=== PATIENT | male | born 1950 | race Caucasian/White ===

== ENCOUNTER → 2017-12-22 12:28 | Outpatient (CLI) | payer MEDICARE, SELFPAY ==
[2017-12-20 10:04] VITALS: TEMP 35.8
--- NOTE | 2017-12-22 14:10 | DI.CT.S_ITS ---
PROCEDURE: CT ABDOMEN PELVIS W CON INDICATIONS: 67 year-old male with left lower quadrant abdominal pain. TECHNIQUE: After the administration of oral and intravenous contrast, 5 mm thick sections acquired from the diaphragms to the symphysis. 5 mm thick coronal and sagittal reformats were performed. For radiation dose reduction, the following was used: automated exposure control, adjustment of mA and/or kV according to patient size. COMPARISON: None. FINDINGS: Image quality: Excellent. ABDOMEN: Lung bases: Lung bases are clear. Heart size is normal. Solid organs: Liver is normal in size, with diffuse fatty infiltration of the liver. Gallbladder wall thickness is normal. Biliary system is non-dilated. Pancreas enhances normally. Spleen is normal in size and enhancement. No adrenal nodules. Kidneys are normal in size and enhancement, with mild left hydroureteronephrosis. On axial image 53, 8 x 5 x 5 mm mid left ureteral stone is present. Peritoneum and bowel: Stomach, small bowel, and colon loops are normal in caliber and wall thickness. There is mild sigmoid colon diverticulosis. The appendix is normal in caliber. No free fluid or air. Nodes and vessels: No retroperitoneal or mesenteric adenopathy. Aorta and inferior vena cava are normal in caliber, with mild aortic atherosclerosis. Miscellaneous: No ventral hernias. PELVIS: Genitourinary: Bladder wall thickness is normal. Prostate gland is normal in size. Miscellaneous: No inguinal hernias or adenopathy. Bones: No suspicious bony lesions. No vertebral body compression fractures. IMPRESSION: 1. 8 x 5 x 5 mm mid left ureteral stone causes mild left hydroureteronephrosis. 2. Mild sigmoid colon diverticulosis, without acute diverticulitis. 3. Diffuse fatty infiltration of the liver. Dictated by: Kael Pérez M.D. on 12/22/2017 at 14:35 Approved by: Kael Pérez M.D. on 12/22/2017 at 14:43
== END ==
PROVIDERS: PCP Family Medicine; Visit Provider Physician Assistant
DX: N20.1 Calculus of ureter (principal); N13.30 Unspecified hydronephrosis; K57.90 Diverticulosis of intestine, part unspecified, without perforation or abscess without bleeding; K76.0 Fatty (change of) liver, not elsewhere classified
CPT/HCPCS: 74177; Q9967

== ENCOUNTER 2017-12-22 20:22 | Emergency (ER) | payer MEDICARE, SELFPAY ==
[2017-12-20 10:04] VITALS: TEMP 35.8
[2017-12-22 20:28] VITALS: BP 151/85; PULSE 80; RESP 16; TEMP 36.3; O2SAT 96; BMI 27.3
[2017-12-22 20:49] LABS: Appearance Urine UA CLEAR; Bilirubin Urine UA NEGATIVE (NEGATIVE); Color Urine UA YELLOW; Glucose Urine UA NEGATIVE (NEGATIVE); Ketones Urine UA NEGATIVE (NEGATIVE); Leukocyte Esterase Urine UA NEGATIVE (NEGATIVE); Nitrite Urine UA NEGATIVE (NEGATIVE); Occult Blood Urine UA 2+ (NEGATIVE); Protein Urine UA NEGATIVE (NEGATIVE); Specific Gravity Urine UA <=1.005 (1.000-1.035); Urobilinogen Urine UA 0.2 E.U./dL (0.2); pH Urine UA 6.5 (4.5-8.0)
[2017-12-22 21:01] LABS: RBC Urine 0-1/HPF (0-5/HPF); Squamous Epithelial Cell Urine None Seen; WBC Urine 1-5/HPF (0-5/HPF)
[2017-12-22 21:02] LABS: Culture Indicated Urine Cult Not Indicated
--- NOTE | 2017-12-22 23:11 | PC.NURSE ---
pt called after left w/o being seen after triaged. pt reports has some pain but tolerable. pt got a call from a doctor to check into er but not sure why. pt denies fever/chills, vomiting or urinary obstruction. pt advised to call pcp in the morning if pt needs to be seen in er and to discuss plan of care and advised RTE if worsening sx, vomiting, fever, unable to void and pt and spouse verbalized the understanding.
--- NOTE | 2017-12-23 03:50 | ED.MALEGU ---
HPI - Male Genitourinary General Chief complaint: Urogenital-Male Stated complaint: KIDNEY STONES History of Present Illness HPI Narrative: patient not seen or evaluated by me. Related Data Home Medications Medication Instructions Recorded Confirmed aspirin 81 mg PO QDAY #0 05/25/17 12/22/17 [vitamin d3] #0 09/09/17 12/20/17 urea [Sandee Lo 39] 1 shmuel TOPICAL QDAY #0 10/05/17 12/22/17 Previous Rx's Medication Instructions Recorded metformin 1,000 mg PO BID #180 mg 12/03/17 Allergies Allergy/AdvReac Type Severity Reaction Status Date / Time naproxen [From NAPROSYN] Allergy Unknown stomach Unverified 12/20/17 09:57 pain PFSH Medical History Diabetes mellitus (Acute) Surgical History Status post knee surgery Family History Father Heart disease Mother Age: 89 Cancer Hypertension Social History Smoking Status: Never smoker MDM - Male Genitourinary Lab Data Lab Results 12/22/17 Range/Units 20:36 Urine Color Yellow Urine Appearance Clear Urine pH 6.5 (4.5-8.0) Ur Specific [place] <=1.005 (1.000-1.035) Urine Protein Negative (NEGATIVE) Urine Glucose (UA) Negative (NEGATIVE) g/dL Urine Ketones Negative (NEGATIVE) Urine Occult Blood 2+ H (NEGATIVE) Urine Nitrate Negative (NEGATIVE) Urine Bilirubin Negative (NEGATIVE) Urine Urobilinogen 0.2 (0.2) E.U./dL Ur Leukocyte Esterase Negative (NEGATIVE) Urine RBC 0-1/hpf D (0-5/HPF) Urine WBC 1-5/hpf (0-5/HPF) Ur Squamous Epith Cells None seen Ur Culture Indicated? Cult not indicated Micro UA Comment Not Reportable Discharge Plan Departure Patient Disposition: Left Against Medical Advice Discharge Date/Time: 12/22/17 22:30 Interventions: ED Discharge Assessment Last Done: 12/22/17 23:14
== END 2017-12-22 22:30 | disposition left against medical advice (07) ==
PROVIDERS: Emergency Provider Emergency Medicine; Family Provider Family Medicine; PCP Family Medicine
DX: R10.32 Left lower quadrant pain (principal); N20.0 Calculus of kidney
CPT/HCPCS: 74177; 81001; 81003; 99282; Q9967

== ENCOUNTER 2018-01-24 18:09 | Inpatient (IN) | payer MEDICARE, SELFPAY ==
--- NOTE | 2018-01-24 18:13 | ED_ITS ---
HPI - General Adult General Chief complaint: Urogenital-Male Stated complaint: BODY SHAKES,BLOOD IN URINE,PALE HANDS Time Seen by Provider: 01/24/18 18:12 Source: patient Mode of arrival: ambulatory Limitations: no limitations History of Present Illness HPI narrative: Male here and blood in his urine. Patient states that approximately 1.5 weeks ago he had a left-sided lithotripsy and stent placement for a renal stone. Patient states that the procedure went well. He states that since then he has had progressive worsening of blood in his urine and urinary incontinence. Patient states that his pain has been controlled. He states that last night at approximately 3 o'clock in the morning he had a sudden onset of rigors. He states that he has not felt feverish. Also had body aches. States that he crawled under some blankets. He states that this morning things improved somewhat but then returned this afternoon. Still having urinary symptoms. States that the stent is painful however has been controlled. He is currently not on any antibiotics. Related Data Home Medications Medication Instructions Recorded Confirmed aspirin 81 mg PO QDAY #0 05/25/17 12/30/17 [vitamin d3] #0 09/09/17 12/30/17 urea [[place] Lo 39] 1 shmuel TOPICAL QDAY #0 10/05/17 12/30/17 multivitamin capsule 1 cap PO DAILY 12/30/17 12/30/17 niacinamide 100 mg tablet 100 mg PO DAILY 12/30/17 12/30/17 red yeast rice 600 mg capsule 600 mg PO BID 12/30/17 12/30/17 Previous Rx's Medication Instructions Recorded metformin 1,000 mg PO BID #180 mg 12/03/17 oxycodone-acetaminophen 5 mg-325 1 tab PO Q4H PRN #20 tab 12/23/17 mg tablet tamsulosin 0.4 mg capsule 0.4 mg PO DAILY #30 cap 12/23/17 Allergies Allergy/AdvReac Type Severity Reaction Status Date / Time naproxen [From NAPROSYN] Allergy Unknown stomach Verified 01/24/18 18:41 pain Review of Systems Constitutional Reports body ache(s), Reports chills, Reports fatigue, Denies fever(s), Denies headache(s), Denies lethargy and Denies weakness ENT Ears, Nose, Mouth, and Throat: Denies vertigo, Denies dizziness and Denies headache(s) Cardiovascular Denies chest pain, Denies irregular heart rhythm, Denies lightheadedness, Denies palpitations, Denies dyspnea, Denies dyspnea on exertion and Denies orthopnea Respiratory Denies cough, Denies dyspnea, Denies dyspnea on exertion and Denies wheezing Gastrointestinal Gastrointestinal: Denies abdominal pain, Denies change in bowel habits, Denies diarrhea, Denies nausea and Denies vomiting Genitourinary Comments: Blood in his urine, painful stent, urinary incontinence Musculoskeletal Denies back pain, Denies muscle weakness, Denies numbness and Denies tingling Integumentary/Breasts Denies pruritus, Denies erythema, Denies rash and Denies wounds Neurologic Denies confusion, Denies vertigo, Denies dizziness, Denies headache(s), Denies numbness, Denies tingling and Denies weakness Psychiatric Denies confusion Endocrine Reports fatigue and Denies palpitations Hematologic/Lymphatic Denies easy bruising Allergic/Immunologic Denies wheezing FOR[facility] Medical History Nephrolithiasis (Acute) Multiple actinic keratoses (09/09/17) Rosacea (09/09/17) Type 2 diabetes mellitus without complication, without long-term current use of insulin (09/09/17) Diabetes mellitus (Acute) Surgical History Status post knee surgery Family History Father Heart disease Mother Age: 89 Cancer Hypertension Social History Smoking Status: Never smoker Exam Initial Vital Signs Initial Vital Signs: Vital Signs Temperature 97.8 F 01/24/18 18:15 Pulse Rate 128 H 01/24/18 18:15 Respiratory Rate 20 01/24/18 18:15 Pulse Oximetry 99 01/24/18 18:15 Const General: cooperative, healthy appearing, comfortable, well developed and No acute distress Nutritional Appearance: average body habitus Orientation: alert, awake and oriented x3 HENMT Head: normal to inspection, normocephalic and atraumatic Resp Effort & Inspection: normal respiratory effort, able to speak in complete sentences, no respiratory distress and no use of accessory muscles Auscultation: clear to auscultation bilaterally, no rales, no rhonchi and no wheezes Cardio Rate: tachycardic Rhythm: regular rhythm Pulses: radial pulses present GI Inspection: normal to inspection and non-distended Palpation: soft, No firm, No guarding and No tender Back/Spine/Pelvis Back: No CVA tenderness Skin General: no rashes or lesions noted and pallor Lesions: no lesions Rashes: no rashes Neuro General: alert, awake and oriented x3 Cognition: normal cognition Speech: speech normal Motor: muscle tone normal throughout Sensory Exam: no sensory deficits noted Extrem General: normal to inspection, capillary refill normal and normal exam except as noted Course Orders Ordered: ED Orders 01/24/18 18:30 Blood Culture Stat Complete Blood Count AUTO DIFF Stat Comprehensive Metabolic Panel Stat Lactate (Lactic Acid) Stat Lipase Stat Type and Screen Stat 01/24/18 19:15 Ictotest Urine Stat Urinalysis and Microscopic Stat Urine Culture Stat Discontinued Medications Sodium Chloride (Normal Saline 0.9%) 1,000 mls @ 1,000 mls/hr IV BOLUS ONE Stop: 01/24/18 19:36 Last Infusion: 01/24/18 19:42 Dose: 0 mls/hr Admin: 01/24/18 18:41 Dose: 1,000 mls/hr Vital Signs - 8 hr 01/24/18 18:15 01/24/18 19:42 01/24/18 19:43 Temperature 97.8 F Pulse Rate 128 H 102 H 102 H Respiratory Rate 20 20 Blood Pressure [Right Arm] 146/59 H 146/59 H Pulse Oximetry 99 [address] [facility] Narrative Medical decision making narrative: Patient with nitrite positive urine with white blood cells and bacteria. Has an elevated white blood cell count and was tachycardic upon arrival. Not hypotensive. Does have an elevated lactate. Discussed the case with Dr. De Dios who is communications equipment supervisor for the patient's urology group. The patient's urologist ismichelet Gonsales at [facility]. Dr. De Dios reviewed the patient's clinic labs and found that the patient has no prior positive urine cultures. No prior urine cultures here and our system that were positive. Will give the patient 2 g of Ancef and IV fluids. Discussed the case with patient's primary Dr Gross who accepts admission. Will admit the patient for IV antibiotics and fluid resuscitation. Blood cultures were ordered. Urine culture also ordered. Discussed the plan with the patient and his . They expressed understanding and agreement. Lab Data Lab results reviewed: Yes I reviewed the patient's lab results. Result diagrams: 01/24/18 18:30 01/24/18 18:30 Lab Results 01/24/18 01/24/18 01/24/18 Range/Units 18:30 18:30 18:30 WBC 15.2 H (4.5-11.0) X10^3/uL RBC 4.87 (4.5-5.9) X10^6/uL Hgb 15.4 (13.5-17.5) g/dL Hct 44.2 (41-53) % MCV 90.8 (80-100) fL MCH 31.7 (26-34) PG MCHC 34.9 (30-36) % RDW 12.9 (11.6-14.8) % Plt Count 206 (150-400) X10^3/uL Neut % (Auto) 61.7 (50-75) % Lymph % (Auto) 26.4 (25-40) % Charl[place] % (Auto) 11.2 (3-14) % Eos % (Auto) 0.2 L (2-4) % Baso % (Auto) 0.5 (0-2) % Neut # (Auto) 9400 H (0769-7558) /uL Sodium 143 (137-145) mmol/L Potassium 3.7 (3.4-5.1) mmol/L Chloride 98 (98-107) mmol/L Carbon Dioxide 27 (22-32) mmol/L BUN 16 (9-20) mg/dL Creatinine 1.00 (0.66-1.25) mg/dL Estimated GFR > 60.0 (>60) mL/min BUN/Creatinine Ratio 16.0 (6-22) Glucose 193 H (80-110) mg/dL Lactate 2.8 H (0.7-2.1) mmol/L Calcium 9.8 (8.4-10.2) mg/dL Total Bilirubin 1.0 (0.2-1.3) mg/dL AST 35 (17-59) IU/L ALT 60 (21-72) IU/L Alkaline Phosphatase 78 (38-126) U/L Total Protein 8.1 (6.3-8.2) g/dL Albumin 4.7 (3.5-5.0) g/dL Globulin 3.4 (1.7-4.1) g/dL Albumin/Globulin Ratio 1.4 (1.0-2.8) Lipase 84 (23-300) U/L Urine Color Urine Appearance Urine pH (4.5-8.0) Ur Specific [place] (1.000-1.035) Urine Protein (Negative) Urine Glucose (UA) (Normal) g/dL Urine Ketones (NEGATIVE) Urine Occult Blood (Negative) Urine Nitrate (Negative) Urine Bilirubin (NEGATIVE) Urine Ictotest (Negative) Urine Urobilinogen (0.2) E.U./dL Ur Leukocyte Esterase (NEGATIVE) Urine RBC (0-5/HPF) Urine WBC (0-5/HPF) Ur Squamous Epith Cells Urine Bacteria (None) Ur Culture Indicated? Micro UA Comment Blood Type Antibody Screen 01/24/18 01/24/18 Range/Units 18:30 19:15 WBC (4.5-11.0) X10^3/uL RBC (4.5-5.9) X10^6/uL Hgb (13.5-17.5) g/dL Hct (41-53) % MCV (80-100) fL MCH (26-34) PG MCHC (30-36) % RDW (11.6-14.8) % Plt Count (150-400) X10^3/uL Neut % (Auto) (50-75) % Lymph % (Auto) (25-40) % [place] % (Auto) (3-14) % Eos % (Auto) (2-4) % Baso % (Auto) (0-2) % Neut # (Auto) (0004-1600) /uL Sodium (137-145) mmol/L Potassium (3.4-5.1) mmol/L Chloride (98-107) mmol/L Carbon Dioxide (22-32) mmol/L BUN (9-20) mg/dL Creatinine (0.66-1.25) mg/dL Estimated GFR (>60) mL/min BUN/Creatinine Ratio (6-22) Glucose (80-110) mg/dL Lactate (0.7-2.1) mmol/L Calcium (8.4-10.2) mg/dL Total Bilirubin (0.2-1.3) mg/dL AST (17-59) IU/L ALT (21-72) IU/L Alkaline Phosphatase (38-126) U/L Total Protein (6.3-8.2) g/dL Albumin (3.5-5.0) g/dL Globulin (1.7-4.1) g/dL Albumin/Globulin Ratio (1.0-2.8) Lipase (23-300) U/L Urine Color Red Urine Appearance Sl cloudy Urine pH 5.0 (4.5-8.0) Ur Specific [place] 1.025 (1.000-1.035) Urine Protein 3+ H (Negative) Urine Glucose (UA) Trace (Normal) g/dL Urine Ketones Trace H (NEGATIVE) Urine Occult Blood 3+ H (Negative) Urine Nitrate Positive (Negative) Urine Bilirubin 1+ H (NEGATIVE) Urine Ictotest Negative (Negative) Urine Urobilinogen 0.2 (0.2) E.U./dL Ur Leukocyte Esterase Trace H (NEGATIVE) Urine RBC >100/hpf (0-5/HPF) Urine WBC 5-10/hpf H (0-5/HPF) Ur Squamous Epith Cells 0-1 /hpf Urine Bacteria Few (2-10) H (None) Ur Culture Indicated? Not Reportable Micro UA Comment Not Reportable Blood Type O Positive Antibody Screen Negative Discharge Plan Departure Patient Disposition: Admitted as Observation Clinical Impression: Sepsis, Urinary tract infection Prescriptions: No Action aspirin 81 MG tablet,delayed release (DR/EC) 81 mg PO QDAY Qty: 0 RF: 0 [vitamin d3] Qty: 0 RF: 0 urea [[place] Lo 39] 39 % cream 1 shmuel Topical QDAY Qty: 0 RF: 0 metformin 1,000 MG tablet 1,000 mg PO BID Qty: 180 RF: 0 tamsulosin 0.4 mg capsule,extended release 24hr 0.4 mg PO DAILY Qty: 30 RF: 0 oxycodone-acetaminophen [Percocet] 5-325 mg tablet 1 tab PO Q4H PRN (Reason: pain) Qty: 20 RF: 0 multivitamin capsule 1 cap PO DAILY RF: 0 red yeast rice 600 mg capsule 600 mg PO BID RF: 0 niacinamide 100 mg tablet 100 mg PO DAILY RF: 0
[2018-01-24 18:15] VITALS: PULSE 128; RESP 20; TEMP 36.6; O2SAT 99; BMI 26.4
[2018-01-24] MEDS: SODIUM CHLORIDE 0.9% 1,000 ML 1000 ML IV (18:41)
--- NOTE | 2018-01-24 18:43 | PC.NURSE ---
IV start with 1st BC, Lactate, rainbow, tall purple tubes
[2018-01-24 18:46] LABS: Add Manual Diff / Slide Review NO; Basophils Percent Auto 0.5 % (0-2); Eosinophils Percent Auto 0.2 % (2-4); Hematocrit 44.2 % (41-53); Hemoglobin 15.4 g/dL (13.5-17.5); Lymphocytes Percent Auto 26.4 % (25-40); Mean Corpuscular HGB Conc 34.9 % (30-36); Mean Corpuscular Hemoglobin 31.7 PG (26-34); Mean Corpuscular Volume 90.8 fL (80-100); Monocytes Percent Auto 11.2 % (3-14); Neutrophils Absolute Auto 9400 /uL (3000-5900); Neutrophils Percent Auto 61.7 % (50-75); Platelet Count 206 X10^3/uL (150-400); Red Blood Cell Count 4.87 X10^6/uL (4.5-5.9); Red Cell Distribution Width 12.9 % (11.6-14.8); White Blood Cell Count 15.2 X10^3/uL (4.5-11.0)
[2018-01-24 18:53] LABS: Lactate (Lactic Acid) 2.8 mmol/L (0.7-2.1)
[2018-01-24 18:54] LABS: Alanine Aminotransferase 60 IU/L (21-72); Albumin 4.7 g/dL (3.5-5.0); Albumin Globulin Ratio 1.4 (1.0-2.8); Alkaline Phosphatase 78 U/L (38-126); Aspartate Aminotransferase 35 IU/L (17-59); Blood Urea Nitrogen 16 mg/dL (9-20); Calcium 9.8 mg/dL (8.4-10.2); Carbon Dioxide 27 mmol/L (22-32); Chloride 98 mmol/L (98-107); Estimated Glomerular Filt Rate > 60.0 mL/min (>60); Globulin 3.4 g/dL (1.7-4.1); Glucose 193 mg/dL (80-110); HEMOLYSIS < 15 (0-50); Lipase 84 U/L (23-300); Sodium 143 mmol/L (137-145); Total Protein 8.1 g/dL (6.3-8.2)
[2018-01-24 19:11] LABS: Potassium 3.7 mmol/L (3.4-5.1)
[2018-01-24 19:20] LABS: Appearance Urine UA SL CLOUDY; Bilirubin Urine UA 1+ (NEGATIVE); Color Urine UA RED; Glucose Urine UA TRACE g/dL (Normal); Ketones Urine UA TRACE (NEGATIVE); Leukocyte Esterase Urine UA TRACE (NEGATIVE); Nitrite Urine UA POSITIVE (Negative); Occult Blood Urine UA 3+ (Negative); Protein Urine UA 3+ (Negative); Specific Gravity Urine UA 1.025 (1.000-1.035); Urobilinogen Urine UA 0.2 E.U./dL (0.2)
[2018-01-24 19:33] LABS: Ictotest Urine Negative (Negative); RBC Urine >100/HPF (0-5/HPF); Squamous Epithelial Cell Urine 0-1 /HPF; WBC Urine 5-10/HPF (0-5/HPF)
[2018-01-24 19:34] LABS: Bacteria Urine Few (2-10)
[2018-01-24 19:42] VITALS: BP 146/59; PULSE 102; RESP 20; O2SAT 96
[2018-01-24 19:43] VITALS: BP 146/59; PULSE 102; O2SAT 96
--- NOTE | 2018-01-24 19:50 | PC.NURSE ---
reports had lithotripsy and stent placed in L Ureter 01/07. Having incontinence ever since. Hematuria and shaking chills w/o fever
[2018-01-24] MEDS: SODIUM CHLORIDE 0.9% 1,000 ML 150 ML IV (20:14)
[2018-01-24] MEDS: CEFTRIAXONE 2 GM/50 ML FROZ.PIGGY IV (20:14)
[2018-01-24 20:53] VITALS: BP 129/67; PULSE 109; RESP 16; O2SAT 98
--- NOTE | 2018-01-24 21:25 | PM.HP.1 ---
History of Present Illness Date Patient Seen: 01/24/18 Time Patient Seen: 21:00 Chief complaint: BODY SHAKES,BLOOD IN URINE,PALE HANDS Narrative: 68-year-old male with a history of type 2 diabetes with recent left urolithiasis status post lithotripsy and stenting now with chills and rigors. On 01/14/18 he underwent lithotripsy and left ureteral stent placement with Dr. Gonsales at [facility] for a large left ureteral stone not responsive to conservative management. Following the procedure he had persistent hematuria and intermittent urinary incontinence but was told this was within the realm of normal after his procedure. In the last three or four days he has had progressively worse urinary incontinence as well as continued hematuria and subjective fevers. Approximately 3:00 a.m. this morning he developed terrible shakes and chills. He turned up the heat and crawled under multiple blankets and went back to bed for several hours. He did okay throughout the day until dinnertime this evening when the shakes and chills returned. He was brought to the emergency department by his . He continues to have left-sided flank pain however he states it feels different than when he had the stone. Rates his pain 3-4/10. He has been managing with Tylenol and ibuprofen with only occasional oxycodone. In the emergency department UA was positive for infection. White blood cell count was elevated as was lactate. Dr. Zhu spoke with Dr. De Dios with Urology who recommended IV antibiotics and leaving his stent in place. There is no need for surgical intervention at this time so patient will be admitted to [facility]. His mother's 90th birthday is in two days and he hopes to be out of the hospital by then. 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 Safety & Behavioral: Feels Safe in Current Yes Environment Been Physically Hurt or No Threatened By a Person Tobacco & Substance use: Smoking Status Never smoker alcohol intake frequency a few times a week Substance Use Type does not use Meds Home Medications Medication Instructions Recorded Confirmed Type aspirin 81 mg PO QDAY #0 05/25/17 01/24/18 History [vitamin d3] 1 tab PO DAILY #0 09/09/17 01/24/18 History metformin 1,000 mg PO BID #180 mg 12/03/17 01/24/18 Rx oxycodone-acetaminophen 5 mg-325 1 tab PO Q4H PRN #20 tab 12/23/17 01/24/18 Rx mg tablet tamsulosin 0.4 mg capsule 0.4 mg PO DAILY #30 cap 12/23/17 01/24/18 Rx multivitamin capsule 1 cap PO DAILY 12/30/17 01/24/18 History red yeast rice 600 mg capsule 600 mg PO BID 12/30/17 01/24/18 History Allergies Allergy/AdvReac Type Severity Reaction Status Date / Time naproxen [From NAPROSYN] Allergy Unknown stomach Verified 01/24/18 18:41 pain Review of Systems Constitutional Constitutional: Reports fatigue, Reports fever(s) and Reports poor appetite Gastrointestinal Gastrointestinal: Reports abdominal pain and Reports loose stools Genitourinary Genitourinary: Reports hematuria and Reports urinary incontinence Endocrine Endocrine: Reports fatigue Exam Vital Signs (past 8 hours): Vital Signs - 8 hr 01/24/18 18:15 01/24/18 19:42 01/24/18 19:43 Temperature 97.8 F Pulse Rate 128 H 102 H 102 H Respiratory Rate 20 20 Blood Pressure Blood Pressure [Right Arm] 146/59 H 146/59 H Pulse Oximetry 99 96 96 01/24/18 20:53 Temperature Pulse Rate 109 H Respiratory Rate 16 Blood Pressure 129/67 H Blood Pressure [Right Arm] Pulse Oximetry 98 Pulse Oximetry 98 Oxygen Delivery Method Room Air General: Slightly diaphoretic. Awake and alert, no acute distress. HEENT: NCAT, EOMI, moist oral mucosa CV: Regular rate and rhythm, no murmurs, rubs or gallops Lungs: CTAB, no wheezes, rales, or rhonchi Abdomen: Soft; bowel tones active; tender to palpation in the left flank without guarding; no hepatosplenomegaly Extremities: Warm, no edema, 2+ pedal pulses bilaterally Objective Labs Result Diagrams: 01/24/18 18:30 01/24/18 18:30 Labs: Laboratory Results - last 24 hr 01/24/18 01/24/18 01/24/18 18:30 18:30 18:30 WBC 15.2 H RBC 4.87 Hgb 15.4 Hct 44.2 MCV 90.8 MCH 31.7 MCHC 34.9 RDW 12.9 Plt Count 206 Neut % (Auto) 61.7 Lymph % (Auto) 26.4 [place] % (Auto) 11.2 Eos % (Auto) 0.2 L Baso % (Auto) 0.5 Neut # (Auto) 9400 H Sodium 143 Potassium 3.7 Chloride 98 Carbon Dioxide 27 BUN 16 Creatinine 1.00 Estimated GFR > 60.0 BUN/Creatinine Ratio 16.0 Glucose 193 H Lactate 2.8 H Calcium 9.8 Total Bilirubin 1.0 AST 35 ALT 60 Alkaline Phosphatase 78 Total Protein 8.1 Albumin 4.7 Globulin 3.4 Albumin/Globulin Ratio 1.4 Lipase 84 Urine Color Urine Appearance Urine pH Ur Specific [place] Urine Protein Urine Glucose (UA) Urine Ketones Urine Occult Blood Urine Nitrate Urine Bilirubin Urine Ictotest Urine Urobilinogen Ur Leukocyte Esterase Urine RBC Urine WBC Ur Squamous Epith Cells Urine Bacteria Ur Culture Indicated? Micro UA Comment Blood Type Antibody Screen 01/24/18 01/24/18 18:30 19:15 WBC RBC Hgb Hct MCV MCH MCHC RDW Plt Count Neut % (Auto) Lymph % (Auto) [place] % (Auto) Eos % (Auto) Baso % (Auto) Neut # (Auto) Sodium Potassium Chloride Carbon Dioxide BUN Creatinine Estimated GFR BUN/Creatinine Ratio Glucose Lactate Calcium Total Bilirubin AST ALT Alkaline Phosphatase Total Protein Albumin Globulin Albumin/Globulin Ratio Lipase Urine Color Red Urine Appearance Sl cloudy Urine pH 5.0 Ur Specific [place] 1.025 Urine Protein 3+ H Urine Glucose (UA) Trace Urine Ketones Trace H Urine Occult Blood 3+ H Urine Nitrate Positive Urine Bilirubin 1+ H Urine Ictotest Negative Urine Urobilinogen 0.2 Ur Leukocyte Esterase Trace H Urine RBC >100/hpf Urine WBC 5-10/hpf H Ur Squamous Epith Cells 0-1 /hpf Urine Bacteria Few (2-10) H Ur Culture Indicated? Not Reportable Micro UA Comment Not Reportable Blood Type O Positive Antibody Screen Negative Assessment & Plan (1) Sepsis: Qualifiers: Sepsis type: sepsis due to unspecified organism Qualified Code(s): A41.9 - Sepsis, unspecified organism Current visit: Yes Status: Acute (2) Urinary tract infection: Qualifiers: Encounter type: Hematuria presence: with hematuria Indwelling urinary catheter type: Urinary tract infection type: site unspecified Qualified Code(s): N39.0 - Urinary tract infection, site not specified; R31.9 - Hematuria, unspecified Current visit: Yes Status: Acute (3) Nephrolithiasis: Current visit: No Status: Acute (4) Type 2 diabetes mellitus without complication, without long-term current use of insulin: Current visit: No Status: None Plan: Assessment/Plan Narrative: Sepsis secondary to urinary tract infection following left ureteral stent placement and lithotripsy on 01/14/18 - patient with tachycardia, leukocytosis and elevated lactate - empiric treatment with ceftriaxone, will narrow antibiotics once urine culture sensitivities return - IV fluid resuscitation - ibuprofen, acetaminophen, oxycodone as needed - appreciate Urology input from the ER Type 2 diabetes - hold metformin while inpatient - monitor blood sugars Diet: Diabetic diet DVT prophylaxis: SCDs Code status: Full code Disposition: I anticipate the care of this patient to cross two midnights while treating sepsis and awaiting culture sensitivities to guide outpatient treatment.
[2018-01-24 21:29] VITALS: BMI 26.4
[2018-01-24 21:56] VITALS: BP 142/75; PULSE 117; RESP 16; TEMP 38.6; O2SAT 97
[2018-01-24 22:23] VITALS: TEMP 38.6
[2018-01-24] MEDS: ACETAMINOPHEN 325 MG TABLET 650 MG PO (22:23)
[2018-01-24 22:41] LABS: Reflexed Lactate in 2 Hours Y
[2018-01-25] VITALS (10 sets, daily range): BP systolic 128–145; BP diastolic 64–92; PULSE 68–91; RESP 16–28; TEMP 36.7–38.3; O2SAT 95–99
--- NOTE | 2018-01-25 | DI.RAD.S_ITS ---
PROCEDURE: XR KUB INDICATIONS: left ureteral stent check TECHNIQUE: One view of the abdomen acquired. COMPARISON: [facility], CR, XR ABDOMEN 1 VIEW, 01/07/2018, 10:01. FINDINGS: Surgical changes and devices: Left ureteral stent, proximal and distal segments appearing in the expected location. Bowel: Bowel gas pattern is normal. Soft tissues: No suspicious abdominal calcifications. Visualized solid organ contours appear normal in size. Bones: No suspicious bony lesions. IMPRESSION: Left ureteral stent in place. No visible calcifications along the stent. Dictated by: Efren Hong M.D. on 01/25/2018 at 11:09 Approved by: Efren Hong M.D. on 01/25/2018 at 11:11
[2018-01-25 00:19] LABS: Lactate 2HR (Lactic Acid Rflx) 1.3 mmol/L (0.7-2.1)
[2018-01-25] MEDS: SODIUM CHLORIDE 0.9% 1,000 ML 150 ML IV ×2 (04:40→09:48)
[2018-01-25 06:07] LABS: Add Manual Diff / Slide Review NO; Basophils Percent Auto 0.5 % (0-2); Eosinophils Percent Auto 0.3 % (2-4); Hematocrit 40.6 % (41-53); Hemoglobin 14.1 g/dL (13.5-17.5); Lymphocytes Percent Auto 16.3 % (25-40); Mean Corpuscular HGB Conc 34.8 % (30-36); Mean Corpuscular Hemoglobin 31.6 PG (26-34); Mean Corpuscular Volume 90.9 fL (80-100); Monocytes Percent Auto 13.9 % (3-14); Neutrophils Absolute Auto 8200 /uL (3000-5900); Platelet Count 150 X10^3/uL (150-400); Red Blood Cell Count 4.46 X10^6/uL (4.5-5.9); Red Cell Distribution Width 12.8 % (11.6-14.8); White Blood Cell Count 11.9 X10^3/uL (4.5-11.0)
[2018-01-25 06:11] LABS: BUN Creatinine Ratio 14.4 (6-22); Blood Urea Nitrogen 13 mg/dL (9-20); Calcium 8.8 mg/dL (8.4-10.2); Carbon Dioxide 25 mmol/L (22-32); Chloride 104 mmol/L (98-107); Estimated Glomerular Filt Rate > 60.0 mL/min (>60); Glucose 164 mg/dL (80-110); HEMOLYSIS 16 (0-50); Potassium 4.1 mmol/L (3.4-5.1); Sodium 140 mmol/L (137-145)
[2018-01-25] MEDS: ACETAMINOPHEN 325 MG TABLET 650 MG PO ×2 (07:45→16:55)
[2018-01-25] MEDS: TAMSULOSIN 0.4 MG CAPSULE PO (08:23)
--- NOTE | 2018-01-25 09:07 | PC.NURSE ---
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 had 2 episodes of shaking & feeling cold at 0400 & 0440. Oral temp checked at 0400 for 98.3F. Warm blanket given. Pt OOB, stood at bedside to use urinal. Voiding small amounts, also has stress inc. Urine clear and braulio, no blood/sediment visualized.
--- NOTE | 2018-01-25 10:30 | PM.PN.1 ---
Subjective Date Patient Seen: 01/25/18 Time Patient Seen: 10:30 Interval history: Patient had intermittent rigors overnight but no fevers. No appetite today but denies nausea. Continues to be incontinent of urine. Pain today is 2/10, better than yesterday. Still not feeling great. Was up a lot during the night with interruptions. Exam Vital Signs (past 8 hours): Vital Signs - 8 hr 01/25/18 04:04 01/25/18 08:00 01/25/18 08:48 Temperature 98.3 F 99.5 F 99.7 F H Pulse Rate 90 91 H Respiratory Rate 18 16 Blood Pressure 141/92 H 136/69 H Pulse Oximetry 99 98 Pulse Oximetry 98 Oxygen Delivery Method Room Air General: Awake and alert, no acute distress. HEENT: NCAT, EOMI, moist oral mucosa CV: Regular rate and rhythm, no murmurs, rubs or gallops Lungs: CTAB, no wheezes, rales, or rhonchi Abdomen: Soft, nontender; bowel tones active; no hepatosplenomegaly Extremities: Warm, no edema, 2+ pedal pulses bilaterally Objective Labs Result Diagrams: 01/25/18 05:35 01/25/18 05:35 Labs: Laboratory Results - last 24 hr 01/24/18 01/24/18 01/24/18 18:30 18:30 18:30 WBC 15.2 H RBC 4.87 Hgb 15.4 Hct 44.2 MCV 90.8 MCH 31.7 MCHC 34.9 RDW 12.9 Plt Count 206 Neut % (Auto) 61.7 Lymph % (Auto) 26.4 [place] % (Auto) 11.2 Eos % (Auto) 0.2 L Baso % (Auto) 0.5 Neut # (Auto) 9400 H Sodium 143 Potassium 3.7 Chloride 98 Carbon Dioxide 27 BUN 16 Creatinine 1.00 Estimated GFR > 60.0 BUN/Creatinine Ratio 16.0 Glucose 193 H Lactate 2.8 H Calcium 9.8 Total Bilirubin 1.0 AST 35 ALT 60 Alkaline Phosphatase 78 Total Protein 8.1 Albumin 4.7 Globulin 3.4 Albumin/Globulin Ratio 1.4 Lipase 84 Urine Color Urine Appearance Urine pH Ur Specific [place] Urine Protein Urine Glucose (UA) Urine Ketones Urine Occult Blood Urine Nitrate Urine Bilirubin Urine Ictotest Urine Urobilinogen Ur Leukocyte Esterase Urine RBC Urine WBC Ur Squamous Epith Cells Urine Bacteria Ur Culture Indicated? Micro UA Comment Blood Type Antibody Screen 01/24/18 01/24/18 01/24/18 18:30 19:15 23:58 WBC RBC Hgb Hct MCV MCH MCHC RDW Plt Count Neut % (Auto) Lymph % (Auto) [place] % (Auto) Eos % (Auto) Baso % (Auto) Neut # (Auto) Sodium Potassium Chloride Carbon Dioxide BUN Creatinine Estimated GFR BUN/Creatinine Ratio Glucose Lactate 1.3 Calcium Total Bilirubin AST ALT Alkaline Phosphatase Total Protein Albumin Globulin Albumin/Globulin Ratio Lipase Urine Color Red Urine Appearance Sl cloudy Urine pH 5.0 Ur Specific [place] 1.025 Urine Protein 3+ H Urine Glucose (UA) Trace Urine Ketones Trace H Urine Occult Blood 3+ H Urine Nitrate Positive Urine Bilirubin 1+ H Urine Ictotest Negative Urine Urobilinogen 0.2 Ur Leukocyte Esterase Trace H Urine RBC >100/hpf Urine WBC 5-10/hpf H Ur Squamous Epith Cells 0-1 /hpf Urine Bacteria Few (2-10) H Ur Culture Indicated? Not Reportable Micro UA Comment Not Reportable Blood Type O Positive Antibody Screen Negative 01/25/18 01/25/18 05:35 05:35 WBC 11.9 H RBC 4.46 L Hgb 14.1 Hct 40.6 L MCV 90.9 MCH 31.6 MCHC 34.8 RDW 12.8 Plt Count 150 Neut % (Auto) 69.0 Lymph % (Auto) 16.3 L [place] % (Auto) 13.9 Eos % (Auto) 0.3 L Baso % (Auto) 0.5 Neut # (Auto) 8200 H Sodium 140 Potassium 4.1 Chloride 104 Carbon Dioxide 25 BUN 13 Creatinine 0.90 Estimated GFR > 60.0 BUN/Creatinine Ratio 14.4 Glucose 164 H Lactate Calcium 8.8 Total Bilirubin AST ALT Alkaline Phosphatase Total Protein Albumin Globulin Albumin/Globulin Ratio Lipase Urine Color Urine Appearance Urine pH Ur Specific [place] Urine Protein Urine Glucose (UA) Urine Ketones Urine Occult Blood Urine Nitrate Urine Bilirubin Urine Ictotest Urine Urobilinogen Ur Leukocyte Esterase Urine RBC Urine WBC Ur Squamous Epith Cells Urine Bacteria Ur Culture Indicated? Micro UA Comment Blood Type Antibody Screen Assessment & Plan (1) Sepsis: Qualifiers: Sepsis type: sepsis due to unspecified organism Qualified Code(s): A41.9 - Sepsis, unspecified organism Current visit: Yes Status: Acute (2) Urinary tract infection: Qualifiers: Encounter type: Hematuria presence: with hematuria Indwelling urinary catheter type: Urinary tract infection type: site unspecified Qualified Code(s): N39.0 - Urinary tract infection, site not specified; R31.9 - Hematuria, unspecified Current visit: Yes Status: Acute (3) Nephrolithiasis: Current visit: No Status: Acute (4) Type 2 diabetes mellitus without complication, without long-term current use of insulin: Current visit: No Status: None Plan: Assessment/Plan Narrative: Sepsis secondary to urinary tract infection following left ureteral stent placement and lithotripsy on 01/14/18 - continue ceftriaxone while awaiting culture and sensitivity results - will check a KUB today to verify the location of the left ureteral stent Type 2 diabetes - restart metformin - monitor blood sugars Diet: Diabetic diet DVT prophylaxis: SCDs Code status: Full code Disposition: Possible discharge home tomorrow if he continues to improve and urine culture sensitivities returned to narrow antibiotics. Quality VTE Deep Vein Thrombosis/Pulmonary Embolism Present on Admission: No
[2018-01-25 19:29] LABS: Acinetobacter baumannii Not Detected (Not Detect); Candida albicans Not Detected (Not Detect); Candida glabrata Not Detected (Not Detect); Candida krusei Not Detected (Not Detect); Candida parapsilosis Not Detected (Not Detect); E. coli Not Detected (Not Detect); Enterobacter cloacae complex Not Detected (Not Detect); Enterobacteriaceae species Not Detected (Not Detect); Enterococcus species Not Detected (Not Detect); Haemophilus influenzae Not Detected (Not Detect); Listeria monocytogenes Not Detected (Not Detect); Neisseria meningitidis Not Detected (Not Detect); Proteus species Not Detected (Not Detect); Pseudomonas aeruginosa Not Detected (Not Detect); Serratia marcescens Not Detected (Not Detect); Staphylococcus species Detected (Not Detect); Streptococcus agalactiae (Gr B Not Detected (Not Detect); Streptococcus pneumonia Not Detected (Not Detect); Streptococcus pyogenes (Gr A) Not Detected (Not Detect); Streptococcus species Not Detected (Not Detect)
[2018-01-25 19:30] LABS: Candida tropicalis Not Detected (Not Detect)
[2018-01-25] MEDS: CEFTRIAXONE 2 GM/50 ML FROZ.PIGGY IV (20:35)
[2018-01-25] MEDS: METFORMIN HCL 500 MG TABLET 1000 MG PO (20:38)
--- NOTE | 2018-01-25 23:39 | PC.NURSE ---
Dr Aguirre notified of positive blood cultures; one bottle positive growing staph aureus. No new orders given. Patient now on contact isolation per hospital protocol. Patient & aware of reason for precautions. Pt had temp of 100.9 at 1545, medicated with 2 Tylenol and has been afebrile since. Also c/o ELLIS pain, reporting good pain relief from Tylenol. IV NS infusing at 150 ml/hour, IV Rocephin infused per schedule. Pt voiding via urinal, reports frequency, urine cloudy braulio. Denies nausea & tolerating ADA diet. Ox3 and using call button appropriately.
[2018-01-26] VITALS (7 sets, daily range): BP systolic 139–142; BP diastolic 70–71; PULSE 68–82; RESP 16–22; TEMP 36.7–37.9; O2SAT 96–98
[2018-01-26] MEDS: SODIUM CHLORIDE 0.9% 1,000 ML 150 ML IV ×2 (00:19→07:06)
[2018-01-26 05:47] LABS: Add Manual Diff / Slide Review NO; Basophils Percent Auto 0.4 % (0-2); Eosinophils Percent Auto 1.2 % (2-4); Hematocrit 35.3 % (41-53); Hemoglobin 12.1 g/dL (13.5-17.5); Lymphocytes Percent Auto 21.5 % (25-40); Mean Corpuscular HGB Conc 34.4 % (30-36); Mean Corpuscular Hemoglobin 31.3 PG (26-34); Mean Corpuscular Volume 90.9 fL (80-100); Neutrophils Absolute Auto 6000 /uL (3000-5900); Neutrophils Percent Auto 63.9 % (50-75); Platelet Count 143 X10^3/uL (150-400); Red Blood Cell Count 3.88 X10^6/uL (4.5-5.9); Red Cell Distribution Width 12.5 % (11.6-14.8); White Blood Cell Count 9.4 X10^3/uL (4.5-11.0)
[2018-01-26 05:55] LABS: BUN Creatinine Ratio 12.9 (6-22); Blood Urea Nitrogen 9 mg/dL (9-20); Calcium 8.2 mg/dL (8.4-10.2); Carbon Dioxide 24 mmol/L (22-32); Chloride 107 mmol/L (98-107); Estimated Glomerular Filt Rate > 60.0 mL/min (>60); Glucose 163 mg/dL (80-110); HEMOLYSIS < 15 (0-50); Potassium 3.7 mmol/L (3.4-5.1); Sodium 139 mmol/L (137-145)
[2018-01-26] MEDS: METFORMIN HCL 500 MG TABLET 1000 MG PO (08:54)
[2018-01-26] MEDS: CIPROFLOXACIN 500 MG TABLET PO (08:54)
[2018-01-26] MEDS: TAMSULOSIN 0.4 MG CAPSULE PO (08:54)
--- NOTE | 2018-01-26 12:23 | PM.DS.1 ---
History of Present Illness Chief complaint: Sepsis Narrative: 68-year-old male with a history of type 2 diabetes with recent left urolithiasis status post lithotripsy two weeks ago (01/14/18). Day of admission he developed severe shakes and chills. He also complained of hematuria and intermittent urinary incontinence since the procedure. In the 3-4 days prior to admission he was having worsening urinary incontinence and subjective fevers as well as persistent left flank pain. In the emergency department UA was positive for infection. White blood cell count was elevated as was lactate. Dr. Zhu spoke with Dr. De Dios with Urology who recommended IV antibiotics and leaving his stent in place. There was no indication for surgery so patient was felt safe to stay at [facility]. Discharge Providers Date of admission: 01/24/18 20:03 Primary care physician: Eneida Gross DO Consults: 01/24/18 20:02 Consult to Physician Routine Comment: Consulting Provider: Eneida Gross Reason for consultation: Admission Has provider been notified: Yes Discharge provider: Eneida Gross DO Summary Discharge Diagnosis: Sepsis Pyelonephritis Type 2 diabetes Hospital Course: Sepsis secondary to pyelonephritis: Patient was started on empiric ceftriaxone while awaiting urine culture results. He felt much improved after antibiotics and IV fluid with resolution of fevers. KUB x-ray showed his stent where expected. Urine culture returned with Klebsiella pneumoniae and enterococcus faecalis, both sensitive to ciprofloxacin. He was transitioned to oral antibiotics and discharged home improved. One blood culture returned with Staph which was felt to be a contaminant. Diabetes: Metformin was initially held however restarted as patient improved. Blood sugars were elevated in the hospital which was not surprising given acute illness. Patient is scheduled to follow up with Dr. Gonsales with Urology on 02/03/18. He needs to follow up with Dr. Gross in clinic in two weeks. Exam Vital Signs (past 8 hours): Vital Signs - 8 hr 01/26/18 06:59 01/26/18 07:59 01/26/18 10:35 Temperature 98.8 F 98.1 F Pulse Rate 68 Respiratory Rate 16 Blood Pressure 142/70 H Pulse Oximetry 96 96 Pulse Oximetry 96 Oxygen Delivery Method Room Air Oxygen Flow Rate 0 General: Awake and alert, no acute distress. HEENT: NCAT, EOMI, moist oral mucosa CV: Regular rate and rhythm, no murmurs, rubs or gallops Lungs: CTAB, no wheezes, rales, or rhonchi Abdomen: Soft, nontender; bowel tones active; no hepatosplenomegaly Extremities: Warm, no edema, 2+ pedal pulses bilaterally Objective Imaging Abdominal x-ray: Radiologist's impression: IMPRESSION: Left ureteral stent in place. No visible calcifications along the stent. Dictated by: Efren Hong M.D. on 01/25/2018 at 11:09 Approved by: Efren Hong M.D. on 01/25/2018 at 11:11 Labs Result Diagrams: 01/26/18 05:20 01/26/18 05:20 Labs: Laboratory Results - last 24 hr 01/24/18 01/26/18 01/26/18 18:30 05:20 05:20 WBC 9.4 RBC 3.88 L Hgb 12.1 L Hct 35.3 L MCV 90.9 MCH 31.3 MCHC 34.4 RDW 12.5 Plt Count 143 L Neut % (Auto) 63.9 Lymph % (Auto) 21.5 L [place] % (Auto) 13.0 Eos % (Auto) 1.2 L Baso % (Auto) 0.4 Neut # (Auto) 6000 H Sodium 139 Potassium 3.7 Chloride 107 Carbon Dioxide 24 BUN 9 Creatinine 0.70 Estimated GFR > 60.0 BUN/Creatinine Ratio 12.9 Glucose 163 H Calcium 8.2 L A. baumannii (PCR) Not detected [place] albicans (PCR) Not detected C. glabrata (PCR) Not detected C. krusei (PCR) Not detected C. parapsilosis (PCR) Not detected C. tropicalis (PCR) Not detected Enterobacteriac sp PCR Not detected E. cloacae complex PCR Not detected Enterococcus sp PCR Not detected E. coli (PCR) Not detected H. influenzae (PCR) Not detected Klebsiella oxytoca PCR Not detected Klebsiella pneumoniae Not detected List. monocytogenes PCR Not detected N. meningitidis (PCR) Not detected Proteus species (PCR) Not detected Serratia marcescens PCR Not detected Staphylococcus sp PCR Detected H Staph aureus (PCR) Not detected mecA-Methicil Res Gene Not Reportable Streptococcus sp PCR Not detected Group A Strep (PCR) Not detected Strep agalactiae (PCR) Not detected Strep pneumoniae (PCR) Not detected P. aeruginosa (PCR) Not detected Vito/B-Vanco Res Genes Not Reportable KPC-Carbap Res Gene PCR Not Reportable Discharge Plan Discharge Plan Patient Disposition: Home, Self-Care Discharge Data Primary Care Provider: Eneida Gross Attending Provider: Eneida Gross Admit Date/Time: 01/24/18 20:03 Discharges patient from system. Discharge Date/Time: 01/26/18 12:58 Quality VTE Deep Vein Thrombosis/Pulmonary Embolism Present on Admission: No
== END 2018-01-26 12:58 | disposition home or self-care (01) | DRG 699 ==
LOC: ED 20:02 → AC 21:05
PROVIDERS: Admitting Provider Family Medicine; Emergency Provider Emergency Medicine; Family Provider Family Medicine; PCP Family Medicine; Visit Provider Family Medicine
DX: T83.593A Infection and inflammatory reaction due to other urinary stents, initial encounter (principal); N10 Acute pyelonephritis; N20.0 Calculus of kidney; E11.9 Type 2 diabetes mellitus without complications; Z79.84 Long term (current) use of oral hypoglycemic drugs; R32 Unspecified urinary incontinence; B96.1 Klebsiella pneumoniae [K. pneumoniae] as the cause of diseases classified elsewhere; B95.2 Enterococcus as the cause of diseases classified elsewhere
CPT/HCPCS: 36415; 74018; 80048; 80053; 81001; 82962; 83605; 83690; 85025; 86850; 86900; 86901; 87040; 87077; 87086; 87150; 87186; 87205; 96360; 99223; 99232; 99238; 99283; 99284; J0696

== ENCOUNTER 2018-06-21 09:28 | Emergency (ER) | payer MEDICARE, SELFPAY ==
[2018-06-21] VITALS (12 sets, daily range): BP systolic 110–164; BP diastolic 66–105; PULSE 59–114; RESP 14–22; TEMP 36.6; O2SAT 95–99
--- NOTE | 2018-06-21 09:45 | DI.RAD.S_ITS ---
PROCEDURE: XR CHEST 1V INDICATIONS: chest pain TECHNIQUE: One view of the chest was acquired. COMPARISON: None. FINDINGS: Surgical changes and devices: None. Lungs and pleura: No pleural effusions or pneumothorax. Lungs are clear. Mediastinum: Mediastinal contours appear normal. Heart size is normal. Bones and chest wall: No suspicious bony lesions. Overlying soft tissues appear unremarkable. IMPRESSION: 1. No acute cardiopulmonary disease. Dictated by: Caesar Curtis M.D. on 06/21/2018 at 10:09 Approved by: Caesar Curtis M.D. on 06/21/2018 at 10:13
--- NOTE | 2018-06-21 09:47 | ED.CHESTPAIN ---
HPI - Chest Pain General Chief Complaint: Chest Pain Stated Complaint: chest pain shoulder pain Time Seen by Provider: 06/21/18 09:30 Source: patient Mode of arrival: ambulatory Limitations: no limitations History of Present Illness HPI narrative: 68-year-old nonsmoking male presents from the walk-in clinic for evaluation of retrosternal chest pressure with radiation to his back for the past 4 days. He states it was gradual in onset and seems to be worse in the late afternoon or evening. He denies any provocation or palliation. He denies associated symptoms such as dizziness, weakness or lightheadedness. He denies any shortness of breath nor nausea, vomiting or diaphoresis. He denies any history of blood clots or known cancer. He did travel to [facility] in April. He had a rather significant episode of chest pain about 10 years ago for which he had a very thorough evaluation of Brenda elise including a heart catheterization which was normal. He occasionally has hypertension but takes no medications for it. He is a type 2 diabetic. He was seen and evaluated at the walk-in clinic and sent here for a more thorough evaluation. he was given a full-dose aspirin prior to arrival MD complaint: chest pain Onset (ago): day(s) Duration: constant Onset: during rest Pain location: substernal Severity: moderate Quality: aching and heaviness Pain radiation: back Relieving factors: nothing Exacerbating factors: nothing Treatments prior to arrival chest pain: aspirin Related Data Home Medications Medication Instructions Recorded Confirmed aspirin 81 mg PO QDAY #0 05/25/17 06/21/18 Vitamin D3 1 tab PO DAILY #0 09/09/17 06/21/18 multivitamin capsule 1 cap PO DAILY 12/30/17 06/21/18 red yeast rice 600 mg capsule 600 mg PO BID 12/30/17 06/21/18 loratadine 10 mg tablet 10 mg PO DAILY PRN 02/10/18 06/21/18 niacin 500 mg tablet 250 mg PO DAILY 02/10/18 06/21/18 Previous Rx's Medication Instructions Recorded metformin 1,000 mg PO BID #180 mg 05/25/18 Allergies Allergy/AdvReac Type Severity Reaction Status Date / Time naproxen [From NAPROSYN] Allergy Unknown stomach Verified 06/21/18 08:55 pain Review of Systems Review of Systems All systems reviewed & are unremarkable except as noted in HPI and below Constitutional Denies chills, Denies fever(s), Denies lethargy and Denies weakness Eyes Denies change in vision, Denies eye discharge, Denies irritation and Denies loss of vision ENT Ears, Nose, Mouth, and Throat: Denies change in voice, Denies neck pain and Denies sore throat Cardiovascular Reports chest pain, Denies irregular heart rhythm, Denies lightheadedness, Denies palpitations, Denies dyspnea, Denies dyspnea on exertion and Denies orthopnea Respiratory Denies cough, Denies dyspnea, Denies dyspnea on exertion and Denies wheezing Gastrointestinal Gastrointestinal: Denies abdominal pain, Denies change in bowel habits, Denies diarrhea, Denies nausea and Denies vomiting Genitourinary Denies hematuria, Denies flank pain, Denies urinary incontinence and Denies urinary urgency Musculoskeletal Denies neck pain Integumentary/Breasts Denies pruritus, Denies erythema, Denies rash and Denies wounds Neurologic Denies confusion, Denies loss of vision and Denies weakness Psychiatric Denies anxiety, Denies confusion, Denies depression, Denies homicidal ideation and Denies suicidal ideation Endocrine Denies palpitations Hematologic/Lymphatic Denies easy bruising Allergic/Immunologic Denies wheezing [facility] Medical History Nephrolithiasis (Resolved) Multiple actinic keratoses (09/09/17) Rosacea (09/09/17) Type 2 diabetes mellitus without complication, without long-term current use of insulin (09/09/17) Asthma (Chronic) Diabetes mellitus (Chronic) Hearing loss (Chronic ~2016) Vision disorder (Chronic) Surgical History Anesthesia (Resolved) Ganglion cyst (Resolved) Status post knee surgery Family History Father Heart disease Diabetes mellitus Mother Age: 89 Cancer Hypertension Social History household members: spouse Smoking Status: Never smoker Exam Narrative Exam Narrative: 68-year-old male resting comfortably Initial Vital Signs Initial Vital Signs: Vital Signs Temperature 98 F 06/21/18 09:30 Pulse Rate 82 06/21/18 09:30 Respiratory Rate 18 06/21/18 09:30 Blood Pressure 164/93 H 06/21/18 09:30 Pulse Oximetry 98 06/21/18 09:30 Const General: cooperative and well developed Nutritional Appearance: well nourished Orientation: alert, awake, oriented x3 and not confused [facility] Head: normocephalic and atraumatic Ears: external ears normal and TM's normal bilaterally Nose: external nose normal and No nasal discharge Face and sinus: sinuses nontender, face symmetric, no sinus tenderness and No dry mucous membranes Mouth: oral mucosae normal and moist mucous membranes Teeth and gingiva: dentition normal Throat: tonsils normal and uvula midline Eyes General: appearance normal, both eyes and all related structures Eyelids: eyelids normal Conjunctivae: conjunctivae normal Sclera: sclerae normal Pupils: PERRL EOM: EOM intact bilaterally Chest Chest: normal inspection of the chest Resp Effort & Inspection: normal respiratory effort, able to speak in complete sentences, no respiratory distress and no use of accessory muscles Auscultation: clear to auscultation bilaterally, no rales, no rhonchi and no wheezes Cardio Rate: regular rate Rhythm: regular rhythm Heart Sounds: no click, no gallops, no murmurs and no rubs Pulses: normal peripheral pulses Back/Spine/Pelvis Back: No CVA tenderness Cervical Spine: cervical ROM normal and No pain with cervical ROM Thoracic/Lumbar Spine: thoracic and lumbar spine normal to inspection Skin General: no rashes or lesions noted, No jaundice and No petechiae Neuro General: alert, oriented x3, gait normal and no focal motor deficits Speech: speech normal Psych Appearance: well kempt Mental Status: mental status grossly normal Attitude: cooperative Thought Content: normal and suicidality Judgment: judgment good Course Orders Ordered: ED Orders 06/21/18 09:40 B Type Natriuretic Peptide Stat Complete Blood Count AUTO DIFF Stat Comprehensive Metabolic Panel Stat Lipase Stat Troponin & CK Cardiac Panel Stat 06/21/18 09:45 XR chest 1V Stat EKG-12 Lead Stat 06/21/18 10:34 CT angio chest abdomen Stat Sodium Chloride (Normal Saline 0.9%) 1,000 mls @ 150 mls/hr IV CONT ALLA Last Infusion: 06/21/18 13:02 Dose: 150 mls/hr Admin: 06/21/18 09:54 Dose: 150 mls/hr Heparin Sodium/Dextrose (Heparin Drip) 25,000 unit in 500 mls @ 19.813 mls/hr IV CONT ALLA; Protocol Last Infusion: 06/21/18 13:02 Dose: 12 units/kg/hr, 19.813 mls/hr Admin: 06/21/18 11:04 Dose: 12 units/kg/hr, 19.813 mls/hr Discontinued Medications Heparin Sodium (Porcine) (Heparin) 5,800 unit 70 unit/kg (5800 unit) IV NOW ONE Stop: 06/21/18 10:48 Last Admin: 06/21/18 10:52 Dose: 5,800 unit Metoprolol Tartrate (Lopressor) 5 mg IV NOW ONE Stop: 06/21/18 09:46 Last Admin: 06/21/18 10:52 Dose: 5 mg Nitroglycerin (Nitrostat) 0.4 mg SL [id number] PRN PRN Reason: Chest Pain Last Admin: 06/21/18 10:11 Dose: 0.4 mg Admin: 06/21/18 10:05 Dose: 0.4 mg Admin: 06/21/18 09:54 Dose: 0.4 mg Nitroglycerin (Nitro-Bid) 1 inch TOP NOW ONE Stop: 06/21/18 11:43 Last Admin: 06/21/18 11:40 Dose: 1 inch Reevaluation(s) Reevaluation #1: patient has some improvement after NG, from 4 to 3 to 2 to 1. No other symptoms. Patient has no provocation/pallation, CTA ordered. Radiologist sees no dissection or PE. Consultations Consultation #1: call to PCP office and for old EKGs, no luck on old EKGS Time: 09:52 Consultation #2: Call to [facility] cardio, whom suggests we are likely at the end of the infarct and recommends transfer with admission to hospitalist. Hospitalist is happy to accept Time: 11:16 Vital Signs - 8 hr 06/21/18 09:30 06/21/18 09:47 06/21/18 09:54 Temperature 98 F Pulse Rate 82 80 82 Respiratory Rate 18 14 Blood Pressure 164/93 H 153/105 H Blood Pressure [Left Arm] 153/105 H Pulse Oximetry 98 97 06/21/18 10:05 06/21/18 10:11 06/21/18 10:12 Temperature Pulse Rate 114 H 106 H 104 H Respiratory Rate Blood Pressure 117/84 129/80 110/79 Blood Pressure [Left Arm] Pulse Oximetry 06/21/18 10:45 06/21/18 11:02 06/21/18 11:08 Temperature Pulse Rate 87 59 L 63 Respiratory Rate 22 16 15 Blood Pressure Blood Pressure [Left Arm] 127/77 124/66 124/66 Pulse Oximetry 98 98 99 06/21/18 11:30 06/21/18 11:40 06/21/18 12:30 Temperature Pulse Rate 62 66 65 Respiratory Rate 20 15 Blood Pressure 128/66 Blood Pressure [Left Arm] 128/66 129/67 Pulse Oximetry 99 95 MDM - Chest Pain Medical Records Data Attestation: I reviewed the patient's medical records. Lab Data Attestation: I reviewed the patient's lab results. Result diagrams: 06/21/18 09:40 06/21/18 09:40 Lab Results 06/21/18 06/21/18 06/21/18 Range/Units 09:40 09:40 09:40 WBC 9.5 (4.5-11.0) X10^3/uL RBC 5.15 (4.5-5.9) X10^6/uL Hgb 16.1 (13.5-17.5) g/dL Hct 45.9 (41-53) % MCV 89.2 (80-100) fL MCH 31.3 (26-34) PG MCHC 35.1 (30-36) % RDW 13.2 (11.6-14.8) % Plt Count 160 (150-400) X10^3/uL Neut % (Auto) 61.0 (50-75) % Lymph % (Auto) 30.0 (25-40) % [place] % (Auto) 7.6 (3-14) % Eos % (Auto) 0.7 L (2-4) % Baso % (Auto) 0.7 (0-2) % Neut # (Auto) 5800 (3253-9534) /uL Sodium 142 (137-145) mmol/L Potassium 4.6 (3.4-5.1) mmol/L Chloride 103 (98-107) mmol/L Carbon Dioxide 26 (22-32) mmol/L BUN 12 (9-20) mg/dL Creatinine 0.90 (0.66-1.25) mg/dL Estimated GFR > 60.0 (>60) mL/min BUN/Creatinine Ratio 13.3 (6-22) Glucose 170 H (80-110) mg/dL Calcium 9.5 (8.4-10.2) mg/dL Total Bilirubin 0.6 (0.2-1.3) mg/dL AST 125 H (17-59) IU/L ALT 89 H (21-72) IU/L Alkaline Phosphatase 60 (38-126) U/L Total Creatine Kinase 608 H (55-170) U/L CK-MB (CK-2) 39.20 H (<2.37) ng/mL CK-MB (CK-2) Rel Index 6.4 H* (1.5-5.0) % Troponin I 10.400 H* (0.01-0.034) ng/mL B-Natriuretic Peptide < 100.0 (<100) Total Protein 7.4 (6.3-8.2) g/dL Albumin 4.7 (3.5-5.0) g/dL Globulin 2.7 (1.7-4.1) g/dL Albumin/Globulin Ratio 1.7 (1.0-2.8) Lipase 104 (23-300) U/L ECG Data Attestation: I personally reviewed and interpreted this ECG as follows: Prior ECG tracings: not available for review Interpretation: left bundle branch block, rate 89. No ectopy. None of Sgarbossa's criteria present MDM Narrative Medical decision making narrative: patient had persistent pain for 4 days, without provocation or palliation, nor any other classic cardiac symptoms. HTN on arrival and possibility of dissection considered. EKG notes LBBB, but no old tracings to compare it to. Cardiology suggests atypical presentation likely secondary to being at the end of the infarction. They recommend nitro paste and transfer to hospitalist Critical Care Time Critical Care Time: Yes Total Critical Care Time: 30 Attestation: The high probability of a clinically significant, sudden or life threatening deterioration of the [cardiovascular] system(s) required my full and direct attention, intervention and personal management. The aggregate critical care time was [30] minutes. This time is in addition to time spent performing reported procedures but includes the following: [x] Data Review and interpretation [x] Patient assessment and monitoring of vital signs [x] Documentation [x] Medication orders and management Discharge Plan Departure Patient Disposition: [facility] Clinical Impression: Acute non-ST elevation myocardial infarction (NSTEMI) Prescriptions: No Action aspirin 81 MG tablet,delayed release (DR/EC) 81 mg PO QDAY Qty: 0 RF: 0 Vitamin D3 1 tab PO DAILY Qty: 0 RF: 0 metformin 1,000 mg tablet 1,000 mg PO BID Qty: 180 RF: 0 multivitamin capsule 1 cap PO DAILY RF: 0 red yeast rice 600 mg capsule 600 mg PO BID RF: 0 niacin 500 mg tablet 250 mg PO DAILY RF: 0 loratadine [Allergy Relief (loratadine)] 10 mg tablet 10 mg PO DAILY PRN (Reason: Allergy Symptoms) RF: 0
[2018-06-21 09:53] LABS: Add Manual Diff / Slide Review NO; Basophils Percent Auto 0.7 % (0-2); Eosinophils Percent Auto 0.7 % (2-4); Hematocrit 45.9 % (41-53); Hemoglobin 16.1 g/dL (13.5-17.5); Mean Corpuscular HGB Conc 35.1 % (30-36); Mean Corpuscular Hemoglobin 31.3 PG (26-34); Mean Corpuscular Volume 89.2 fL (80-100); Monocytes Percent Auto 7.6 % (3-14); Neutrophils Absolute Auto 5800 /uL (3000-5900); Platelet Count 160 X10^3/uL (150-400); Red Blood Cell Count 5.15 X10^6/uL (4.5-5.9); Red Cell Distribution Width 13.2 % (11.6-14.8); White Blood Cell Count 9.5 X10^3/uL (4.5-11.0)
[2018-06-21] MEDS: SODIUM CHLORIDE 0.9% 1,000 ML 150 ML IV (09:54)
[2018-06-21] MEDS: NITROGLYCERIN 0.4 MG SL TAB SL ×3 (09:54→10:11)
[2018-06-21 10:10] LABS: Alanine Aminotransferase 89 IU/L (21-72); Albumin 4.7 g/dL (3.5-5.0); Albumin Globulin Ratio 1.7 (1.0-2.8); Alkaline Phosphatase 60 U/L (38-126); Aspartate Aminotransferase 125 IU/L (17-59); BUN Creatinine Ratio 13.3 (6-22); Bilirubin Total 0.6 mg/dL (0.2-1.3); Blood Urea Nitrogen 12 mg/dL (9-20); Calcium 9.5 mg/dL (8.4-10.2); Carbon Dioxide 26 mmol/L (22-32); Chloride 103 mmol/L (98-107); Creatine Kinase 608 U/L (55-170); Estimated Glomerular Filt Rate > 60.0 mL/min (>60); Globulin 2.7 g/dL (1.7-4.1); Glucose 170 mg/dL (80-110); HEMOLYSIS 30 (0-50); Lipase 104 U/L (23-300); Potassium 4.6 mmol/L (3.4-5.1); Sodium 142 mmol/L (137-145); Total Protein 7.4 g/dL (6.3-8.2)
--- NOTE | 2018-06-21 10:15 | PC.NURSE ---
patient reports improvment after each nitro. Pain focal to one small spot on left side of chest. Minimal discomfort in left shoulder 08/26.
--- NOTE | 2018-06-21 10:34 | DI.CT.S_ITS ---
PROCEDURE: CT ANGIO CHEST ABDOMEN INDICATIONS: severe chest pain, radiation to back, HTN TECHNIQUE: Precontrast 5 mm thick sections acquired from the lung apices to the iliac crests. After the administration of intravenous contrast, 2.5 mm thick sections again acquired from the lung apices to the iliac crests. 10 mm maximum intensity projection (MIP) oblique sagittal and coronal reformats were then acquired. For radiation dose reduction, the following was used: automated exposure control. COMPARISON: [facility], CT, CT ABDOMEN PELVIS W CON, 12/22/2017, 13:39. [facility], CR, XR CHEST 1V, 06/21/2018, 9:59. FINDINGS: Image quality: Excellent. AORTA: The aorta is normal in caliber and contour. Noncontrast images demonstrate no evidence of intramural hematoma. Postcontrast images demonstrate no intimal flaps to suggest aortic dissection. There is conventional branching of the aortic arch. The visualized great vessels are normal in caliber and appear patent. CHEST: Lungs and pleura: There is minimal dependent atelectasis. No pleural effusions or pneumothorax. Central and peripheral airways are patent and normal in caliber. Mediastinum: Heart size is normal. No pericardial effusion. No mediastinal or hilar adenopathy by size criteria. Central pulmonary arteries are normal in size and appear patent. Esophagus is normal in caliber. No hiatal hernias. Bones and chest wall: No axillary adenopathy by size criteria. Thyroid gland demonstrates no discrete nodules. No suspicious bony lesions. No vertebral body compression fractures. ABDOMEN: Vasculature: Celiac trunk and mesenteric arteries are patent. Renal arteries are also patent. Solid organs: Liver demonstrates hypoattenuation with mild focal sparing along the gallbladder fossa. Gallbladder appears within normal limits. Biliary system is non dilated. Pancreas enhances normally. Spleen is normal in size and enhancement. No adrenal nodules. Both kidneys are normal in size and enhancement, without hydronephrosis. Peritoneum and bowel: No free fluid or air. Visualized loops are normal in caliber and wall thickness. Nodes and vessels: No retroperitoneal or mesenteric adenopathy by size criteria. Inferior vena cava is normal in morphology. Bones: No suspicious bony lesions. No vertebral body compression fractures. Miscellaneous: No ventral hernias. IMPRESSION: 1. No evidence of aortic dissection. No central pulmonary embolism. 2. Mild hepatic steatosis. Dictated by: Caesar Curtis M.D. on 06/21/2018 at 10:58 Approved by: Caesar Curtis M.D. on 06/21/2018 at 11:22
[2018-06-21 10:47] LABS: CKMB % Relative Index 6.4 % (1.5-5.0)
[2018-06-21] MEDS: HEPARIN 5,000 UNIT/ML VIAL 5800 UNIT IV (10:52)
[2018-06-21] MEDS: METOPROLOL TARTRATE 5 MG/5 ML INJ IV (10:52)
[2018-06-21 11:04] LABS: B Type Natriuretic Peptide < 100.0 (<100)
[2018-06-21] MEDS: HEPARIN DRIP 25,000 UNIT/500 ML IV.SOLN 19.813 UNIT IV (11:04)
[2018-06-21] MEDS: NITROGLYCERIN OINT 1 INCH/GM OINT...G. TOP (11:40)
== END 2018-06-21 13:00 | disposition short-term general hospital (02) ==
PROVIDERS: Emergency Provider Emergency Medicine; Family Provider Family Medicine; PCP Family Medicine
DX: I21.4 Non-ST elevation (NSTEMI) myocardial infarction (principal)
CPT/HCPCS: 36415; 36591; 71045; 71275; 74175; 80053; 82550; 82553; 83690; 83880; 84484; 85025; 93005; 96361; 96365; 96366; 96375; 99284; 99285; J1644; Q9967

== ENCOUNTER → 2018-07-02 11:32 | Outpatient (CLI) | payer MEDICARE, SELFPAY ==
[2018-07-02 11:55] LABS: Add Manual Diff / Slide Review NO; Basophils Percent Auto 0.7 % (0-2); Eosinophils Percent Auto 1.4 % (2-4); Hematocrit 44.2 % (41-53); Hemoglobin 15.6 g/dL (13.5-17.5); Lymphocytes Percent Auto 33.5 % (25-40); Mean Corpuscular HGB Conc 35.4 % (30-36); Mean Corpuscular Hemoglobin 31.3 PG (26-34); Mean Corpuscular Volume 88.6 fL (80-100); Monocytes Percent Auto 8.6 % (3-14); Neutrophils Absolute Auto 4100 /uL (3000-5900); Neutrophils Percent Auto 55.8 % (50-75); Platelet Count 203 X10^3/uL (150-400); Red Blood Cell Count 4.99 X10^6/uL (4.5-5.9); Red Cell Distribution Width 13.2 % (11.6-14.8); White Blood Cell Count 7.3 X10^3/uL (4.5-11.0)
[2018-07-02 12:04] LABS: Alanine Aminotransferase 62 IU/L (21-72); Albumin 4.7 g/dL (3.5-5.0); Albumin Globulin Ratio 1.8 (1.0-2.8); Alkaline Phosphatase 55 U/L (38-126); Aspartate Aminotransferase 44 IU/L (17-59); Bilirubin Total 0.5 mg/dL (0.2-1.3); Blood Urea Nitrogen 18 mg/dL (9-20); Calcium 9.7 mg/dL (8.4-10.2); Carbon Dioxide 26 mmol/L (22-32); Chloride 98 mmol/L (98-107); Estimated Glomerular Filt Rate > 60.0 mL/min (>60); Globulin 2.6 g/dL (1.7-4.1); Glucose 219 mg/dL (80-110); HEMOLYSIS < 15 (0-50); Potassium 4.3 mmol/L (3.4-5.1); Sodium 138 mmol/L (137-145); Total Protein 7.3 g/dL (6.3-8.2)
[2018-07-02 12:05] LABS: Hemoglobin A1C% w Est Avg Glu 7.8 % (4.0-6.0)
[2018-07-02 12:34] LABS: TSH w/ Reflex to FT4 0.71 uIU/mL (0.47-4.68)
== END ==
PROVIDERS: PCP Family Medicine; Visit Provider Family Medicine
DX: R74.0 Nonspecific elevation of levels of transaminase and lactic acid dehydrogenase [LDH] (principal); E11.9 Type 2 diabetes mellitus without complications; I21.4 Non-ST elevation (NSTEMI) myocardial infarction
CPT/HCPCS: 36415; 80053; 83036; 84443; 85025

== ENCOUNTER → 2018-09-24 08:12 | Outpatient (CLI) | payer MEDICARE, SELFPAY ==
[2018-09-24 09:44] LABS: Hemoglobin A1C% w Est Avg Glu 6.9 % (4.0-6.0)
[2018-09-24 09:51] LABS: Alanine Aminotransferase 44 IU/L (21-72); Albumin 4.7 g/dL (3.5-5.0); Albumin Globulin Ratio 1.8 (1.0-2.8); Alkaline Phosphatase 46 U/L (38-126); Aspartate Aminotransferase 28 IU/L (17-59); Bilirubin Total 0.6 mg/dL (0.2-1.3); Blood Urea Nitrogen 18 mg/dL (9-20); Calcium 9.7 mg/dL (8.4-10.2); Carbon Dioxide 28 mmol/L (22-32); Chloride 100 mmol/L (98-107); Cholesterol 144 mg/dL (140-199); Estimated Glomerular Filt Rate > 60.0 mL/min (>60); Globulin 2.6 g/dL (1.7-4.1); Glucose 155 mg/dL (80-110); HDL Cholesterol 47 mg/dL (40-60); HEMOLYSIS < 15 (0-50); LDL Cholesterol Calculated 73 mg/dL (<100); Potassium 4.9 mmol/L (3.4-5.1); Sodium 138 mmol/L (137-145); Total Protein 7.3 g/dL (6.3-8.2); Triglycerides 122 mg/dL (35-150)
[2018-09-24 10:01] LABS: Creatinine Urine Random 94.8 mg/dL
[2018-09-24 10:05] LABS: Microalbumi Creatinin Ratio Ur 9.4 ug/mg CR (<30); Microalbumin Urine Random 0.9 mg/dL (0-1.6)
== END ==
PROVIDERS: Family Provider Family Medicine; PCP Family Medicine; Visit Provider Nurse Practitioner
DX: E78.5 Hyperlipidemia, unspecified (principal); I25.10 Atherosclerotic heart disease of native coronary artery without angina pectoris; I10 Essential (primary) hypertension; E11.65 Type 2 diabetes mellitus with hyperglycemia
CPT/HCPCS: 36415; 80053; 80061; 82043; 82570; 83036

== ENCOUNTER 2019-01-24 11:30 | Outpatient (RCR) | payer MEDICARE, SELFPAY | END 2019-01-31 11:06 | LOC: CAR 11:30 | PROVIDERS: Family Provider Family Medicine; PCP Family Medicine; Visit Provider Family Medicine | DX: I25.2 Old myocardial infarction (principal); I21.3 ST elevation (STEMI) myocardial infarction of unspecified site | CPT/HCPCS: 93798 ==

== ENCOUNTER → 2019-01-26 08:01 | Outpatient (CLI) | payer MEDICARE, SELFPAY ==
--- NOTE | 2019-01-26 09:00 | DI.ECHO.S_ITS ---
Echocardiogram Report + + :Name: EDELMIRA MARTIN Study Date: 01/26/2019 Height: 68 in : :[facility] Exam Location: IS Weight: 179 lb : : Gender: Male BSA: 1.9 m2 : :: 1950 Age: 69 yrs BP: 116/80 mmHg: :Reason For Study: NONSTEMI : :Ordering Physician: Tyrese : :Cash Performed By: Kasie Page : + + Interpretation Summary The left ventricle is normal in size, wall thickness, and systolic function with the ejection fraction estimated to be 55-60% without any focal wall motion abnormalities although there is a mild dyssynchronous contraction pattern but this is less prominent compared to the previous study and overall contractility appears to be slightly more vigorous. Diastolic parameters suggest probable normal left ventricular diastolic function and normal filling pressures and is likely improved compared to the previous study. The right ventricle is normal in size and function and appears unchanged compared to the previous study. Pulmonary artery pressures cannot be estimated because of the lack of a measurable TR jet velocity but the IVC suggests a CVP of around 3 mmHg. The left atrium is mildly dilated and right atrial size is normal although both atria have mildly increased in size since the prior echo exam. There is mild mitral regurgitation that is slightly more prominent compared to the previous study but there is no other significant valvular heart disease. The ascending aorta is at the upper limits of normal in size but is unchanged compared to the previous study. Procedure: A two-dimensional transthoracic echocardiogram with color flow and Doppler was performed. The study quality was technically adequate. Comparison is made with the echocardiogram of 06/21/2018. The heart rate ranged between 55-61 bpm during the study. Left Ventricle: The left ventricle is normal in size, wall thickness, and systolic function without any focal wall motion abnormalities. There is no echo evidence for significant left ventricular outflow tract obstruction. The LVOT velocity is 1.3 m/s. The ejection fraction is estimated to be 55-60%. There is a mild dyssynchronous contraction pattern but this is less prominent compared to the previous study and overall contractility appears to be slightly more vigorous. Diastolic parameters suggest probable normal left ventricular diastolic function and normal filling pressures. This is improved compared to the previous study. Right Ventricle: The right ventricle is normal in size and function. This is unchanged compared to the previous study. Atria: The left atrium is mildly dilated. Both atria have mildly increased in size since the prior echo exam. Right atrial size is normal. There is no Doppler evidence for an interatrial shunt. Mitral Valve: There is mild mitral annular calcification. The mitral valve leaflets appear mildly thickened, but open well. There is systolic anterior motion of the chordal apparatus. There is mild mitral regurgitation. This is slightly more prominent compared to the previous study. Aortic Valve: The aortic valve is trileaflet. The aortic valve is slightly calcified. The aortic valve opens well. No aortic regurgitation is present. Tricuspid Valve: The tricuspid valve is normal in structure and function. There is trace tricuspid regurgitation. This is unchanged compared to the previous study. Pulmonary artery pressures cannot be estimated because of the lack of a measurable TR jet velocity but the IVC suggests a CVP of around 3 mmHg. Pulmonic Valve: The pulmonic valve is not well seen, but is grossly normal. There is a trace or physiologic amount of pulmonic regurgitation. There is no other significant valvular heart disease. Great Vessels: The aortic root is normal size. The ascending aorta is at the upper limits of normal in size. This is unchanged compared to the previous study. The pulmonary artery is not well visualized, but is probably normal size. The IVC is of normal diameter and collapses greater than 50% with a sniff. This suggests a low right atrial pressure of 3 mm Hg. Pericardium/ Pleura There is no pericardial effusion. There is no pleural effusion. MMode/2D Measurements & Calculations LVIDd: 3.9 cm LVOT diam: 1.9 cm LVIDs: 2.9 cm Ao root diam: 3.8 cm FS: 26.5 % asc Aorta Diam: 3.3 cm EPSS: 0.00 cm IVSd: 0.86 cm LVPWd: 0.80 cm LV farias. diameter/BSA (cm/m^2): 2.0 LV sys. diameter/BSA (cm/m^2): 1.5 LA A2 area: 24.5 cm2 RA long axis: 4.9 cm LA A4 area: 21.6 cm2 RA area: 14.9 cm2 LA length (vol): 5.6 cm RA vol: 38.5 ml LA vol: 80.2 ml RA : 19.7 ml/m2 LA vol index: 41.1 ml/m2 IVC diam: 1.4 cm RVD1 (basal): 4.1 cm RVD2 (mid): 3.7 cm TAPSE: 1.8 cm Doppler Measurements & Calculations Ao V2 max: 131.6 cm/sec LVOT Max Howard: 132.6 cm/sec Ao V2 mean: 102.7 cm/sec LV V1 max P.0 mmHg Ao max P.9 mmHg LV V1 VTI: 29.6 cm Ao mean P.5 mmHg SEAN(I,D): 3.2 cm2 Ao V2 VTI: 26.8 cm SEAN(V,D): 2.9 cm2 sev ratio: 1.1 SEAN indexed to BSA (cm^2/m^2): 1.6 MV E max howard: 84.7 cm/sec TR max howard: 219.5 cm/sec MV A max howard: 68.9 cm/sec TR max P.3 mmHg MV E/A: 1.2 PA V2 max: 83.7 cm/sec Med Peak E' Howard: 6.6 cm/sec PA V2 mean: 58.6 cm/sec E/E' med: 12.8 PA mean P.5 mmHg Lat Peak E' Howard: 11.9 cm/sec PA Accel Time: 0.10 sec E/E' lat: 7.1 E/e' average: 10.0 MV dec time: 0.21 sec MV P1/2t: 58.7 msec MV P1/2t max howard: 84.7 cm/sec SV(LVOT): 84.8 ml MVA(P1/2t): 3.7 cm2 _ Reading Physician:ARTHUR
[2019-01-26 09:55] LABS: Hemoglobin A1C% w Est Avg Glu 6.1 % (4.0-6.0)
[2019-01-26 10:13] LABS: Alanine Aminotransferase 31 IU/L (21-72); Albumin 4.3 g/dL (3.5-5.0); Albumin Globulin Ratio 1.7 (1.0-2.8); Alkaline Phosphatase 41 U/L (38-126); Aspartate Aminotransferase 25 IU/L (17-59); BUN Creatinine Ratio 17.8 (6-22); Bilirubin Total 0.6 mg/dL (0.2-1.3); Blood Urea Nitrogen 16 mg/dL (9-20); Calcium 9.3 mg/dL (8.4-10.2); Carbon Dioxide 28 mmol/L (22-32); Chloride 102 mmol/L (98-107); Estimated Glomerular Filt Rate > 60.0 mL/min (>60); Globulin 2.5 g/dL (1.7-4.1); Glucose 120 mg/dL (80-110); HEMOLYSIS < 15 (0-50); Potassium 4.5 mmol/L (3.4-5.1); Sodium 140 mmol/L (137-145); Total Protein 6.8 g/dL (6.3-8.2)
[2019-01-28 08:55] LABS: Lipoprofile NMR SEE SEPARATE REPORTS
== END ==
PROVIDERS: PCP Family Medicine; Visit Provider Specialist
DX: I21.4 Non-ST elevation (NSTEMI) myocardial infarction (principal); I34.0 Nonrheumatic mitral (valve) insufficiency; E11.9 Type 2 diabetes mellitus without complications; E78.5 Hyperlipidemia, unspecified
CPT/HCPCS: 36415; 80053; 83036; 83695; 83704; 93306

== ENCOUNTER → 2019-07-23 07:42 | Outpatient (CLI) | payer MEDICARE, SELFPAY ==
[2019-07-23 09:01] LABS: Blood Urea Nitrogen 21 mg/dL (9-20); Calcium 9.5 mg/dL (8.4-10.2); Carbon Dioxide 28 mmol/L (22-32); Chloride 102 mmol/L (98-107); Estimated Glomerular Filt Rate > 60.0 mL/min (>60); Glucose 139 mg/dL (80-110); HEMOLYSIS < 15 (0-50); Potassium 4.5 mmol/L (3.4-5.1); Sodium 139 mmol/L (137-145)
[2019-07-23 09:03] LABS: Hemoglobin A1C% w Est Avg Glu 6.2 % (4.0-6.0)
== END ==
PROVIDERS: Family Provider Specialist; PCP Family Medicine; Visit Provider Family Medicine
DX: E11.9 Type 2 diabetes mellitus without complications (principal)
CPT/HCPCS: 36415; 80048; 83036

== ENCOUNTER → 2020-10-02 08:00 | Outpatient (CLI) | payer MEDICARE, SELFPAY ==
[2019-08-29 09:33] VITALS: BMI 26.4
[2020-10-02 09:08] LABS: Hemoglobin A1C% w Est Avg Glu 7.4 % (4.0-6.0)
[2020-10-02 09:31] LABS: Alanine Aminotransferase 27 IU/L (<50); Albumin 4.5 g/dL (3.5-5.0); Albumin Globulin Ratio 1.8 (1.0-2.8); Alkaline Phosphatase 44 U/L (38-126); Aspartate Aminotransferase 27 IU/L (17-59); BUN Creatinine Ratio 19.1 (6-22); Bilirubin Total 0.5 mg/dL (0.2-1.3); Blood Urea Nitrogen 18 mg/dL (9-20); Calcium 9.5 mg/dL (8.4-10.2); Carbon Dioxide 30 mmol/L (22-32); Chloride 104 mmol/L (98-107); Estimated Glomerular Filt Rate > 60.0 mL/min (>60); Globulin 2.5 g/dL (1.7-4.1); Glucose 141 mg/dL (80-110); HEMOLYSIS < 15 (0-50); Potassium 4.7 mmol/L (3.4-5.1); Sodium 139 mmol/L (137-145)
[2020-10-02 09:37] LABS: Microalbumin Urine Random < 0.6 mg/dL (0-1.6)
[2020-10-16 14:28] LABS: LDL Particle SEE SEPARATE RESULTS
== END ==
PROVIDERS: Family Provider Specialist; PCP Family Medicine; Visit Provider Specialist
DX: E78.5 Hyperlipidemia, unspecified (principal); E11.9 Type 2 diabetes mellitus without complications; I10 Essential (primary) hypertension
CPT/HCPCS: 36415; 80053; 80061; 82043; 82570; 83036; 83704

== ENCOUNTER 2021-02-10 23:40 | Emergency (ER) | payer MEDICARE, SELFPAY ==
[2019-08-29 09:33] VITALS: BMI 26.4
[2021-02-10 23:40] VITALS: BP 130/94; PULSE 63; RESP 21; O2SAT 98; BMI 26.6
--- NOTE | 2021-02-10 23:48 | DI.RAD.S_ITS ---
PROCEDURE: XR CHEST 1V INDICATIONS: chest pain TECHNIQUE: One view of the chest was acquired. COMPARISON: [facility], CR, XR CHEST 1V, 06/21/2018, 9:59. FINDINGS: Surgical changes and devices: None. Lungs and pleura: Lungs are clear. No pleural effusions or pneumothorax. Mediastinum: Mediastinal contours appear normal. Heart size is normal. Bones and chest wall: No suspicious bony lesions. Overlying soft tissues appear unremarkable. IMPRESSION: No acute cardiopulmonary disease process. Dictated by: Sarahy Hobbs MD, PhD on 02/11/2021 at 8:11 Approved by: Sarahy Hobbs MD, PhD on 02/11/2021 at 8:11
[2021-02-10] MEDS: ASPIRIN 81 MG CHEW TAB 324 MG PO (23:52)
[2021-02-11] VITALS (11 sets, daily range): BP systolic 106–135; BP diastolic 56–69; PULSE 54–74; RESP 11–23; O2SAT 94–97
[2021-02-11 00:08] LABS: Add Manual Diff / Slide Review NO; Basophils Absolute Auto 100 /uL (0-100); Basophils Percent Auto 0.9 % (0-2); Eosinophils Absolute Auto 200 /uL (0-450); Hematocrit 43.9 % (41-53); Hemoglobin 15.1 g/dL (13.5-17.5); Lymphocytes Absolute Auto 4000 /uL (1100-4500); Lymphocytes Percent Auto 41.5 % (25-40); Mean Corpuscular HGB Conc 34.3 % (30-36); Mean Corpuscular Hemoglobin 31.1 PG (26-34); Mean Corpuscular Volume 90.6 fL (80-100); Monocytes Absolute Auto 900 /uL (0-900); Monocytes Percent Auto 9.1 % (3-14); Neutrophils Absolute Auto 4400 /uL (1500-7000); Neutrophils Percent Auto 46.5 % (50-75); Platelet Count 148 X10^3/uL (150-400); Red Blood Cell Count 4.85 X10^6/uL (4.5-5.9); Red Cell Distribution Width 13.3 % (11.6-14.8); White Blood Cell Count 9.5 X10^3/uL (4.5-11.0)
[2021-02-11 00:10] LABS: Creatine Kinase 59 U/L (55-170); Lipase 160 U/L (23-300)
--- NOTE | 2021-02-11 00:20 | ED.CHESTPAIN ---
HPI - Chest Pain General Chief Complaint: Chest Pain Stated Complaint: chest pain Time Seen by Provider: 02/10/21 23:47 Source: patient Mode of arrival: Ambulatory Limitations: no limitations History of Present Illness HPI narrative: patient is a 71-year-old male. Is a [id number] diabetic has known coronary artery disease. Had a non ST elevation SC in 2018. Is followed by Cardiology. Has not had any chest discomfort since 2018 until this afternoon when he was sitting on the couch watching TV where he had retrosternal chest discomfort. Not made worse by palpation or movement. At its worst it was a 9/10 but by the time he came to the emergency department he was a 6/10. He did not take anything prior to arrival. He did have 1 episode of vomiting prior to arrival Related Data Home Medications Medication Instructions Recorded Confirmed aspirin 81 mg PO QDAY #0 05/25/17 08/29/19 multivitamin 1 cap PO DAILY 12/30/17 08/29/19 loratadine 10 mg tablet 10 mg PO DAILY PRN 02/10/18 08/29/19 nitroglycerin 0.3 mg sublingual 0.3 mg SL Q5-15M PRN 07/02/18 08/29/19 tablet metronidazole 0.75 % topical cream 1 applictn TOP DAILY PRN gram 08/02/18 08/29/19 metoprolol succinate 25 mg 50 mg PO DAILY tab 02/28/19 08/29/19 tablet,extended release 24 hr Previous Rx's Medication Instructions Recorded lisinopril 5 mg tablet 5 mg PO DAILY #90 tab 07/20/18 cholecalciferol (vitamin D3) 50 2,000 unit PO DAILY #90 cap 08/02/18 mcg (2,000 unit) capsule metformin 500 mg tablet 500 mg PO BID #180 tab 09/26/20 atorvastatin 20 mg tablet 20 mg PO BEDTIME #30 tab 10/26/20 Allergies Allergy/AdvReac Type Severity Reaction Status Date / Time naproxen [From NAPROSYN] Allergy Unknown stomach Verified 08/29/19 09:03 pain Review of Systems Constitutional Constitutional: Denies fever(s) Cardiovascular Cardiovascular: Reports chest pain and Denies dyspnea Respiratory Respiratory: Denies cough and Denies dyspnea Gastrointestinal Gastrointestinal: Denies abdominal pain, Denies change in bowel habits, Reports nausea and Reports vomiting Musculoskeletal Musculoskeletal: Denies back pain Integumentary/Breasts Skin/Breast: Reports system reviewed and no additional complaints, except as documented Neurologic Neurologic: Reports system reviewed and no additional complaints, except as documented Psychiatric Psychiatric: Reports system reviewed and no additional complaints, except as documented Hematologic/Lymphatic On Anticoagulants: No Allergic/Immunologic Allergic/Immunologic: Reports system reviewed and no additional complaints, except as documented Patient History Medical History Asthma CAD (coronary artery disease) Diabetes mellitus Essential hypertension Hearing loss (~2015) Multiple actinic keratoses (09/09/17) Nephrolithiasis Rosacea (09/09/17) Type 2 diabetes mellitus without complication, without long-term current use of insulin (09/09/17) Vision disorder Surgical History Anesthesia Ganglion cyst Status post knee surgery Family History Father Heart disease Diabetes mellitus Mother Age: 92 Cancer Hypertension Social History marital status: household members: spouse lives independently: Yes occupational status: other Smoking Status: Never smoker Smoking Status: Never smoker alcohol intake frequency: a few times a week Substance Use Type: does not use Exam Initial Vital Signs Initial Vital Signs: Vital Signs Pulse Rate 63 02/10/21 23:40 Respiratory Rate 21 02/10/21 23:40 Blood Pressure 130/94 H 02/10/21 23:40 Pulse Oximetry 98 02/10/21 23:40 Const General: cooperative and comfortable Limitations: mental status not altered [facility] Head: normal to inspection and normocephalic Chest Chest: No crepitus and No tenderness Resp Effort & Inspection: normal respiratory effort Auscultation: clear to auscultation bilaterally Cardio Rate: regular rate Rhythm: regular rhythm GI Inspection: non-distended Palpation: soft Skin Lesions: no lesions Rashes: no rashes Neuro General: patient alert and patient awake Cognition: normal cognition Speech: speech normal Extrem General: normal to inspection and capillary refill normal Psych Appearance: grossly normal and well kempt Scores GCS [place] coma scale eye opening: Spontaneous [place] coma scale verbal response: Orientated [place] coma scale motor response: Obey commands [place] coma scale total score: 15 Course Orders Ordered: ED Orders 02/10/21 23:48 XR chest 1V Stat EKG-12 Lead Stat 02/10/21 23:50 Complete Blood Count AUTO DIFF Stat Lipase Stat NT-proBNP (BNP-Adult 18+) Stat Troponin & CK Cardiac Panel Stat 02/11/21 01:30 COVID19 - ADMIT (ROSIN BARREL FILLER swab/PCR) Stat 02/11/21 02:30 Troponin & CK Cardiac Panel Stat 02/11/21 03:11 Partial Thromboplastin Time Stat Heparin Sodium/Dextrose (Heparin Drip) 25,000 unit in 500 mls @ 19.051 mls/hr IV CONT ALLA; Protocol Last Admin: 02/11/21 03:17 Dose: 12 units/kg/hr, 19.051 mls/hr Documented by: Discontinued Medications Aspirin (Aspirin 81 Mg Chew Tab) 324 mg PO NOW ONE Stop: 02/10/21 23:48 Last Admin: 02/10/21 23:52 Dose: 324 mg Documented by: ASHLEY Heparin Sodium (Porcine) (Heparin 5,000 Unit/Ml Vial) 4,000 unit IV NOW ONE Stop: 02/11/21 03:12 Last Admin: 02/11/21 03:17 Dose: 4,000 unit Documented by: Nitroglycerin (Nitroglycerin 0.4 Mg Sl Tab) 0.4 mg SL [id number] PRN PRN Reason: Chest Pain Last Admin: 02/11/21 00:42 Dose: 0.4 mg Documented by: Admin: 02/11/21 00:29 Dose: 0.4 mg Documented by: Admin: 02/11/21 00:23 Dose: 0.4 mg Documented by: ASHLEY Vital Signs Vital signs: Vital Signs - 8 hr 02/10/21 23:40 02/11/21 00:17 02/11/21 00:31 Pulse Rate 63 61 74 Respiratory Rate 21 17 23 Blood Pressure 130/94 H 135/69 106/64 Pulse Oximetry 98 96 94 02/11/21 00:40 02/11/21 00:50 02/11/21 01:00 Pulse Rate 68 71 64 Respiratory Rate 16 12 13 Blood Pressure 106/61 107/60 109/62 Pulse Oximetry 94 96 95 02/11/21 01:10 02/11/21 01:20 02/11/21 02:10 Pulse Rate 66 61 56 L Respiratory Rate 11 L 22 19 Blood Pressure 108/61 113/63 108/60 Pulse Oximetry 97 96 95 02/11/21 02:30 02/11/21 03:00 Pulse Rate 60 54 L Respiratory Rate 18 20 Blood Pressure 108/57 L 114/56 L Pulse Oximetry 96 97 MDM - Chest Pain Lab Data Attestation: I reviewed the patient's lab results. Result diagrams: 02/10/21 23:50 02/11/21 00:20 Labs: Lab Results 02/10/21 02/10/21 02/11/21 Range/Units 23:50 23:50 00:20 WBC 9.5 (4.5-11.0) X10^3/uL RBC 4.85 (4.5-5.9) X10^6/uL Hgb 15.1 (13.5-17.5) g/dL Hct 43.9 (41-53) % MCV 90.6 (80-100) fL MCH 31.1 (26-34) PG MCHC 34.3 (30-36) % RDW 13.3 (11.6-14.8) % Plt Count 148 L (150-400) X10^3/uL Neut % (Auto) 46.5 L (50-75) % Lymph % (Auto) 41.5 H (25-40) % [place] % (Auto) 9.1 (3-14) % Eos % (Auto) 2.0 (2-4) % Baso % (Auto) 0.9 (0-2) % Neut # (Auto) 4400 (5720-8276) /uL Lymph # (Auto) 4000 (4057-8920) /uL [place] # (Auto) 900 (0-900) /uL Eos # (Auto) 200 (0-450) /uL Baso # (Auto) 100 (0-100) /uL Sodium 136 L (137-145) mmol/L Potassium 4.3 (3.4-5.1) mmol/L Chloride 104 (98-107) mmol/L Carbon Dioxide 24 (22-32) mmol/L BUN 20 (9-20) mg/dL Creatinine 0.95 (0.66-1.25) mg/dL Estimated GFR > 60.0 (>60) mL/min BUN/Creatinine Ratio 21.1 (6-22) Glucose 196 H (80-110) mg/dL Calcium 9.2 (8.4-10.2) mg/dL Total Bilirubin 0.4 (0.2-1.3) mg/dL AST 29 (17-59) IU/L ALT 37 (<50) IU/L Alkaline Phosphatase 52 (38-126) U/L Total Creatine Kinase 59 (55-170) U/L CK-MB (CK-2) TNP CK-MB (CK-2) Rel Index TNP Troponin I 0.015 (0.01-0.034) ng/mL NT-Pro-B Natriuret Pep 89 (<125) pg/mL Total Protein 6.3 (6.3-8.2) g/dL Albumin 3.9 (3.5-5.0) g/dL Globulin 2.4 (1.7-4.1) g/dL Albumin/Globulin Ratio 1.6 (1.0-2.8) Lipase 160 (23-300) U/L SARS-CoV-2 (PCR) (Negative) 02/11/21 02/11/21 Range/Units 01:30 02:30 WBC (4.5-11.0) X10^3/uL RBC (4.5-5.9) X10^6/uL Hgb (13.5-17.5) g/dL Hct (41-53) % MCV (80-100) fL MCH (26-34) PG MCHC (30-36) % RDW (11.6-14.8) % Plt Count (150-400) X10^3/uL Neut % (Auto) (50-75) % Lymph % (Auto) (25-40) % [place] % (Auto) (3-14) % Eos % (Auto) (2-4) % Baso % (Auto) (0-2) % Neut # (Auto) (1915-0006) /uL Lymph # (Auto) (0807-1086) /uL [place] # (Auto) (0-900) /uL Eos # (Auto) (0-450) /uL Baso # (Auto) (0-100) /uL Sodium (137-145) mmol/L Potassium (3.4-5.1) mmol/L Chloride (98-107) mmol/L Carbon Dioxide (22-32) mmol/L BUN (9-20) mg/dL Creatinine (0.66-1.25) mg/dL Estimated GFR (>60) mL/min BUN/Creatinine Ratio (6-22) Glucose (80-110) mg/dL Calcium (8.4-10.2) mg/dL Total Bilirubin (0.2-1.3) mg/dL AST (17-59) IU/L ALT (<50) IU/L Alkaline Phosphatase (38-126) U/L Total Creatine Kinase 83 (55-170) U/L CK-MB (CK-2) TNP CK-MB (CK-2) Rel Index TNP Troponin I 0.268 H* (0.01-0.034) ng/mL NT-Pro-B Natriuret Pep (<125) pg/mL Total Protein (6.3-8.2) g/dL Albumin (3.5-5.0) g/dL Globulin (1.7-4.1) g/dL Albumin/Globulin Ratio (1.0-2.8) Lipase (23-300) U/L SARS-CoV-2 (PCR) Negative (Negative) Imaging Data Chest x-ray: Radiologist's Impression: no acute findings ECG Data Attestation: I personally reviewed and interpreted this ECG as follows: Prior ECG tracings: available for review Interpretation: sinus rhythm Ventricular rate of 64 Left bundle branch block Unchanged from EKG dated 06/2018 [facility] Narrative Medical decision making narrative: upon arrival patient was not hypertensive. His pain had improved from its maximum intensity which was at home. His EKG shows a left bundle branch block it is unchanged from prior EKG. after his 3rd troponin he was asymptomatic.His initial troponin was negative. Discussed the case with Dr. Canela with Cardiology who recommended repeating a troponin. This was completed in the 2nd troponin was elevated. He was then started on heparin. He had already received an aspirin. He remains asymptomatic. Will transfer to [facility] for further evaluation. Discussed with Hospitalist. discussed transfer the patient. He expressed understanding and agreement. Discharge Plan Departure Patient Disposition: [facility] Clinical Impression: Non-ST elevation SC (NSTEMI) Prescriptions: No Action metoprolol succinate 25 mg tablet extended release 24 hr 50 mg PO DAILY RF: 0 atorvastatin 20 mg tablet 20 mg PO BEDTIME Qty: 30 RF: 3 aspirin 81 MG tablet,delayed release (DR/EC) 81 mg PO QDAY Qty: 0 RF: 0 lisinopril 5 mg tablet 5 mg PO DAILY Qty: 90 RF: 3 metformin 500 mg tablet 500 mg PO BID Qty: 180 RF: 1 nitroglycerin 0.3 mg tablet, sublingual 0.3 mg SL Q5-15M PRNRF: 0 metronidazole 0.75 % cream 1 applictn TOP DAILY PRN (Reason: rosacea) RF: 0 cholecalciferol (vitamin D3) 2,000 unit capsule 2,000 unit PO DAILY Qty: 90 RF: 0 multivitamin capsule 1 cap PO DAILY RF: 0 loratadine [Allergy Relief (loratadine)] 10 mg tablet 10 mg PO DAILY PRN (Reason: Allergy Symptoms) RF: 0 Referrals: Eneida Gross DO [Primary Care Provider] -
[2021-02-11 00:22] LABS: NT-proBNP (BNP-Adult 18+) 89 pg/mL (<125); Troponin I 0.015 ng/mL (0.01-0.034)
[2021-02-11] MEDS: NITROGLYCERIN 0.4 MG SL TAB SL ×3 (00:23→00:42)
[2021-02-11 00:52] LABS: Alanine Aminotransferase 37 IU/L (<50); Albumin 3.9 g/dL (3.5-5.0); Albumin Globulin Ratio 1.6 (1.0-2.8); Alkaline Phosphatase 52 U/L (38-126); Aspartate Aminotransferase 29 IU/L (17-59); BUN Creatinine Ratio 21.1 (6-22); Bilirubin Total 0.4 mg/dL (0.2-1.3); Blood Urea Nitrogen 20 mg/dL (9-20); Calcium 9.2 mg/dL (8.4-10.2); Carbon Dioxide 24 mmol/L (22-32); Chloride 104 mmol/L (98-107); Estimated Glomerular Filt Rate > 60.0 mL/min (>60); Globulin 2.4 g/dL (1.7-4.1); Glucose 196 mg/dL (80-110); HEMOLYSIS < 15 (0-50); Potassium 4.3 mmol/L (3.4-5.1); Sodium 136 mmol/L (137-145); Total Protein 6.3 g/dL (6.3-8.2)
[2021-02-11 02:25] LABS: COVID19 - ADMIT (NP swab/PCR) Negative (Negative)
[2021-02-11 02:48] LABS: Creatine Kinase 83 U/L (55-170)
[2021-02-11 03:10] LABS: Troponin I 0.268 ng/mL (0.01-0.034)
[2021-02-11] MEDS: HEPARIN DRIP 25,000 UNIT/500 ML IV.SOLN 19.051 UNIT IV (03:17)
[2021-02-11] MEDS: HEPARIN 5,000 UNIT/ML VIAL 4000 UNIT IV (03:17)
[2021-02-11 03:39] LABS: PTT Partial Thromboplastin Tim 29 SECONDS (26.4-36.2)
--- NOTE | 2021-02-11 06:15 | PC.NURSE ---
Heparin Gtt still running at time of transport
== END 2021-02-11 04:20 | disposition short-term general hospital (02) ==
PROVIDERS: Emergency Provider Emergency Medicine; Family Provider Specialist; PCP Family Medicine
DX: I21.4 Non-ST elevation (NSTEMI) myocardial infarction (principal); R11.2 Nausea with vomiting, unspecified; Z20.822 Contact with and (suspected) exposure to COVID-19
CPT/HCPCS: 36415; 71045; 80053; 82550; 82553; 83690; 83880; 84484; 85025; 85730; 87635; 93005; 96365; 96375; 99284; C9803; J1644

== ENCOUNTER → 2021-02-25 12:42 | Outpatient (CLI) | payer MEDICARE, SELFPAY ==
[2019-08-29 09:33] VITALS: BMI 26.4
[2021-02-25 13:47] LABS: Hemoglobin A1C% w Est Avg Glu 8.1 % (4.0-6.0)
== END ==
PROVIDERS: Family Provider Specialist; PCP Family Medicine; Referring Provider Family Medicine; Visit Provider Family Medicine
DX: E11.9 Type 2 diabetes mellitus without complications (principal)
CPT/HCPCS: 36415; 83036

== ENCOUNTER → 2021-04-09 12:46 | Outpatient (CLI) | payer MEDICARE, SELFPAY ==
[2019-08-29 09:33] VITALS: BMI 26.4
--- NOTE | 2021-04-09 17:34 | DIET.PN1 ---
Initial Diabetes Assessment Name: Braden Umaña Date: 04/09/21 Time: 1-230p Preferred Name: oRbin Dx: Type II Diabetes Provider: Ginny Preferred Learning Style: Listening PMH: MT, HTN, CAD Robin presents today with his , Naila. S/p stint placemnt 30 days ago. FH DM with father. 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 Trying to avoid saturated fats. Denies h/o hypercholesteroemia. Avoids adding salt to foods. Naila very concerned about carb intake for Robin. Overall, tries to avoid having meat q day despite being meat and potato folks. Avoiding rice and bread currently, though Robin misses having a sandwich. Carb intake low. Needing more ideas for breakfast and dinners. Needing more ed on label reading. Reports elevated stress with mother in hospice, not eating. This causes him great stress. No stress mgmgnt techniques currently. Diet Recall: 7a: oats with berries and nuts or oat bran cereal with milk 10a: 4-5oz veggie smoothie 12-1p; lox with 4 crackers and cream cheese Or naan with veg and hummus and 4-5 grapes 3p: nuts 6p: fish taco with veg Or pork chop x 3 oz with caprese salad and 1/8 c brown rice water: 2-3 x 12oz, coffee 2-3 c with goal milk splash ETOH: 3 servings per week Anthropometrics: Ht: 68 Wt: 183# (178# reported) Physical Activity: increased recently. Walking daily 40 min (2mi) Self-Monitoring Blood Glucose: No log book or meter. Reports only checks fasting, which is usually less than 120 mg/dL. Today, 111 mg/dL. He is unsure why this number is different day to day. Reports higher readings prior to MT of 160 mg/dL, which was very worrisome for him. Pertinent Labs: HgA1c: 8.1% 02/25/21 Diabetes Medications: Nutrition Rx: Carbohydrates: Daily: 150g or less Meal: 30-45g Snack: 15-30g Nutrition Diagnosis: - Nutrition and food related knowledge deficit r/t min DM ed previously aeb pt report - Inadequate fiber intake r/t limited fruit or whole grain intake aeb diet recall Intervention: This participant was very receptive. Provided appropriate educational handouts. Discussed the following topics: - Completed intake assessment. Discussed barriers to care. - HgA1c and goal - Importance of self-monitoring, how often, and when to check. Suggested checking at different times to evaluate meals -Plate Method, impact of macronutrients on blood sugar, meal timing, carb counting, pairing macronutrients and spreading out CHO for better BG mgmnt - Rec servings for carbohydrates at meals and snacks - Heart [facility] nutrition - Label reading - Brainstormed appropriate meal plan based on food preferences - Role of physical activity and following provider guidelines for safety - Created SMART goals for pt self-care and success. Goals: - Check a few postprandial readings - Try to eat fish twice per week - Add whole grain bread for sandwiches back into diet Follow-up: [facility] follow-up after 1st of 3 DM ed class. Robin has never taken DM ed classes and would like to participate in the full program. First class begins 04/23/21. Светлана Castillo RDN, CDCES Certified Diabetes Care and Research Tech P: [phone]
== END ==
PROVIDERS: Family Provider Specialist; PCP Family Medicine; Referring Provider Family Medicine; Visit Provider Family Medicine
DX: E11.9 Type 2 diabetes mellitus without complications (principal); I10 Essential (primary) hypertension; Z71.3 Dietary counseling and surveillance
CPT/HCPCS: 97802

== ENCOUNTER → 2021-04-23 09:26 | Outpatient (CLI) | payer MEDICARE, SELFPAY ==
[2019-08-29 09:33] VITALS: BMI 26.4
--- NOTE | 2021-04-23 17:41 | DIAB.FU ---
Diabetes Education Class Series: Diabetes and Nutrition Name: Braden Umaña Date: 04/23/21 Time: 930a-12p Robin attended class with his Naila. States they are working on increasing vegetable intake and physical activity Class topics covered: ? Debunk nutrition myths and discuss how to sustain healthy eating long-term through moderation and variety ? Define macronutrients and determine their impact on blood sugars ? Discuss macronutrient pairing, Plate Method, and carb counting ? Review general recommendations for carbohydrates ? Practice label reading ? Discuss the role of fiber in diabetes and provide examples of sources ? Review heart health nutrition: fats, fiber, and sodium ? Determine recommendations for grocery shopping and eating out ? Discuss alcohol recommendations ? Review the role of substitute sugars in diabetes management ? Set SMART goals Goal Set: Walk a 15 min mile 3 x per week Follow-up: Diabetes Physiology and Medication Class in one week Светлана Castillo RDN, [facility] Registered Dietitian, Certified Diabetes Care and Railroad Engineer [phone] [email or web address]
== END ==
PROVIDERS: Family Provider Specialist; PCP Family Medicine; Referring Provider Family Medicine; Visit Provider Family Medicine
DX: E11.9 Type 2 diabetes mellitus without complications (principal); Z71.3 Dietary counseling and surveillance
CPT/HCPCS: G0108

== ENCOUNTER → 2021-04-30 09:15 | Outpatient (CLI) | payer MEDICARE, SELFPAY ==
[2019-08-29 09:33] VITALS: BMI 26.4
--- NOTE | 2021-05-01 16:13 | DIAB.FU ---
Diabetes Education Class Series: Diabetes Physiology and Medications Name: Braden Umaña Date: 05/01/21 Time: 930a-12p Robin presented to class without his today. He was very engaging in class. States he has been working on physical activity and stress for health recently. Reports implementing most recommendations discussed today. Class topics covered: ? Diabetes pathophysiology ? Discuss different types of diabetes ? Review criteria for diagnosing diabetes ? Review HgA1c measurement and associated blood sugars ? Review blood sugar monitoring safety, technique, and goals ? Discuss ways to reduce complications associated with diabetes, includes microvascular and macrovascular complications ? Review diabetes medications types, action, and side effects ? Health care visits recommended for people with T2DM ? Immunization recommended for people with T2DM Follow-up: Diabetes Lifestyle and Ongoing Support Светлана Castillo RDN, [facility] Registered Dietitian, Certified Diabetes Care and Printer Slotter Helper [phone] [email or web address]
== END ==
PROVIDERS: Family Provider Specialist; PCP Family Medicine; Referring Provider Family Medicine; Visit Provider Family Medicine
DX: E11.9 Type 2 diabetes mellitus without complications (principal); Z71.3 Dietary counseling and surveillance
CPT/HCPCS: G0109

== ENCOUNTER → 2021-05-07 09:23 | Outpatient (CLI) | payer MEDICARE, SELFPAY ==
[2019-08-29 09:33] VITALS: BMI 26.4
== END ==
PROVIDERS: Family Provider Specialist; PCP Family Medicine; Referring Provider Family Medicine; Visit Provider Family Medicine
DX: E11.9 Type 2 diabetes mellitus without complications (principal); Z71.3 Dietary counseling and surveillance
CPT/HCPCS: G0109

== ENCOUNTER → 2021-05-22 07:08 | Outpatient (CLI) | payer MEDICARE, SELFPAY ==
[2019-08-29 09:33] VITALS: BMI 26.4
[2021-05-22 08:14] LABS: Hemoglobin A1C% w Est Avg Glu 6.3 % (4.0-6.0)
[2021-05-22 08:22] LABS: BUN Creatinine Ratio 19.4 (6-22); Blood Urea Nitrogen 19 mg/dL (9-20); Calcium 9.7 mg/dL (8.4-10.2); Carbon Dioxide 29 mmol/L (22-32); Chloride 102 mmol/L (98-107); Estimated Glomerular Filt Rate > 60.0 mL/min (>60); Glucose 137 mg/dL (80-110); HEMOLYSIS < 15 (0-50); Potassium 4.4 mmol/L (3.4-5.1); Sodium 138 mmol/L (137-145)
== END ==
PROVIDERS: Family Provider Specialist; PCP Family Medicine; Referring Provider Family Medicine; Visit Provider Family Medicine
DX: E11.9 Type 2 diabetes mellitus without complications (principal); I10 Essential (primary) hypertension
CPT/HCPCS: 36415; 80048; 83036

== ENCOUNTER → 2021-05-23 14:19 | Outpatient (CLI) | payer MEDICARE, SELFPAY ==
[2019-08-29 09:33] VITALS: BMI 26.4
--- NOTE | 2021-05-23 16:31 | DIAB.FU ---
Follow-up Diabetes Education Assessment Name: Braden Umaña Date: 05/23/21 Time: 225-320p Dx: Type II Diabetes Provider: Ginny Kelly presents today with , Naila, for DM ed follow-up. Has attended DM ed classes and one MNT 1:1. His hgA1c has improved greatly, 6.3%. He continues on Metformin 1000 mg BID. He expressed interest in wanting to decrease dose, but also endorsed a 500 mg BID dose when HgA1c was 8.1%. Seems he would benefit from continued current dose of Metformin but encouraged him to discuss further with PCP. States he has been incorporating complex carbs in moderation. Has been eating fish 1-2 x per week. Dinner is adequate in vegetables, but lunch could be better. Being very mindful of sodium, stopped getting rotisserie chickens from [employer], making homemade salad dressings. Anthropometrics: Ht: 68 Wt: 172# reported Physical Activity: Attending cardiac rehab [facility]. This includes both cardio and resistance training for 70-90 mins. walking BID for 30 mins as well. Doing great with physical activity plan. Self-Monitoring Blood Glucose: No pc readings for review. All fastings in range. A few elevated pre lunch readings. Wondering if his breakfast is causing some hyperglycemia in the morning. Endorses heavier carb meals at breakfast with moderate protein. FBG range; 89-117 mg/dL Pre-lunch: 98-220 mg/dL (elevations: 168, 220, 159, 184 mg/dL) Pertinent Labs: 05/22/21: hgA1c 6.3% Diabetes Medications: Metformin 1000 mg BID Past Medical History: (Last Reviewed 04/01/21 @ 15:24 by Eneida Gross DO) Asthma CAD (coronary artery disease) [place] 06/2018, too small to stent, normal EF Dr. Castrejon NSTEMI 02/11/21 with stenting of the RCA Diabetes mellitus Essential hypertension Hearing loss (~2015) Multiple actinic keratoses (09/09/17) Nephrolithiasis Rosacea (09/09/17) Type 2 diabetes mellitus without complication, without long-term current use of insulin (09/09/17) Vision disorder Intervention: This participant was very receptive. Provided appropriate educational handouts. Discussed the following topics: Recent blood sugar results and trends. checking after breakfast reading. Medication management and benefits of Metformin Review of general nutrition recommendations and current intake Physical activity plan and impact on blood sugars Ways to increase omega 3 intake with food Things that are going well! Ways to increase veg at lunch Created SMART goals for patient self-care and success. Goals: Increase vegetable intake- improved Fish 2x per week- in progress Add ww bread for sandwiches- met Check some pc readings- not met personal goal of walk 2mi in 30 min - in progress Add veg to lunch (ie salad to chili) - new Check BG at 845a prior to morning walk and after breakfast- new Follow-up: [facility] follow-up prn. Robin would like to return in August for a check-in, so we scheduled for mid-month. Encouraged him and Naila to reach out with any questions or concerns prn. Светлана Castillo RDN, [facility] Certified Diabetes Care and Coil Machine Operator P: [phone] Thank you for this referral
== END ==
PROVIDERS: Family Provider Specialist; PCP Family Medicine; Referring Provider Family Medicine; Visit Provider Family Medicine
DX: E11.9 Type 2 diabetes mellitus without complications (principal); Z71.3 Dietary counseling and surveillance; Z79.84 Long term (current) use of oral hypoglycemic drugs
CPT/HCPCS: G0108

== ENCOUNTER 2021-08-07 08:30 | Outpatient (RCR) | payer MEDICARE, SELFPAY ==
[2019-08-29 09:33] VITALS: BMI 26.4
--- OUTSIDE RECORDS SUMMARY | 2021-03-05 08:29 | XMS_ITS ---
:1950 Author Organization [address] [address] Care Team Providers Name Role Phone Ginny Primary Care Provider Reason for Referral Hospital - Outpatient (Routine) Status Reason Specialty Diagnoses / Procedures Referred By Zechariah gutierrez Referred To Contact Closed Diagnoses NSTEMI (non-ST elevated myocardial infarction) (CMS/HCC) [facility] Yadira OUTPATIENT [address] 121 24 [facility] [address] [place] [phone] Phone: Electronically signed by Yadira Valles MD at Reason for Visit Auth/Cert Status Reason Specialty Diagnoses / Procedures Referred By Zechariah gutierrez Referred To Contact Diagnoses NSTEMI (non-ST elevated myocardial infarction) (CMS/HCC) Procedures INPATIENT Encounter Details Date Type Department Care Team Description 02/11/2021 - Hospital Encounter [facility] Diann Morin MD [address] [place], [place] [phone] NSTEMI (non-ST 02/13/2021 Hospital Progressive Marc Joe MD [address] [place], [place] [phone] elevated myocardial and Critical Care Kelley German DO [address] [place], [place] [phone] infarction) Unit ([facility]) (Primary [address] [place], [place] [id number] Allergies No Known Active Allergiesdocumented as of this encounter (statuses as of 03/04/2021) Medications Medication Sig Dispensed Refills Start Date End Date Status aspirin 81 mg EC Take 81 mg 0 Ac tive tablet by mouth daily cholecalciferol, Take 1,000 0 Ac tive vitamin D3, (VITAMIN Units by D3) 1,000 unit mouth daily capsule multivitamin capsule Take 1 0 Active capsule by mouth daily loratadine 10 mg Take 10 mg 0 Ac tive capsule by mouth daily as needed coenzyme Q10 (CO Take 400 mg 0 A ctive Q-10) 100 mg capsule by mouth daily diphenhydramine HCl Take by 0 Active (ALLERGY ORAL) mouth as needed fluorouracil APPLY TO SUN 3 06/03/2019 Act daisy (EFUDEX) 5 % cream DAMAGED SKIN BID FOR 30 DAYS metFORMIN Take 500 mg 0 09/26/2020 Active (GLUCOPHAGE) 500 mg by mouth 2 tablet (two) times a day lisinopriL Take 1 90 tablet 3 10/17/2020 Active (PRINIVIL) 5 mg tablet (5 mg tablet total) by mouth daily metoprolol succinate Take 1 90 tablet 3 10/17/2020 Active XL (TOPROL-XL) 50 mg tablet (50 24 hr tablet mg total) by mouth every morning nitroglycerin Place 1 25 tablet 11 10/17/2020 Activ e (NITROSTAT) 0.4 mg tablet (0.4 SL mg total) tabletIndications: under the NSTEMI (non-ST tongue every elevated myocardial 5 (five) infarction) minutes as ([facility]) needed for chest pain clopidogreL (PLAVIX) Take 1 30 tablet 0 02/13/2021 03/15/20 2 Active 75 mg tablet tablet (75 1 mg total) by mouth daily atorvastatin Take 1 30 tablet 0 02/13/2021 Active (LIPITOR) 40 mg tablet (40 1 tablet mg total) by mouth nightly atorvastatin Take 1 90 tablet 3 10/17/2020 Discon tinued (LIPITOR) 20 mg tablet (20 1 (St op Taking at tablet mg total) by Dischar ge) mouth nightly atorvastatin TAKE 1 90 tablet 0 12/04/2020 Discon tinued (LIPITOR) 10 mg TABLET BY 1 (Sto p Taking at tablet MOUTH Discharge) NIGHTLY documented as of this encounter (statuses as of 03/04/2021) Active Problems Problem Noted Date Diabetes mellitus type II, non insulin dependent 09/30 LBBB (left bundle branch block) 09/30/2018 Atypical chest pain 09/30/2018 Coronary artery disease involving belkofski coronary anna ry of belkofski heart 09/28/2018 without angina pectoris Essential hypertension 09/28/2018 Hyperlipidemia 09/28/2018 NSTEMI (non-ST elevated myocardial infarction) 018 Ureteral stone 01/07/2018 Overview: Added automatically from request for sarah jimenez [id number] documented as of this encounter (statuses as of 03/04/2021) Immunizations Name Administration Dates Next Due FLU 36+Mos Multi-dose 08/20/2015, 07/07/2014 (Flulaval,Fluzone) FLU High Dose 65+ (Fluzone) 06/09/2018, 06/15/2017, 07/16/20 16 Influenza, Quadrivalent 06/08/2013, 07/06/2012, 08/23/2010, 06/25/2009 [id number]-[id number]-2 Vaccine 10/03/2020, 09/09/2020 Pneumococcal Conjugate PCV13 08/20/2015 ([id number]) Pneumococcal Polysaccharide PPV23 09/29/2016 ([id number]) TD Preservative Free (Generic) 06/25/2009 TD Preservative Free (Tenivac) 06/25/2009 VFC FLU Multidose 36+Mos 08/20/2015, 07/07/2014 (Flulaval,Fluzone) VFC Pneumococcal Conjugate PCV13 08/20/2015 ([id number]) VFC Pneumococcal Polysaccharide PPV23 09/29/2016 ([id number]) documented as of this encounter Social History Tobacco Use Types Packs/Day Years Used Date Never Smoker Smokeless Tobacco: Never Used Alcohol Use Standard Drinks/Week Comments Yes 3 (1 standard drink = 0.6 oz pure alcoho l) 1-3 drinks weekly Sex Assigned at Date Recorded Not on file Job Start Date Occupation Industry Not on file Not on file Not on file COVID-19 Exposure Response Date Recorded In the last month, have you been in contact with No / Unsure 02/11/2021 5:18 AM PDT someone who was confirmed or suspected to have Coronavirus / COVID-19? documented as of this encounter Last Filed Vital Signs Vital Sign Reading Time Taken Comments Blood Pressure 123/71 02/13/2021 8:20 AM PDT Pulse 66 02/13/2021 8:20 AM PDT Temperature 36.7 ??C (98.1 ??F) 02/13/2021 8:20 AM PDT Respiratory Rate 16 02/13/2021 8:20 AM PDT Oxygen Saturation 96% 02/13/2021 8:20 AM PDT Inhaled Oxygen Concentration - - Weight 83.8 kg (184 lb 11.2 oz) 02/11/2021 5:16 AM PDT Height 172.7 cm (5' 8) 02/11/2021 5:16 AM PDT Body Mass Index 28.08 02/11/2021 5:16 AM PDT documented in this encounter Discharge Summaries Kelley German DO - 02/13/2021 8:08 AM PDT [facility] [place] [facility] Discharge Summary Inpatient Primary Care [facility] Name: Braden Martin Date of : 1950 Age: 71 y.o. Admit Date: 02/11/2021 Date of Discharge: 02/13/2021 Code Status: Full Code PCP: Eneida Gross. Admitting Provider: Shellie Morin MD Discharging Provider: Kelley German DO Hospital Day: 2 Date of Service: 02/13/2021 Pending Tests and other issues requiring follow up Follow-up with PCP in 1 week With follow-up CBC with differential in 1 week Follow-up with Dr. Castrejon of cardiology in 2 weeks for CAD Discharge Medications Robin Martin [place] Medication Instructions SHERYL:[id number] Printed on:02/13/21 4957 Medication Information aspirin 81 mg EC tablet Take 81 mg by mouth daily atorvastatin (LIPITOR) 40 mg tablet Take 1 tablet (40 mg total) by mouth nightly cholecalciferol, vitamin D3, (VITAMIN D3) 1,000 unit capsule Take 1,000 Units by mouth daily clopidogreL (PLAVIX) 75 mg tablet Take 1 tablet (75 mg total) by mouth daily coenzyme Q10 (CO Q-10) 100 mg capsule Take 400 mg by mouth daily diphenhydramine HCl (ALLERGY ORAL) Take by mouth as needed fluorouracil (EFUDEX) 5 % cream APPLY TO SUN DAMAGED SKIN BID FOR 30 DAYS lisinopriL (PRINIVIL) 5 mg tablet Take 1 tablet (5 mg total) by mouth daily loratadine 10 mg capsule Take 10 mg by mouth daily as needed metFORMIN (GLUCOPHAGE) 500 mg tablet Take 500 mg by mouth 2 (two) times a day metoprolol succinate XL (TOPROL-XL) 50 mg 24 hr tablet Take 1 tablet (50 mg total) by mouth every morning multivitamin capsule Take 1 capsule by mouth daily nitroglycerin (NITROSTAT) 0.[address] 1 tablet (0.4 mg total) under the tongue every 5 (five) minutes as needed for chest pain Brief Reason for Admission From the H&P performed by Shellie Morin MD on 02/11/2021: Braden Martin is a 71 y.o. male with a past medical history notable for CAD, type 2 diabetes mellitus, hypertension, and hyperlipidemia who was transferred from for NSTEMI management. He states that yesterday afternoon, while he was sitting and watching TV, he suddenly developed chest pressure, 9/10 in severity, which prompted his arrival to . There, his VS were found to be stable. EKG (per ED physician at ) demonstrates sinus rhythm with LBBB (previously seen). Initial troponin I was found to be 0.015. Chest pain resolved after 3 doses of nitroglycerin. He was also given a dose of ASA 324 mg while there. Cardiology consulted and recommended repeating a troponin level, and if elevated transferring to [facility] for further care. Repeat troponin I was 0.268. Started on heparin gtt and transferred to [facility]. Hospital Course by Problem Braden Martin??is a 71 y.o.??male??with past medical history of CAD, type 2 diabetes mellitus, hypertension, and hyperlipidemia who was transferred from for NSTEMI management. ?? NSTEMI, present on admission. Stable - EKG demonstrates sinus rhythm with LBBB -Troponin 0.084, 0.134, 1.04?? -AIDE to RCA placed by Dr Borden 02/11/21 -chest pain resolved post stenting -Patient is winded easily getting up to the bathroom today -continue DAPT for now with close monitoring of platelet count ?? Acute thrombocytopenia, not present on admission, stable -patient was placed on heparin trip during this admission due to NSTEMI -Plt's went from 133 down to 59 overnight. But follow-up lab work showed that this is in a lab error --Follow-up CBC with auto differential in 1 week --Discussed case with cardiology Dr. Way ?? Type 2 diabetes mellitus, present on admission. Chronic and stable. -Continue his home regimen ?? Hypertension, present on admission. Chronic and stable. - On home lisinopril - Continue home metoprolol, continue home lisinopril ?? Hyperlipidemia, present on admission. Chronic and stable. - Continue home statin(increase dose to 40 mg daily), pending Lipoprotein A. Dr. Castrejon to review this with patient at follow-up ? Disposition Braden Martin was discharged to Home in stable condition. Objective First recorded vital signs: Temp: 36.6 ??C (97.9 ??F) - BP: 127/79 - Heart Rate: (!) 55 - Resp: 16 - SpO2: 99 % O2 Flow Rate (L/min): 4 L/min Most recent vital signs: Temp: 36.4 ??C (97.6 ??F) - BP: 131/76 - Heart Rate: 62 - Resp: 18 - SpO2: 95 % O2 Flow Rate (L/min): 4 L/min Physical Exam Vitals and nursing note reviewed. Constitutional: General: He is not in acute distress. Appearance: Normal appearance. He is not ill-appearing or diaphoretic. HENT: Head: Normocephalic and atraumatic. Cardiovascular: Rate and Rhythm: Normal rate and regular rhythm. Pulmonary: Effort: Pulmonary effort is normal. Breath sounds: Normal breath sounds. Musculoskeletal: Right lower leg: No edema. Left lower leg: No edema. Skin: General: Skin is warm and dry. Findings: Slightly large area of old bruising from cath procedure over his right groin area, he is nontender Neurological: General: No focal deficit present. Mental Status: He is alert and oriented to person, place, and time. I have seen and examined Braden Martin on 02/13/2021. Labs & ECG Hematology Results from last 7 days Lab Units 02/13/21 0438 02/12/21 1353 02/12/21 0553 WBC AUTO x10e3/uL 6.9 6.4 5.3 HEMOGLOBIN g/dL 14.6 14.6 14.0 HEMATOCRIT % 43.0 41.2 42.0 MCV fL 94 89 95 PLATELETS AUTO x10e3/uL 129* 132* 59* Chemistries Results from last 7 days Lab Units 02/13/21 0438 02/12/21 0651 SODIUM mmol/L 135 135 POTASSIUM mmol/L 4.2 4.3 CHLORIDE mmol/L 102 105 CO2 mmol/L 21 24 BUN mg/dL 15.0 15.0 CREATININE mg/dL 0.87 0.87 GLUCOSE mg/dL 175* 197* CALCIUM, SERUM mg/dL 8.9 8.9 AST U/L 33 53* ALT U/L 32 37 BILIRUBIN TOTAL mg/dL 0.6 0.6 ALBUMIN g/dL 3.8 3.8 TOTAL PROTEIN g/dL 6.2* 6.1* Estimated Creatinine Clearance: 70.5 mL/min (by C-G formula based on SCr of 0.87 mg/dL). Coagulation Studies No lab exists for component: PROTIME Urinalysis Cardiac Enzymes Results from last 7 days Lab Units 02/11/21 1834 02/11/21 0940 02/11/21 0601 CKTOTAL U/L 417* 253* 187 CKMB ng/mL 43.2* 27.8* 19.4* TROPONINT ug/L 1.040* 0.134* 0.084* ECG LBBB. Important Diagnostic Imaging SI STENT AIDE - CORONARY Result Date: 02/13/2021 Narrative: PATIENT PROFILE: The patient is a 71-year-old male who presented with non ST elevated myocardial infarction. PROCEDURE: 1. Moderate sedation for 22 minutes. 2. Balloon angioplasty and stenting to the distal right coronary artery. VASCULAR CLOSURE DEVICE: Angio-Seal. COMPLICATIONS: None. METHOD: Additional moderate sedation was achieved with IV Versed and IV fentanyl under my direct supervision for 22 minutes. A 6-Micronesian hockey-stick guide was advanced to the right coronary ostium. A Runthrough wire was placed inside the right coronary artery. The distal right coronary artery lesion was pre-dilated with a 2.5 x 12 mm balloon. A Xience 3.0 x 12 mm stent was placed inside the lesion and deployed at 20 atmospheres for 20 seconds. Final angiogram was obtained. Following sheath removal, hemostasis was achieved by using Angio-Seal device. The patient tolerated the procedure well.He was transferred to [facility] in good condition. TOTAL CONTRAST USED: 70 cc. FLUOROSCOPY TIME: 2.5 minutes. RESULTS: Successful balloon angioplasty and stenting to the critical distal right coronary arterylesion by deploying one drug-eluting stent (3.0 x 12 mm), to achieve an excellent angiographic result with MARIA DE JESUS-3 flow distally. ECHOCARDIOGRAM COMPLETE Result Date: 02/11/2021 Narrative: [facility] + + [facility] +---------+ : : [address] : : : : [place], : : : : [place] [address] : : : : Phone: [phone] Echocardiogram Report + + :Name: BRADEN MARTIN Study Date: 02/11/2021 Height: 67.5 in: :[facility] ReadingLocation: Weight: 185 lb : : Gender: Male BSA: 2.0 m2 : :: 1950 Age: 71 yrsBP: 127/79 mmHg: :Reason For Study: NSTEMI : :Ordering Physician: EMILY, : :SHELLIE Performed By: Kaylin Arauz : :Referring: ELIZABETH TEAM : + + Interpretation Summary Normal left ventricle size with ejection fraction 55%. Mild dyssynchronous contraction pattern, consistent with a conduction abnormality. Mild hypokinesis of mid inferior wall. Mild aortic valve sclerosis. Mild mitral regurgitation. Comparison is made with the echocardiogram of 01/26/2019, there has been no significant change. Procedure: A two-dimensional transthoracic echocardiogram with color flow and Doppler was performed. The study quality was technically adequate. Comparison is made with the echocardiogram of 01/26/2019. The patient was in sinus rhythm with heart rates between 52-64 bpm during the exam. Left Ventricle: The left ventricle is normal in sizeand wall thickness. Left ventricular ejection fraction is estimated to be 55%. There is a mild dyssynchronous contraction pattern, consistent with a conduction abnormality. There is mid inferior wall mild hypokinesis. There are no other obvious focal wall motion abnormalities. Right Ventricle: The right ventricle is normal in size and function. Atria: Both atria are normal in size. There is no Doppler evidence for an interatrial shunt. Mitral Valve: The mitral valve is normal in structure and function. There is mild mitral regurgitation. Aortic Valve: The aortic valve is trileaflet. The aortic valve opens well. There is mild aortic valve sclerosis. No aortic regurgitation is present. Tricuspid Valve: The tricuspid valve is normal in structure and function. There is a trace or physiologic amount of tricuspid regurgitation. Pulmonary artery pressures cannot be estimated because of the lac k of a measurable TR jet velocity but the IVC suggests a CVP of around 3 mmHg. Pulmonic Valve: Thepulmonic valve is not well seen, but is grossly normal. Great Vessels: The aortic root is mildly dilated. The ascending aorta is normal in size. The pulmonary artery is not well visualized, but is probably normal size. The IVC is of normal diameter and collapses greater than 50% with a sniff. This suggests a low right atrial pressure of 3 mm Hg. Pericardium/ Pleura There is no pericardial effusion. MMode/2D Measurements & Calculations LVIDd: 3.7 cm LVOT diam: 2.1cm LVIDs: 2.5 cm Ao root diam: 4.0 cm IVSd: 0.81 cm asc Aorta Diam: 3.1 cm LVPWd: 0.83 cm Ao Arch Diam (distal): 2.6 cm LV farias. diameter/BSA (cm/m^2): 1.9 LV sys. diameter/BSA (cm/m^2): 1.2 FS: 33.6 % LA A2 area: 15.9 cm2 RA long axis: 4.3 cm LA A4 area: 14.3 cm2 RA area: 12.0 cm2 LA length (vol): 4.4 cm RA vol: 28.0 ml LA vol: 43.7 ml RA : 14.2 ml/m2 LA vol index: 22.2 ml/m2 RVD1 (basal): 3.1 cm IVC diam: 0.98 cm RVD2 (mid): 1.9 cm TAPSE: 1.9 cm Doppler Measurements & Calculations Ao V2 max: 102.7 cm/sec LVOT Max Howard: 91.5 cm/sec Ao V2 mean: 72.7 cm/sec LV V1 max P.4 mmHg Ao V2 VTI:22.5 cm LV V1 VTI: 20.4 cm Ao max P.2 mmHg Ao mean P.3 mmHg __ SEAN(I,D): 3.0 cm2 MV E max howard: 79.6 cm/sec SEAN(V,D): 3.0 cm2 MV A max howard: 68.9 cm/sec SEAN indexed to BSA (cm^2/m^2): 1.5 MV E/A: 1.2 sev ratio: 0.91 Med Peak E' Howard: 4.8 cm/sec E/E' med: 16.7 Lat Peak E' Howard: 10.4 cm/sec E/E' lat: 7.7 E/e' average: 12.2 MV P1/2t: 50.2 msec PA V2 max: 74.6 cm/sec MVA(P1/2t): 4.4 cm2 PA V2 mean: 49.1 cm/sec PA mean P.1 mmHg PA Accel Time: 0.06 sec SV(LVOT): 67.6 ml Electronically signed by: Yadira Charles on Reading Physician:02/11/2021 09:47 AM SI LEFT HEART CATH Result Date: 02/12/2021 Narrative: Cardiac Cath Report Date of Service 02/11/2021 Procedure: LHC Indications: chest pain Patient is a 71-year-old man with non-STEMI. Troponin T peaked at 0.[address] changes. He experienced dizziness, sweatiness, clamminess and chest pain across his chest. He has previously d ocumented coronary artery disease with occluded ostial circumflex and 80% ostial diagonal lesion. Vascular Access Right Femoral Artery using 6 Fr sheath. Diagnostic Catheters Left main: JL, 4.0, 6 Fr RCA: JR, 4.0, 6 Fr Procedure Details Left heart cath details: Following informed consent, patient was prepped and draped in the usual sterile fashion. Patient was sedated with Versed and Fentanyl. A 6-Micronesian sheath was placed in the right common femoral artery under dynamic ultrasound guidance. JL4and JR4 catheters were used to engage left main and right coronary artery ostia, respectively. Handinjection and craniocaudal angulation was used to obtain selective coronary angiograms. All exchanges were performed over a wire. Pigtail was advanced into the LV; end diastolic pressure was recorded.Pigtail was withdrawn into the aorta, and pullback was recorded. Case was turned over for intervention Medications/Fluoro Time Fluorscopy Time: 1.3 minutes Contrast (Isovue): 60 mls Blood loss: 5 mls Fi ndings CORONARY ANGIOGRAPHY Lm is a long vessel which gives rise to LAD only. LCX had been found to be occluded during 2018 angiogram, and remains occluded ostially today LAD is a medium caliber vesselwhich gives rise to a medium D1 with 80% ostial lesion, medium bifurcating D2 and small D3. RCA is alarge dominant vessel, which gives rise to a large PDA and PL branch. 90% distal RCA stenosis is present. RCA is fed via L-R collaterals. ?? FEMORAL ANGIOGRAM - right bag machine set up operator gives rise to SFA and Profundafemoris. There is no stenosis present. Sheath enters right [employer] at the 50th percentile hallie of the femoral head. No contrast extravasation or dissection HEMODYNAMICS - edp 27 mm Hg; no aortic stenosis based on pullback Complications There were no periprocedural complications identified Summary: Severe coronary artery disease with 90% distal RCA stenosis proximal to PDA takeoff. Previously documented occluded circumflex 90% ostial diagonal lesion. Recommendations: Proceed with RCA intervention Eufemia Way MD Admission Diagnosis(es) NSTEMI (non-ST elevated myocardial infarction) ([facility]) [I21.4] Present on Admission: None Discharge Diagnosis(es) Active Problems: No Active Problems: There are no active problems currently on the Problem List. Please update the Problem List and refresh. Hospital Operative Procedures * No surgery found * Activity Limited activity until follow-up with PCP and cardiology Cardiac rehab referral is sent Functional status prior to admission: Independent. Functional status at discharge (including NSOC): Independent. Diet Order at Time of Discharge Dietary Orders (From admission, onward) Start Ordered 02/11/21 1622 Adult Diet Diet effective now Comments: advance as tolerated to general Heart Healthy Question Answer Comment Diet type: Consistent Carbohydrate Consistent Carbohydrate: 60 gm/meal Supervision: Independent Meal Ordering: Select 02/11/21 1621 Advanced Care Planning Code Status: Full Code Advanced Care Planning Note documented: No POLST on file?: No Allergies No Known Allergies This discharge summary has been routed to Eneida Gross via [facility] message or fax. Readmission Prevention: Has the discharge teach-back been completed: Yes Has a PCP. appt. ordered for post hospitalization 6 days after DC? Yes Has this been communicated with the PCP by the time the DC has taken place? Yes I spent greater than 30 minutes in preparation of discharge for Braden Martin. Greater than 50% of that time was dedicated to patient counseling and coordination of care. Thank you for allowing me to participate in the care of Braden Martin.. Electronically signed by: Kelley German DO 02/13/2021 8:08 AM documented in this encounter Discharge Instructions Kelley Erwin DO - 02/13/2021 Physician instructions: Take atorvastatin 40 mg nightly as prescribed Take both aspirin and Plavix as prescribed daily. Please report any excessive bleeding to medical personnel right away. Follow-up CBC with auto diff in 1 week and follow-up with PCP in 1 week to review the lab work. Follow-up with Dr. Castrejon of cardiology in 2 weeks for heart disease. Maintain optimal control of blood pressure and blood glucose to reduce your risk of heart disease. Cardiac rehab referral is placed, they will contact you at home to set up an appointment. documented in this encounter Medications at Time of Discharge Medication Sig Dispensed Refills Start Date End Date aspirin 81 mg EC tablet Take 81 mg by 0 mouth daily atorvastatin (LIPITOR) 40 Take 1 tablet (40 30 tablet 0 03/15/2021 mg tablet mg total) by mouth nightly cholecalciferol, vitamin Take 1,000 Units 0 D3, (VITAMIN D3) 1,000 unit by mouth daily capsule clopidogreL (PLAVIX) 75 mg Take 1 tablet (75 30 tablet 0 03/15/2021 tablet mg total) by mouth daily coenzyme Q10 (CO Q-10) 100 Take 400 mg by 0 mg capsule mouth daily diphenhydramine HCl Take by mouth as 0 (ALLERGY ORAL) needed fluorouracil (EFUDEX) 5 % APPLY TO SUN 3 06/03/20 19 cream DAMAGED SKIN BID FOR 30 DAYS lisinopriL (PRINIVIL) 5 mg Take 1 tablet (5 90 tablet 3 10/2020 tablet mg total) by mouth daily loratadine 10 mg capsule Take 10 mg by 0 mouth daily as needed metFORMIN (GLUCOPHAGE) 500 Take 500 mg by 0 09/26 mg tablet mouth 2 (two) times a day metoprolol succinate XL Take 1 tablet (50 90 tablet 3 10/17 (TOPROL-XL) 50 mg 24 hr mg total) by mouth tablet every morning multivitamin capsule Take 1 capsule by 0 mouth daily nitroglycerin (NITROSTAT) Place 1 tablet 25 tablet 11 2020 0.4 mg SL (0.4 mg total) tabletIndications: NSTEMI under the tongue (non-ST elevated myocardial every 5 (five) infarction) (CMS/HCC) minutes as needed for chest pain documented as of this encounter Progress Notes Eufemia Way MD - 02/12/2021 5:14 PM PDT Subjective Patient ID: Braden Martin is a 71 y.o. male that presents today for chest pain HPI: This morning pt is pain free. He is concerned about strong FH of CAD in dad and brother. Lp(a) pending. Past Medical History: Diagnosis Date ??? Asthma none for 20 years-air particulate sensitivity ??? Coronary artery disease involving belkofski coronary artery of belkofski heart without angina pectoris09/28/2018 ??? Diabetes mellitus (CMS/HCC) average BS am 130-140 ??? Essential hypertension 09/28/2018 ??? Herpes keratitis ??? Kidney stone Past Surgical History: Procedure Laterality Date ??? COLON SURGERY colonoscopy ??? FRACTURE SURGERY ??? KNEE SURGERY ??? GA CYSTO/URETERO W/LITHOTRIPSY &INDWELL STENT INSRT Left 01/14/2018 Procedure: CYSTOSCOPY, LEFT URETEROSCOPY, LASER LITHOTRIPSY, LEFT STENT PLACEMENT; Surgeon: SandraJ. Ilda MD; Location: [facility]; Service: Urology ??? WRIST SURGERY No Known Allergies Current Medication List Sig aspirin 81 mg EC tablet Take 81 mg by mouth daily atorvastatin (LIPITOR) 10 mg tablet TAKE 1 TABLET BY MOUTH NIGHTLY atorvastatin (LIPITOR) 20 mg tablet Take 1 tablet (20 mg total) by mouth nightly cholecalciferol, vitamin D3, (VITAMIN D3) 1,000 unit capsule Take 1,000 Units by mouth daily coenzyme Q10 (CO Q-10) 100 mg capsule Take 400 mg by mouth daily diphenhydramine HCl (ALLERGY ORAL) Take by mouth as needed fluorouracil (EFUDEX) 5 % cream APPLY TO SUN DAMAGED SKIN BID FOR 30 DAYS lisinopriL (PRINIVIL) 5 mg tablet Take 1 tablet (5 mg total) by mouth daily loratadine 10 mg capsule Take 10 mg by mouth daily as needed metFORMIN (GLUCOPHAGE) 500 mg tablet Take 500 mg by mouth 2 (two) times a day metoprolol succinate XL (TOPROL-XL) 50 mg 24 hr tablet Take 1 tablet (50 mg total) by mouth every morning multivitamin capsule Take 1 capsule by mouth daily nitroglycerin (NITROSTAT) 0.[address] 1 tablet (0.4 mg total) under the tongue every 5 (five) minutes as needed for chest pain Facility-Administered Medications Sig acetaminophen (TYLENOL) tablet 650 mg 650 mg, oral, Every 4 hours PRN aspirin EC tablet 81 mg 81 mg, oral, Daily atorvastatin (LIPITOR) tablet 40 mg 40 mg, oral, Nightly atropine injection (abboject) 1 mg 1 mg, intravenous, Every 5 min PRN, Repeat as directed. clopidogreL (PLAVIX) tablet 75 mg 75 mg, oral, Daily dextrose 50 % in water (D50W) g injection 12.5-50 g 12.5-50 g, intravenous, As needed, For blood glucose less than 50 if the patient is NPO and/or non- responsive and an IV is in place.

Check BG every 15 minutes and repeat rescue therapy until BG greater than 100 ml/dL.
If BG less than 50 mg/dL OR hypoglycemia persists at 40 min, notify provider STAT to evaluate.

Once BG greater than 100 ml/dL, re-check BG in 1 hr to detect recurrent hypoglycemia.
Notify Provider of hypoglycemic incident and document hypoglycemia management. diphenhydrAMINE (BENADRYL) injection 12.5-25 mg 12.5-25 mg, intravenous, Once, Give 1 hour prior toprocedure. For patients 65 yrs or older. flumazeniL (ROMAZICON) injection 0.2 mg 0.2 mg, intravenous, As needed, every 20 min prn for suspected benzodiazepine overdose insulin lispro injection 0-5 Units 0-5 Units, subcutaneous, Nightly, Observe Hazardous Substance Precautions; Dispose of Product and Packaging in Black Waste Container insulin lispro injection 0-6 Units 0-6 Units, subcutaneous, 3 times daily with meals, Low Dose Correctional Insulin
Observe Hazardous Substance Precautions; Dispose of Product and Packaging in Black Waste Container lidocaine (XYLOCAINE) 10 mg/mL (1 %) injection 1 mL 1 mL, infiltration, Once as needed Linked Group 1: And Linked Group Details lidocaine (XYLOCAINE) 10 mg/mL (1 %) injection 1 mL 1 mL, infiltration, Once as needed Linked Group 2: And Linked Group Details LORazepam (ATIVAN) injection 0.5 mg 0.5 mg, intravenous, Once, if patient 65 years or older. metoprolol succinate XL (TOPROL-XL) 24 hr tablet 50 mg 50 mg, oral, Every morning naloxone (NARCAN) injection 0.04 mg 0.04 mg, intravenous, As needed, Every 1 Minute PRN For Opiate Reversal
1. Draw up 0.4 mg (1 mL) in 10 mL syringe, and dilute with 9 mL of saline for an naloxone concentration of 0.04 mg/mL.
2. Give 0.04 mg (1 mL) IV push flushing solution into vein and repeat every min until resp rate greater than 10 per min and level of sedation improved.
3. Notify Provider STAT. nitroglycerin (NITROSTAT) SL tablet 0.4 mg 0.4 mg, sublingual, Every 5 min PRN, May administer up to 3 doses per episode.
Fall Risk Category 4 sodium chloride (NS) 0.9 % infusion () 100 mL/hr (100 mL/hr), intravenous, Continuous @ 100 mL/hr, then saline lock until patient ready for discharge. sodium chloride 0.9 % flush 10 mL 10 mL, intravenous, As needed Linked Group 1: And Linked Group Details sodium chloride 0.9 % flush 10 mL 10 mL, intravenous, As needed Linked Group 2: And Linked Group Details REGULAR INSULIN (HumuLIN R) injection 0-6 Units (Discontinued) 0-6 Units, subcutaneous, Every 6 hours, Low Dose Correctional Insulin
Observe Hazardous Substance Precautions; Dispose of Product and Packaging in Black Waste Container BP 130/75 (BP Location: Right arm, Patient Position: Semi-[place]'s) Pulse 68 Temp 36.8 ??C (98.2 ??F) Resp 20 Ht 1.727 m Wt 83.8 kg SpO2 97% BMI 28.08 kg/m?? Intake/Output Summary (Last 24 hours) at 02/12/2021 1714 Last data filed at 02/12/2021 1500 Gross per 24 hour Intake 1050 ml Output 300 ml Net 750 ml Physical Exam Constitutional WN WD in NAD Mouth/Throat No thrush Eyes No scleral icterus Neck Supple no lymphadenopathy and no carotid bruit Cardiovascular Normal s1 and s2, no m/r/g Pulmonary/Chest cta anteriorly Abdominal Soft + bs no HSM Musculoskeletal No obvious musculoskeletal abnormalities Vascular Intact radial pulses, carotid pulses Neurological No apparent focal neurologic findings Skin No rashes or lesions Patient Active Problem List Diagnosis ??? Ureteral stone ??? NSTEMI (non-ST elevated myocardial infarction) (CMS/HCC) ??? Coronary artery disease involving belkofski coronary artery of belkofski heart without angina pectoris ??? Essential hypertension ??? Hyperlipidemia ??? Diabetes mellitus type II, non insulin dependent (CMS/HCC) ??? LBBB (left bundle branch block) ??? Atypical chest pain LABORATORY AND RADIOLOGY REVIEW Results from last 7 days Lab Units 02/12/21 1353 02/12/21 0553 02/11/21 0601 WBC AUTO x10e3/uL 6.4 5.3 6.8 HEMOGLOBIN g/dL 14.6 14.0 13.7* HEMATOCRIT % 41.2 42.0 40.0* PLATELETS AUTO x10e3/uL 132* 59* 133* Results from last 7 days Lab Units 02/12/21 0651 SODIUM mmol/L 135 POTASSIUM mmol/L 4.3 CHLORIDE mmol/L 105 CO2 mmol/L 24 BUN mg/dL 15.0 CREATININE mg/dL 0.87 GLUCOSE mg/dL 197* Results from last 7 days Lab Units 02/12/21 0651 BILIRUBIN TOTAL mg/dL 0.6 Results from last 7 days Lab Units 02/11/21 1834 02/11/21 0940 02/11/21 0601 TROPONINT ug/L 1.040* 0.134* 0.084* Assessment/Plan Assessment/Plan Comments: In summary patient is a 72-year-old man with hyperlipidemia (controlled as of September 2020), diabetes (controlled on oral hypoglycemic) and hypertension (controlled on 2 antihypertensive drugs). Patient has known coronary artery disease status post cath in 2018. It demonstrated occluded nondominant circumflex and 80% proximal first diagonal lesion not amenable to intervention. He is coming in with non-STEMI. EKG is uninterpretable due to old left bundle branch block. cATH yesterday showed progressive CAD s/p PCI RCA (90% distal lesion). He is pain free today PLAN: Hl - most recent lipids 10/02/2020 showed LDL 66. Continue statin; increase lipitor from 20 to 40 mg daily HTN - controlled DM - controlled FH cad - recommend lp(a) testing Stent management - dapt ideally until 02/12/2022 Low platelet - no longer an issue upon recheck. Tele wn. Home tomorrow Electronically signed by Eufemia Way MD 02/12/2021 5:14 PM Marc Louise MD - 02/12/2021 1:23 PM PDT [facility] Progress Note Inpatient Primary Care [facility] Patient Name: Braden Martin Date of : 1950 Age: 71 y.o. Code Status: Full Code Primary Care Physician: Eneida Gross Admitting Provider: Shellie Morin MD Attending Provider: Marc Joe MD Admit Date: 02/11/2021 Date of Service: 02/12/2021 Hospital Day: 1 Assessment and Plan Braden Martin is a 71 y.o. male with past medical history of CAD, type 2 diabetes mellitus, hypertension, and hyperlipidemia who was transferred from for NSTEMI management. ?? NSTEMI, present on admission. - EKG demonstrates sinus rhythm with LBBB -Troponin 0.084, 0.134, 1.04?? -AIDE to RCA placed by Dr Borden 02/11 -chest pain resolved post stenting -Patient is winded easily getting up to the bathroom today -continue DAPT for now with close monitoring of platelet count Acute thrombocytopenia, possible HIT -patient was placed on heparin trip yesterday -Plt's went from 133 down to 59 overnight -4T score is 2 which is low probability so will not place on anticoagulation at this time -Will check for HIT autoantibodies and monitor platelets Type 2 diabetes mellitus, present on admission. Chronic and stable. - Hold home metformin while inpatient - Started on ISS ?? Hypertension, present on admission. Chronic and stable. - On home lisinopril - Continue home metoprolol ?? Hyperlipidemia, present on admission. Chronic and stable. - Continue home statin ?? VTE Prophylaxis SCDs Disposition Anticipate home in 1-2 days Subjective Patient's Update Patient denies chest pain since stent placement yesterday. No leg or arm swelling, bruising, or new rashes or skin lesions. He gets winded going to and from the bathroom. Objective BP 117/73 (BP Location: Right arm, Patient Position: Semi-[place]'s) Pulse 85 Temp 36.6 ??C (97.9 ??F) Resp 20 Ht 1.727 m Wt 83.8 kg SpO2 97% BMI 28.08 kg/m?? Intake/Output Summary (Last 24 hours) at 02/12/2021 1323 Last data filed at 02/12/2021 1259 Gross per 24 hour Intake 968.41 ml Output 300 ml Net 668.41 ml Physical Exam Vitals and nursing note reviewed. Constitutional: General: He is not in acute distress. Appearance: Normal appearance. He is not ill-appearing or diaphoretic. HENT: Head: Normocephalic and atraumatic. Cardiovascular: Rate and Rhythm: Normal rate and regular rhythm. Pulmonary: Effort: Pulmonary effort is normal. Breath sounds: Normal breath sounds. Musculoskeletal: Right lower leg: No edema. Left lower leg: No edema. Skin: General: Skin is warm and dry. Findings: No bruising or lesion. Neurological: General: No focal deficit present. Mental Status: He is alert and oriented to person, place, and time. Current Hospital Medications Medications Scheduled aspirin, 81 mg, oral, Daily atorvastatin, 40 mg, oral, Nightly clopidogreL, 75 mg, oral, Daily diphenhydrAMINE, 12.5-25 mg, intravenous, Once insulin lispro, 0-5 Units, subcutaneous, Nightly insulin lispro, 0-6 Units, subcutaneous, TID with meals LORazepam, 0.5 mg, intravenous, Once metoprolol succinate XL, 50 mg, oral, q AM Labs and ECG Hematology Results from last 7 days Lab Units 02/12/21 0553 02/11/21 0601 WBC AUTO x10e3/uL 5.3 6.8 HEMOGLOBIN g/dL 14.0 13.7* HEMATOCRIT % 42.0 40.0* MCV fL 95 92 PLATELETS AUTO x10e3/uL 59* 133* Chemistries Results from last 7 days Lab Units 02/12/21 0651 SODIUM mmol/L 135 POTASSIUM mmol/L 4.3 CHLORIDE mmol/L 105 CO2 mmol/L 24 BUN mg/dL 15.0 CREATININE mg/dL 0.87 GLUCOSE mg/dL 197* CALCIUM, SERUM mg/dL 8.9 AST U/L 53* ALT U/L 37 BILIRUBIN TOTAL mg/dL 0.6 ALBUMIN g/dL 3.8 TOTAL PROTEIN g/dL 6.1* Electronically signed by: Marc Joe MD 02/12/2021 at 1:23 PM Portions of today's documentation have been created with the assistance of voice recognition software. Therefore, it may contain anomalous punctuation, anomalous independent misrecognitions, word substitutions, insertions or omissions. Occasional wrong-word or phonetically similar substitutions may also occur, all due to the inherent limitations of voice recognition software. Attempts to correct the above have been made by Marc Joe MD but it is recommended that the chart be read carefully to recognize, using context, where the substitutions may have occurred. Amber Francis PharmD - 02/11/2021 11:29 AM PDT Heparin Infusion per Pharmacy Management: Indication: ACS Dosing Wt: 83 kg Patient is on therapeutic hypothermia: No Date 02/11 02/11 02/11 Lab Time - 0940 1800 Anti Xa - 0.52 Bolus (units) 4000 Infusion Rate (units/kg/hr) 12 @ 0317 at [place] 11 Other anticoagulation: Date Note 02/11 Pt is a transfer from [facility] and heparin infusion & bolus were started there. It was running at 12 units/kg/hr using 79.3 kg at [place]. No initial bolus here. Ordered anti-Xa to be ~6hours after heparin started at [place]. documented in this encounter H&P Notes Eufemia Way MD - 02/11/2021 1:13 PM PDT Images from the original note were not included. Preprocedure History and Physical Indication for procedure: There were no encounter diagnoses. Relevant past medical/surgical history: Past Surgical History: Procedure Laterality Date COLON SURGERY colonoscopy FRACTURE SURGERY KNEE SURGERY GA CYSTO/URETERO W/LITHOTRIPSY &INDWELL STENT INSRT Left 01/14/2018 Procedure: CYSTOSCOPY, LEFT URETEROSCOPY, LASER LITHOTRIPSY, LEFT STENT PLACEMENT; Surgeon: SandraJ. Ilda MD; Location: [facility]; Service: Urology WRIST SURGERY . Past Medical History: Diagnosis Date Asthma none for 20 years-air particulate sensitivity Coronary artery disease involving belkofski coronary artery of belkofski heart without angina pectoris 09/28/2018 Diabetes mellitus (CMS/HCC) average BS am 130-140 Essential hypertension 09/28/2018 Herpes keratitis Kidney stone Current medications: Current Facility-Administered Medications: aspirin EC tablet 81 mg, 81 mg, oral, Daily, Shellie Morin MD, 81 mg at 02/11/21 0927 atorvastatin (LIPITOR) tablet 40 mg, 40 mg, oral, Nightly, Shellie Morin MD dextrose 50 % in water (D50W) g injection 12.5-50 g, 12.5-50 g, intravenous, PRN, Shellie Morin MD diphenhydrAMINE (BENADRYL) injection 12.5-25 mg, 12.5-25 mg, intravenous, Once, Eufemia Way MD fentaNYL (SUBLIMAZE) 50 mcg/mL injection - ADS Override Pull, , , , fentaNYL (SUBLIMAZE) 50 mcg/mL injection - ADS Override Pull, , , , fentaNYL (SUBLIMAZE) injection, , intravenous, Code/trauma/sedation med, Eufemia Way MD, 100 mcg at 02/11/21 1256 heparin (porcine) in NaCl (PF) 1,000 unit/500 mL infusion - ADS Override Pull, , , , heparin (porcine) in NS 10,000 unit/1,000 mL - ADS Override Pull, , , , heparin (porcine) injection 2,000-5,000 Units, 2,000-5,000 Units, intravenous, q6h PRN, Shellie Morin MD heparin 25,000 units in 500 mL 0.45% NS (premix), 11 Units/kg/hr (Order- Specific), intravenous, Titrated, Amber Puri, PharmD, Last Rate: 18.26 mL/hr at 02/11/21 1145, 11 Units/kg/hr at 02/11/21 1145 Insert peripheral IV, , , Once AND lidocaine (XYLOCAINE) 10 mg/mL (1 %) injection 1 mL, 1 mL, infiltration, Once PRN AND Maintain IV access, , , Until discontinued AND Saline lock IV, , ,Once AND sodium chloride 0.9 % flush 10 mL, 10 mL, intravenous, PRN, Shellie Morin MD Insert peripheral IV, , , Once AND lidocaine (XYLOCAINE) 10 mg/mL (1 %) injection 1 mL, 1 mL, infiltration, Once PRN AND Maintain IV access, , , Until discontinued AND Saline lock IV, , ,Once AND sodium chloride 0.9 % flush 10 mL, 10 mL, intravenous, PRN, Eufemia Way MD LORazepam (ATIVAN) injection 0.5 mg, 0.5 mg, intravenous, Once, Eufemia Way MD metoprolol succinate XL (TOPROL-XL) 24 hr tablet 50 mg, 50 mg, oral, q AM, Shellie Morin MD, 50 mg at 02/11/21 0927 midazolam (VERSED) 1 mg/mL injection - ADS Override Pull, , , , midazolam (VERSED) injection, , intravenous, Code/trauma/sedation med, Eufemia Way MD, 2 mg at 02/11/21 1256 naloxone (NARCAN) injection 0.04 mg, 0.04 mg, intravenous, PRN, Shellie Morin MD nitroglycerin (NITROSTAT) SL tablet 0.4 mg, 0.4 mg, sublingual, q5 min PRN, Eufemia Way MD REGULAR INSULIN (HumuLIN R) injection 0-6 Units, 0-6 Units, subcutaneous, q6h, Shellie Morin MD,2 Units at 02/11/21 0616 sodium chloride (NS) 0.9 % infusion, 100 mL/hr, intravenous, Continuous, Eufemia Way MD Relevant family history: Non-contributory Relevant review of systems: Non-contributory Allergies: Patient has no known allergies. Relevant Labs: Lab Results Component Value Date CREATININE 0.81 06/24/2018 EGFR 91 06/24/2018 INR 1.0 06/22/2018 Directed physical examination: Alert/Oriented: Normal HEENT: Normal Chest/Lungs: Normal Heart: Normal Abdomen: Normal Mallampati: II (hard and soft palate, upper portion of tonsils anduvula visible) ASA Score: ASA 3 - Patient with moderate systemic disease with functional limitations Eufemia Franks MD - 02/11/2021 11:32 AM PDT CARDIOLOGY CONSULTATION REQUESTING PHYSICIAN: REASON FOR CONSULTATION: DATE OF SERVICE: Patient ID: Braden Martin is a 71 y.o. male that is referred for chest pain HPI: Patient is a 71-year-old man with history of coronary artery disease status post cardiac catheterization in 2018 for non-STEMI found to have chronic total occlusion of nondominant circumflex and 80% nonintervenable diagonal lesion in the setting of multiple CAD risk factors including diabetes, hypertension and hyperlipidemia. Patient presents with 3 out of 10 chest pain, dizziness sweating clamping nausea vomiting. His chest pain was all across his chest and radiating into both shoulders. He was at rest when it started but was under significant stress because his 93-year-old mom resides in assisted living facility without air conditioning. He was very concerned about her health during the heatwave. He is currently reporting ongoing 1 out of 10 chest pain localized in the lower sternal border. Hisevaluation at [facility] in occluded abnormal troponin I at 0.268. Subsequent troponin T was 0.084. EKG is unchanged and demonstrates old left bundle branch block. Past Medical History: Diagnosis Date ??? Asthma none for 20 years-air particulate sensitivity ??? Coronary artery disease involving belkofski coronary artery of belkofski heart without angina pectoris09/28/2018 ??? Diabetes mellitus ([facility]) average BS am 130-140 ??? Essential hypertension 09/28/2018 ??? Herpes keratitis ??? Kidney stone Past Surgical History: Procedure Laterality Date ??? COLON SURGERY colonoscopy ??? FRACTURE SURGERY ??? KNEE SURGERY ??? GA CYSTO/URETERO W/LITHOTRIPSY &INDWELL STENT INSRT Left 01/14/2018 Procedure: CYSTOSCOPY, LEFT URETEROSCOPY, LASER LITHOTRIPSY, LEFT STENT PLACEMENT; Surgeon: SandraJ. Ilda MD; Location: [facility] OR; Service: Urology ??? WRIST SURGERY Social History Socioeconomic History ??? Marital status: Spouse name: Not on file ??? Number of children: Not on file ??? Years of education: Not on file ??? Highest education level: Not on file Tobacco Use ??? Smoking status: Never Smoker ??? Smokeless tobacco: Never Used Substance and Sexual Activity ??? Alcohol use: Yes Alcohol/week: 3.0 standard drinks Types: 3 Standard drinks or equivalent per week Comment: 1-3 drinks weekly ??? Drug use: No ??? Sexual activity: Defer Family History Problem Relation Age of Onset ??? Cancer Mother's Sister ??? Cancer Mother's Brother ??? Cancer Cousin ??? Coronary artery disease Father ROS Anxiety, cp and nausea As detailed in HPI; otherwise 10 point ROS is negative No Known Allergies Current Medication List Sig aspirin 81 mg EC tablet Take 81 mg by mouth daily atorvastatin (LIPITOR) 10 mg tablet TAKE 1 TABLET BY MOUTH NIGHTLY atorvastatin (LIPITOR) 20 mg tablet Take 1 tablet (20 mg total) by mouth nightly cholecalciferol, vitamin D3, (VITAMIN D3) 1,000 unit capsule Take 1,000 Units by mouth daily coenzyme Q10 (CO Q-10) 100 mg capsule Take 400 mg by mouth daily diphenhydramine HCl (ALLERGY ORAL) Take by mouth as needed fluorouracil (EFUDEX) 5 % cream APPLY TO SUN DAMAGED SKIN BID FOR 30 DAYS lisinopriL (PRINIVIL) 5 mg tablet Take 1 tablet (5 mg total) by mouth daily loratadine 10 mg capsule Take 10 mg by mouth daily as needed metFORMIN (GLUCOPHAGE) 500 mg tablet Take 500 mg by mouth 2 (two) times a day metoprolol succinate XL (TOPROL-XL) 50 mg 24 hr tablet Take 1 tablet (50 mg total) by mouth every morning multivitamin capsule Take 1 capsule by mouth daily nitroglycerin (NITROSTAT) 0.[address] 1 tablet (0.4 mg total) under the tongue every 5 (five) minutes as needed for chest pain Facility-Administered Medications Sig aspirin EC tablet 81 mg 81 mg, oral, Daily atorvastatin (LIPITOR) tablet 40 mg 40 mg, oral, Nightly dextrose 50 % in water (D50W) g injection 12.5-50 g 12.5-50 g, intravenous, As needed, For blood glucose less than 50 if the patient is NPO and/or non- responsive and an IV is in place.

Check BG every 15 minutes and repeat rescue therapy until BG greater than 100 ml/dL.
If BG less than 50 mg/dL OR hypoglycemia persists at 40 min, notify provider STAT to evaluate.

Once BG greater than 100 ml/dL, re-check BG in 1 hr to detect recurrent hypoglycemia.
Notify Provider of hypoglycemic incident and document hypoglycemia management. heparin (porcine) injection 2,000-5,000 Units 2,000-5,000 Units, intravenous, Every 6 hours PRN, Administer per heparin protocol and Heparin Anti-Xa Unfractionated results. heparin 25,000 units in 500 mL 0.45% NS (premix) 11 Units/kg/hr (913 Units/hr), intravenous, Titrated @ 18.26 mL/hr, If patient weight greater than 83 kg, use a dosing weight of 83 kg for entire infusion. lidocaine (XYLOCAINE) 10 mg/mL (1 %) injection 1 mL 1 mL, infiltration, Once as needed Linked Group 1: And Linked Group Details metoprolol succinate XL (TOPROL-XL) 24 hr tablet 50 mg 50 mg, oral, Every morning naloxone (NARCAN) injection 0.04 mg 0.04 mg, intravenous, As needed, Every 1 Minute PRN For Opiate Reversal
1. Draw up 0.4 mg (1 mL) in 10 mL syringe, and dilute with 9 mL of saline for an naloxone concentration of 0.04 mg/mL.
2. Give 0.04 mg (1 mL) IV push flushing solution into vein and repeat every min until resp rate greater than 10 per min and level of sedation improved.
3. Notify Provider STAT. REGULAR INSULIN (HumuLIN R) injection 0-6 Units 0-6 Units, subcutaneous, Every 6 hours, Low Dose Correctional Insulin
Observe Hazardous Substance Precautions; Dispose of Product and Packagingin Black Waste Container sodium chloride 0.9 % flush 10 mL 10 mL, intravenous, As needed Linked Group 1: And Linked Group Details atorvastatin (LIPITOR) tablet 20 mg (Discontinued) 20 mg, oral, Nightly heparin (porcine) injection 4,150 Units (Discontinued) 4,150 Units, intravenous, Once, If patient weight greater than 83 kg, use a dosing weight of 83 kg for entire infusion. heparin 25,000 units in 500 mL 0.45% NS (premix) (Discontinued) 12 Units/kg/hr (1,005.6 Units/hr), intravenous, Titrated @ 20.1 mL/hr, If patient weight greater than 83 kg, use a dosing weight of 83 kg for entire infusion. lisinopriL (PRINIVIL) tablet 5 mg (Discontinued) 5 mg, oral, Daily BP (!) 144/80 (BP Location: Right arm, Patient Position: Semi-[place]'s) Pulse 64 Temp 36.5 ??C(97.7 ??F) (Oral) Resp 16 Ht 1.727 m Wt 83.8 kg SpO2 98% BMI 28.08 kg/m?? Intake/Output Summary (Last 24 hours) at 02/11/2021 1134 Last data filed at 02/11/2021 0927 Gross per 24 hour Intake ??? Output 675 ml Net -675 ml Physical Exam Constitutional WN WD in NAD Mouth/Throat No thrush Eyes No scleral icterus Neck Supple no lymphadenopathy and no carotid bruit Cardiovascular Normal s1 and s2, no m/r/g Pulmonary/Chest cta anteriorly Abdominal Soft + bs no HSM Musculoskeletal No obvious musculoskeletal abnormalities Vascular Intact radial pulses, carotid pulses Neurological No apparent focal neurologic findings Skin No rashes or lesions Patient Active Problem List Diagnosis ??? Ureteral stone ??? NSTEMI (non-ST elevated myocardial infarction) (CMS/HCC) ??? Coronary artery disease involving belkofski coronary artery of belkofski heart without angina pectoris ??? Essential hypertension ??? Hyperlipidemia ??? Diabetes mellitus type II, non insulin dependent (CMS/HCC) ??? LBBB (left bundle branch block) ??? Atypical chest pain LABORATORY AND RADIOLOGY REVIEW Results from last 7 days Lab Units 02/11/21 0601 WBC AUTO x10e3/uL 6.8 HEMOGLOBIN g/dL 13.7* HEMATOCRIT % 40.0* PLATELETS AUTO x10e3/uL 133* Results from last 7 days Lab Units 02/11/21 0940 02/11/21 0601 TROPONINT ug/L 0.134* 0.084* Assessment/Plan Echo 02/11/2021: Normal left ventricle size with ejection fraction 55%. Mild dyssynchronous contraction pattern, consistent with a conduction abnormality. Mild hypokinesis of mid inferior wall. ?? Mild aortic valve sclerosis. Mild mitral regurgitation. Comparison is made with the echocardiogram of 01/26/2019, there has been no significant change. ?? ekg old lbbb CXR -on personal review demonstrates clear lung awad, no cardiomegaly and no significant atherosclerotic plaque Assessment/Plan Comments: In summary patient is a 72-year-old man with hyperlipidemia (controlled as of September 2020), diabetes (controlled on oral hypoglycemic) and hypertension (controlled on 2 antihypertensive drugs). Patient has known coronary artery disease status post cath in 2018. It demonstrated occluded nondominant circumflex and 80% proximal first diagonal lesion not amenable to intervention. He is coming in with non-STEMI. EKG is uninterpretable due to old left bundle branch block. His pain responded favorably to 4 sublingual nitroglycerin. At this time he reports ongoing 1 out of 10 chest discomfort. Histroponin T peaked at 0.134. Broad differential diagnosis includes demand ischemia versus plaque rupture possibly triggered by combination of anxiety and or heat wave. Recommend cardiac cath and possible stent. Consent obtained and all questions were answered. Electronically signed by Eufemia Way MD 02/11/2021 11:34 AM Shellie Ann MD - 02/11/2021 5:53 AM PDT [facility]: HISTORY & PHYSICAL Patient Name: Braden Martin Date of : 1950 Age: 71 y.o. Code Status: Full Code Primary Care Physician: Eneida Gross Admitting Provider: Shellie Morin MD Attending Provider: Shellie Morin MD Admit Date: 02/11/2021 Date of Service: 02/11/2021 Hospital Day: 1 ASSESSMENT & PLAN Braden Martin is a 71 y.o. male with past medical history of CAD, type 2 diabetes mellitus, hypertension, and hyperlipidemia who was transferred from for NSTEMI management. NSTEMI, present on admission. Active. - Presents with chest pressure at rest, nitroresponsive - EKG demonstrates sinus rhythm with LBBB (similar to previous EKG), per ED physician at (no physical copy of EKG found) - Troponin I 0.0150-> 0.268 - CXR unremarkable - Started on heparin gtt - Continue ASA, atorvastatin, and metoprolol - Cardiology consulted, recommended transfer to [facility] for further management - Trend cardiac biomarkers - TTE ordered - Monitor telemetry - Keep NPO CAD, present on admission. Chronic and stable. - LHC from 06/23/2018 demonstrates minor disease of the LAD and RCA. Occluded small and nondominant circumflex artery. Severe 80% stenosis at the origin of the small first diagonal branch (this lesion is not amenable to PCI). EF 50% with middle third of the anterolateral wall and middle third of inferior wall hypokinesis. LVEDP is 24 mm Hg. - Continue home ASA, atorvastatin, and metoprolol Type 2 diabetes mellitus, present on admission. Chronic and stable. - Hold home metformin while inpatient - Started on ISS Hypertension, present on admission. Chronic and stable. - On home lisinopril - Continue home metoprolol Hyperlipidemia, present on admission. Chronic and stable. - Continue home statin VTE Prophylaxis: heparin gtt Code Status: Full code. Patient Status: Patient's expected length of stay: Less than 2 midnights. Patient is under Observation status due to severity of presenting symptoms, complexity of treatment plan, and risk of adverse event. Functional status prior to admission: Independent. Functional expectation at discharge (including NSOC): Independent. How will the patient get home from the hospital?: To be determined Are there any known barriers to discharge on admission?: None SUBJECTIVE No chief complaint on file. Source of History: The patient & chart review History of Present Illness Braden Martin is a 71 y.o. male with a past medical history notable for CAD, type 2 diabetes mellitus, hypertension, and hyperlipidemia who was transferred from for NSTEMI management. He states that yesterday afternoon, while he was sitting and watching TV, he suddenly developed chest pressure, 9/10 in severity, which prompted his arrival to . There, his VS were found to be stable. EKG (per ED physician at ) demonstrates sinus rhythm with LBBB (previously seen). Initial troponin I was found to be 0.015. Chest pain resolved after 3 doses of nitroglycerin. He was also given a dose of ASA 324 mg while there. Cardiology consulted and recommended repeating a troponin level, and if elevated transferring to [facility] for further care. Repeat troponin I was 0.268. Started on heparin gtt and transferred to [facility]. Review of Systems A comprehensive review of systems was conducted and found to be negative, except as above in the History of Present Illness. Allergies No Known Allergies Current Medications Medications Prior to Admission Medication Sig Dispense Refill Last Dose ??? aspirin 81 mg EC tablet Take 81 mg by mouth daily 02/11/2021 at Unknown time ??? atorvastatin (LIPITOR) 10 mg tablet TAKE 1 TABLET BY MOUTH NIGHTLY 90 tablet 0 02/10/2021 at Unknown time ??? atorvastatin (LIPITOR) 20 mg tablet Take 1 tablet (20 mg total) by mouth nightly 90 tablet 3 02/10/2021 at Unknown time ??? cholecalciferol, vitamin D3, (VITAMIN D3) 1,000 unit capsule Take 1,000 Units by mouth daily 02/10/2021 at Unknown time ??? coenzyme Q10 (CO Q-10) 100 mg capsule Take 400 mg by mouth daily 02/10/2021 at Unknown time ??? diphenhydramine HCl (ALLERGY ORAL) Take by mouth as needed 02/10/2021 at Unknown time ??? fluorouracil (EFUDEX) 5 % cream APPLY TO SUN DAMAGED SKIN BID FOR 30 DAYS 3 More than a month at Unknown time ??? lisinopriL (PRINIVIL) 5 mg tablet Take 1 tablet (5 mg total) by mouth daily 90 tablet 3 02/10/2021 at Unknown time ??? loratadine 10 mg capsule Take 10 mg by mouth daily as needed More than a month at Unknown time ??? metFORMIN (GLUCOPHAGE) 500 mg tablet Take 500 mg by mouth 2 (two) times a day 02/10/2021 at Unknown time ??? metoprolol succinate XL (TOPROL-XL) 50 mg 24 hr tablet Take 1 tablet (50 mg total) by mouth every morning 90 tablet 3 02/10/2021 at Unknown time ??? multivitamin capsule Take 1 capsule by mouth daily 02/10/2021 at Unknown time ??? nitroglycerin (NITROSTAT) 0.[address] 1 tablet (0.4 mg total) under the tongue every 5 (five) minutes as needed for chest pain 25 tablet 11 02/11/2021 at Unknown time Past Medical History Past Medical History: Diagnosis Date ??? Asthma none for 20 years-air particulate sensitivity ??? Coronary artery disease involving belkofski coronary artery of belkofski heart without angina pectoris09/28/2018 ??? Diabetes mellitus (CMS/HCC) average BS am 130-140 ??? Essential hypertension 09/28/2018 ??? Herpes keratitis ??? Kidney stone Past Surgical History Past Surgical History: Procedure Laterality Date ??? COLON SURGERY colonoscopy ??? FRACTURE SURGERY ??? KNEE SURGERY ??? GA CYSTO/URETERO W/LITHOTRIPSY &INDWELL STENT INSRT Left 01/14/2018 Procedure: CYSTOSCOPY, LEFT URETEROSCOPY, LASER LITHOTRIPSY, LEFT STENT PLACEMENT; Surgeon: SandraJ. Ilda MD; Location: [facility] OR; Service: Urology ??? WRIST SURGERY Family History family history includes Cancer in his cousin, mother's brother, and mother's sister; Coronary arterydisease in his father. Social History The patient reports that he has never smoked. He has never used smokeless tobacco. He reports current alcohol use of about 3.0 standard drinks of alcohol per week. He reports that he does not use drugs. Social History Social History Narrative ??? Not on file OBJECTIVE First recorded vitals: Temp: 36.6 ??C (97.9 ??F) - BP: 127/79 - Heart Rate: (!) 55 - Resp: 16 - SpO2: 99 % Most recent vitals: Temp: 36.6 ??C (97.9 ??F) - BP: 127/79 - Heart Rate: (!) 55 - Resp: 16 - SpO2: 99 % Physical Exam Vitals reviewed. Cardiovascular: Rate and Rhythm: Normal rate and regular rhythm. Pulses: Normal pulses. Heart sounds: No murmur heard. Pulmonary: Effort: Pulmonary effort is normal. Abdominal: General: Abdomen is flat. Bowel sounds are normal. Musculoskeletal: Cervical back: Normal range of motion. No rigidity. Skin: General: Skin is warm. Neurological: General: No focal deficit present. Mental Status: He is alert. Mental status is at baseline. LABS & DIAGNOSTICS Hematology: No lab exists for component: SEGSPCT, HCTRET Chemistries: No lab exists for component: ALKPHOS, IBILI CrCl cannot be calculated (Patient's most recent lab result is older than the maximum 7 days allowed.). IMAGING No results found. Electronically signed by: Shellie Morin MD 02/11/2021 5:53 AM Portions of today's documentation have been created with the assistance of voice recognition software. Therefore, it may contain anomalous punctuation, anomalous independent misrecognitions, word substitutions, insertions or omissions. Occasional wrong-word or phonetically similar substitutions may also occur, all due to the inherent limitations of voice recognition software. Attempts to correct the above have been made by Shellie Morin MD but it is recommended that the chart be read carefully to recognize, using context, where the substitutions may have occurred. documented in this encounter Consult Notes Eufemia Way MD - 02/11/2021 11:32 AM PDT CARDIOLOGY CONSULTATION REQUESTING PHYSICIAN: REASON FOR CONSULTATION: DATE OF SERVICE: Patient ID: Braden Martin is a 71 y.o. male that is referred for chest pain HPI: Patient is a 71-year-old man with history of coronary artery disease status post cardiac catheterization in 2018 for non-STEMI found to have chronic total occlusion of nondominant circumflex and 80% nonintervenable diagonal lesion in the setting of multiple CAD risk factors including diabetes, hypertension and hyperlipidemia. Patient presents with 3 out of 10 chest pain, dizziness sweating clamping nausea vomiting. His chest pain was all across his chest and radiating into both shoulders. He was at rest when it started but was under significant stress because his 93-year-old mom resides in assisted living facility without air conditioning. He was very concerned about her health during the heatwave. He is currently reporting ongoing 1 out of 10 chest pain localized in the lower sternal border. [facility] at [facility] in occluded abnormal troponin I at 0.268. Subsequent troponin T was 0.084. EKG is unchanged and demonstrates old left bundle branch block. Past Medical History: Diagnosis Date ??? Asthma none for 20 years-air particulate sensitivity ??? Coronary artery disease involving belkofski coronary artery of belkofski heart without angina pectoris09/28/2018 ??? Diabetes mellitus ([facility]) average BS am 130-140 ??? Essential hypertension 09/28/2018 ??? Herpes keratitis ??? Kidney stone Past Surgical History: Procedure Laterality Date ??? COLON SURGERY colonoscopy ??? FRACTURE SURGERY ??? KNEE SURGERY ??? GA CYSTO/URETERO W/LITHOTRIPSY &INDWELL STENT INSRT Left 01/14/2018 Procedure: CYSTOSCOPY, LEFT URETEROSCOPY, LASER LITHOTRIPSY, LEFT STENT PLACEMENT; Surgeon: SandraJ. Ilda MD; Location: [facility] OR; Service: Urology ??? WRIST SURGERY Social History Socioeconomic History ??? Marital status: Spouse name: Not on file ??? Number of children: Not on file ??? Years of education: Not on file ??? Highest education level: Not on file Tobacco Use ??? Smoking status: Never Smoker ??? Smokeless tobacco: Never Used Substance and Sexual Activity ??? Alcohol use: Yes Alcohol/week: 3.0 standard drinks Types: 3 Standard drinks or equivalent per week Comment: 1-3 drinks weekly ??? Drug use: No ??? Sexual activity: Defer Family History Problem Relation Age of Onset ??? Cancer Mother's Sister ??? Cancer Mother's Brother ??? Cancer Cousin ??? Coronary artery disease Father ROS Anxiety, cp and nausea As detailed in HPI; otherwise 10 point ROS is negative No Known Allergies Current Medication List Sig aspirin 81 mg EC tablet Take 81 mg by mouth daily atorvastatin (LIPITOR) 10 mg tablet TAKE 1 TABLET BY MOUTH NIGHTLY atorvastatin (LIPITOR) 20 mg tablet Take 1 tablet (20 mg total) by mouth nightly cholecalciferol, vitamin D3, (VITAMIN D3) 1,000 unit capsule Take 1,000 Units by mouth daily coenzyme Q10 (CO Q-10) 100 mg capsule Take 400 mg by mouth daily diphenhydramine HCl (ALLERGY ORAL) Take by mouth as needed fluorouracil (EFUDEX) 5 % cream APPLY TO SUN DAMAGED SKIN BID FOR 30 DAYS lisinopriL (PRINIVIL) 5 mg tablet Take 1 tablet (5 mg total) by mouth daily loratadine 10 mg capsule Take 10 mg by mouth daily as needed metFORMIN (GLUCOPHAGE) 500 mg tablet Take 500 mg by mouth 2 (two) times a day metoprolol succinate XL (TOPROL-XL) 50 mg 24 hr tablet Take 1 tablet (50 mg total) by mouth every morning multivitamin capsule Take 1 capsule by mouth daily nitroglycerin (NITROSTAT) 0.[address] 1 tablet (0.4 mg total) under the tongue every 5 (five) minutes as needed for chest pain Facility-Administered Medications Sig aspirin EC tablet 81 mg 81 mg, oral, Daily atorvastatin (LIPITOR) tablet 40 mg 40 mg, oral, Nightly dextrose 50 % in water (D50W) g injection 12.5-50 g 12.5-50 g, intravenous, As needed, For blood glucose less than 50 if the patient is NPO and/or non- responsive and an IV is in place.

Check BG every 15 minutes and repeat rescue therapy until BG greater than 100 ml/dL.
If BG less than 50 mg/dL OR hypoglycemia persists at 40 min, notify provider STAT to evaluate.

Once BG greater than 100 ml/dL, re-check BG in 1 hr to detect recurrent hypoglycemia.
Notify Provider of hypoglycemic incident and document hypoglycemia management. heparin (porcine) injection 2,000-5,000 Units 2,000-5,000 Units, intravenous, Every 6 hours PRN, Administer per heparin protocol and Heparin Anti-Xa Unfractionated results. heparin 25,000 units in 500 mL 0.45% NS (premix) 11 Units/kg/hr (913 Units/hr), intravenous, Titrated @ 18.26 mL/hr, If patient weight greater than 83 kg, use a dosing weight of 83 kg for entire infusion. lidocaine (XYLOCAINE) 10 mg/mL (1 %) injection 1 mL 1 mL, infiltration, Once as needed Linked Group 1: And Linked Group Details metoprolol succinate XL (TOPROL-XL) 24 hr tablet 50 mg 50 mg, oral, Every morning naloxone (NARCAN) injection 0.04 mg 0.04 mg, intravenous, As needed, Every 1 Minute PRN For Opiate Reversal
1. Draw up 0.4 mg (1 mL) in 10 mL syringe, and dilute with 9 mL of saline for an naloxone concentration of 0.04 mg/mL.
2. Give 0.04 mg (1 mL) IV push flushing solution into vein and repeat every min until resp rate greater than 10 per min and level of sedation improved.
3. Notify Provider STAT. REGULAR INSULIN (HumuLIN R) injection 0-6 Units 0-6 Units, subcutaneous, Every 6 hours, Low Dose Correctional Insulin
Observe Hazardous Substance Precautions; Dispose of Product and Packagingin Black Waste Container sodium chloride 0.9 % flush 10 mL 10 mL, intravenous, As needed Linked Group 1: And Linked Group Details atorvastatin (LIPITOR) tablet 20 mg (Discontinued) 20 mg, oral, Nightly heparin (porcine) injection 4,150 Units (Discontinued) 4,150 Units, intravenous, Once, If patient weight greater than 83 kg, use a dosing weight of 83 kg for entire infusion. heparin 25,000 units in 500 mL 0.45% NS (premix) (Discontinued) 12 Units/kg/hr (1,005.6 Units/hr), intravenous, Titrated @ 20.1 mL/hr, If patient weight greater than 83 kg, use a dosing weight of 83 kg for entire infusion. lisinopriL (PRINIVIL) tablet 5 mg (Discontinued) 5 mg, oral, Daily BP (!) 144/80 (BP Location: Right arm, Patient Position: Semi-[place]'s) Pulse 64 Temp 36.5 ??C(97.7 ??F) (Oral) Resp 16 Ht 1.727 m Wt 83.8 kg SpO2 98% BMI 28.08 kg/m?? Intake/Output Summary (Last 24 hours) at 02/11/2021 1134 Last data filed at 02/11/2021 0927 Gross per 24 hour Intake ??? Output 675 ml Net -675 ml Physical Exam Constitutional WN WD in NAD Mouth/Throat No thrush Eyes No scleral icterus Neck Supple no lymphadenopathy and no carotid bruit Cardiovascular Normal s1 and s2, no m/r/g Pulmonary/Chest cta anteriorly Abdominal Soft + bs no HSM Musculoskeletal No obvious musculoskeletal abnormalities Vascular Intact radial pulses, carotid pulses Neurological No apparent focal neurologic findings Skin No rashes or lesions Patient Active Problem List Diagnosis ??? Ureteral stone ??? NSTEMI (non-ST elevated myocardial infarction) (CMS/HCC) ??? Coronary artery disease involving belkofski coronary artery of belkofski heart without angina pectoris ??? Essential hypertension ??? Hyperlipidemia ??? Diabetes mellitus type II, non insulin dependent (CMS/HCC) ??? LBBB (left bundle branch block) ??? Atypical chest pain LABORATORY AND RADIOLOGY REVIEW Results from last 7 days Lab Units 02/11/21 0601 WBC AUTO x10e3/uL 6.8 HEMOGLOBIN g/dL 13.7* HEMATOCRIT % 40.0* PLATELETS AUTO x10e3/uL 133* Results from last 7 days Lab Units 02/11/21 0940 02/11/21 0601 TROPONINT ug/L 0.134* 0.084* Assessment/Plan Echo 02/11/2021: Normal left ventricle size with ejection fraction 55%. Mild dyssynchronous contraction pattern, consistent with a conduction abnormality. Mild hypokinesis of mid inferior wall. ?? Mild aortic valve sclerosis. Mild mitral regurgitation. Comparison is made with the echocardiogram of 01/26/2019, there has been no significant change. ?? ekg old lbbb CXR -on personal review demonstrates clear lung awad, no cardiomegaly and no significant atherosclerotic plaque Assessment/Plan Comments: In summary patient is a 72-year-old man with hyperlipidemia (controlled as of September 2020), diabetes (controlled on oral hypoglycemic) and hypertension (controlled on 2 antihypertensive drugs). Patient has known coronary artery disease status post cath in 2018. It demonstrated occluded nondominant circumflex and 80% proximal first diagonal lesion not amenable to intervention. He is coming in with non-STEMI. EKG is uninterpretable due to old left bundle branch block. His pain responded favorably to 4 sublingual nitroglycerin. At this time he reports ongoing 1 out of 10 chest discomfort. Histroponin T peaked at 0.134. Broad differential diagnosis includes demand ischemia versus plaque rupture possibly triggered by combination of anxiety and or heat wave. Recommend cardiac cath and possible stent. Consent obtained and all questions were answered. Electronically signed by Eufemia Way MD 02/11/2021 11:34 AM documented in this encounter Miscellaneous Notes Plan of Care - Jenny Olvera RN - 02/13/2021 10:29 AM PDT Identify possible barriers to meeting goals/advancing plan of care: none End of Shift/ Care Plan Summary: VSS, tele SR; a/o x 4; denies pain; R groin site bruised but non-tender; independent Pt discharged home in stable condition via POV driven by spouse with all belongings including home nitroglycerin; PIV x 1 and tele removed. Discharge instructions reviewed included medication adjustments, groin site care and precautions, when to follow up with provider, and when to call 911; pt stated that they had no further questions. Pt walked to vehicle, escorted by staff, without incident. Problem: Cardiovascular - Adult Goal: Maintains optimal cardiac output and hemodynamic stability Outcome: Adequate for Discharge Goal: Absence of cardiac dysrhythmias or at baseline Outcome: Adequate for Discharge lan of Pushpa Patterson - 02/13/2021 7:19 AM PDT Problem: Pain - Adult Goal: Verbalizes/displays adequate comfort level or baseline comfort level 02/13/2021 0558 by Pushpa Morris Outcome: Progressing Flowsheets (Taken 02/13/2021 0558) Addressed this shift: Verbalizes/displays adequate comfort level or baseline comfort level: ??? Encourage patient to monitor pain and request assistance ??? Assess pain using appropriate pain scale ??? Administer analgesics based on type and severity of pain and evaluate response ??? Implement non-pharmacological measures as appropriate and evaluate response ??? Consider cultural and social influences on pain and pain management ??? Notify Licensed Independent Practitioner if interventions unsuccessful or patient reports new pain Note: Pt denied chest pain. Pt denied pain at groin access site. 02/13/2021 0557 by Pushpa Morris Outcome: Progressing Identify possible barriers to meeting goals/advancing plan of care: pt has bruising around groin site that can be tender to touch End of Shift/ Care Plan Summary: A&Ox4 VSS Pt tolerated RA Pt denied pain Tele SR Groin site soft nontender, no change. Pt denies chest pain independent lan of Amber Alas RN - 02/12/2021 6:40 PM PDTSummary: RN Shift Note End of Shift/ Care Plan Summary: Pt today unfortunately was not discharged due to sudden decrease inplatelets to 59. Although afternoon redraw was up to 132. MD still wants to keep pt overnight to evaluate for HIT and make sure pt is stable prior to discharging on antiplatelelt therapyt for recent stent placement. R groin site soft and nontender, there is some ecchymosis. VSS, continue to monitor. Amber Henry RN Problem: Pain - Adult Goal: Verbalizes/displays adequate comfort level or baseline comfort level Outcome: Progressing Problem: Infection - Adult Goal: Absence of infection during hospitalization Outcome: Progressing Problem: Safety Adult - Fall Goal: Free from fall injury Outcome: Progressing Problem: Discharge Planning Goal: Discharge to home or other facility with appropriate resources Outcome: Progressing Problem: Cardiovascular - Adult Goal: Maintains optimal cardiac output and hemodynamic stability Outcome: Progressing Goal: Absence of cardiac dysrhythmias or at baseline Outcome: Progressing lan of Fili - Ashanti Timmons RN - 02/12/2021 1:48 AM PDT Identify possible barriers to meeting goals/advancing plan of care: End of Shift/ Care Plan Summary: Pt A/Ox4. VSS on RA. Pt c/o tenderness in his right groin, Tylenol given with good effect. Dressing on R groin C/D/I, scant amount of sanguinous drainage that is unchanged since shift exchange. NSR with PACs on tele. Independent with ambulation. Anticipating discharge today. Care continues. Problem: Pain - Adult Goal: Verbalizes/displays adequate comfort level or baseline comfort level Outcome: Progressing Problem: Cardiovascular - Adult Goal: Maintains optimal cardiac output and hemodynamic stability Outcome: Progressing lan of Kerry Dimas RN - 02/11/2021 6:38 PM PDT Problem: Cardiovascular - Adult Goal: Maintains optimal cardiac output and hemodynamic stability Flowsheets (Taken 02/11/2021 1778) Addressed this shift: Maintain optimal cardiac output and hemodynamic stability: Monitor vital signs, rhythm, and trends Monitor for bleeding, hypotension and signs of decreased cardiac output Administer and titrate ordered vasoactive medications to optimize hemodynamic stability Monitor arterial and/or venous puncture sites for bleeding and/or hematoma Assess quality of pulses, skin color and temperature Assess for signs of decreased coronary artery perfusion - ex. 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 End of Shift/ Care Plan Summary: Stent to RCA per report. Right groin site angioseal. Dressing is C/D/I, scant amount of sanguinous drainage noted that is unchanged since arrival back to unit. Area just medial to insertion site does note some firmness -- anatomy compared to other groin site with firmness also noted in similar region. Reports mild tenderness. Off bedrest at 1800 without complication. Shift Summary Robin is alert and oriented x4, NASH, off bedrest at 1800 tolerating activity well after stent to RCA.He is afebrile and he denies pain. Tele is NSR in the 60s with PACs, BP WNL. SPO2 WNL on RA. Denies SOB. No n/v/d/c or abdominal pain, heart healthy/ADA diet. Voiding and stooling without complication. NS at 100mls/hour until 1800 per [facility] report, now PIV SL x2. ost- Procedure Note - Yadira Valles MD - 02/11/2021 1:34 PM PDT Special Imaging Postprocedure Note Braden Martin Physician: Yadira Valles MD Set Up Inspector: None Diagnosis: There were no encounter diagnoses. Procedure: 1.. Coronary angiogram by Dr Way 2. Stent by Dr Borden Complications: None Stents/Grafts/Implant: no Blood Product Administration: no If yes, see Blood Administration Record Estimated Blood Loss: minimal Anesthesia: no Specimens Removed: no 02/11/2021 1:34 PM Post-Procedure Note - Eufemia Way MD - 02/11/2021 1:13 PM PDT Special Imaging Postprocedure Note Braden Martin Physician: Eufemia Way MD Set Up Inspector: None Diagnosis: There were no encounter diagnoses. Procedure: Complications: None Stents/Grafts/Implant: yes (please see Dr. Borden's note for details) Blood Product Administration: no If yes, see Blood Administration Record Estimated Blood Loss: minimal Anesthesia: yes Specimens Removed: no CONTRAST: 50 ml FLUORO TIME: 1.3 min METHOD: Manifold and hand injection was used. RESULTS: Lm is a long vessel which gives rise to LAD only. LCX had been found to be occluded during 2018 angiogram, and remains occluded ostially today LAD is a medium caliber vessel which gives rise to a medium D1 with 80% ostial lesion, medium bifurcating D2 and small D3. RCA is a large dominant vessel, which gives rise to a large PDA and PL branch. 90% distal RCA stenosis is present. RCA is fed via L-R collaterals. Groin shot- right bag machine set up operator gives rise to SFA and Profunda femoris. There is no stenosis present. Sheath enters right [employer] at the 50th percentile hallie of the femoral head. No contrast extravasation or dissection 02/11/2021 1:13 PM Initial Assessments - Elin Chen MSW - 02/11/2021 10:31 AM PDT CASE MANAGEMENT : INITIAL ASSESSMENT Data: Per EMR review, patient is a 71 y.o. male with Payor: MEDICARE / Plan: MEDICARE PART A AND B /Product Type: *No Product type* / . PCP is Eneida Gross. Advance directives are completed- Requested Copy for Chart. Pt admitted on 02/11/2021 for NSTEMI (non-ST elevated myocardial infarction) (CMS/HCC) [I21.4]. Extended Emergency Contact Information Primary Emergency Contact: Naila Martin Address: [address] [place] [address] [facility] Relation: Spouse In communication with provider, discharge needs have not been identified. Social Work consults to coordinate discharge services have not been ordered by provider at this time. DISTRICT ASSOCIATE JUDGE met with patient and family at bedside. Social work role explained, contact information and discharge planning checklist provided. Pt resides in [place] with his spouse in a private home. Pt does not have a history with home health and/or nursing home services. Pt resides with is independent at baseline in all areas and is not anticapating any change in that upon DC. Pt has had cardiac rehabd but no SNF, HH etc Assessment: alert and oriented x4. Per DISTRICT ASSOCIATE JUDGE interactions, Physician Documentation, and Nursing Documentation, patient has capacity for self care and has decisional capacity at this time. Plan: DC home with no needs anticipated JUSTIN Cyr LICASW 02/11/21 1030 Discharge Planning Is there a Discharge Planning order? No Chart Reviewed Yes Source of Information Patient;Chart Initial DC Planning Assessment Yes Lives with Spouse/significant other Support Systems Spouse/significant other Level of [place] Independent in all regards Assistance Needed None Living Arrangements Private residence Home Layout One level Home Care Services No Patient expects to be discharged to: HOME Has a discharge transport plan been identified? Yes Who will transport you at time of discharge? Spouse Barriers to Discharge No barriers Insurance Coverage Prescription Drug Coverage Patient has prescription drug coverage Are you currenty receiving any VA benefits? No Do you currenty have [employer] insurance? No Anticipated Discharge Needs Anticipated Discharge Needs None needed Anticipated Discharge Destination Home with family Who can help/be your primary caregiver at discharge? Family lan of Care - Harris Arias - 02/11/2021 5:33 AM PDT Identify possible barriers to meeting goals/advancing plan of care: NSTEMI End of Shift/ Care Plan Summary: Assumed pt's care at ~0500 Bedside handoff and safety check completed, found patient waling to bed from bathroom. Whiteboard updated, allergies reviewed. Bed low and locked, call light in reach. Careand hourly monitoring ongoing. Admit Date: 02/11/2021 Code: Prior Isolation: No active isolations Neuro: A+O x 4 Infection: Afebrile Pain: Denies HEENT: Impaired vision Resp: WDL Cardio: SB Skin: WDL MSK: WDL GI: WDL : WDL Access/Gtt: PIV x 1 Hep drip 12 units Psychosocial: WDL Hematologic: Labs monitored; no critical values reported Problem: Pain - Adult Goal: Verbalizes/displays adequate comfort level or baseline comfort level Outcome: Progressing Problem: Infection - Adult Goal: Absence of infection during hospitalization Outcome: Progressing Problem: Safety Adult - Fall Goal: Free from fall injury Outcome: Progressing Problem: Discharge Planning Goal: Discharge to home or other facility with appropriate resources Outcome: Progressing documented in this encounter Plan of Treatment Upcoming Encounters Date Type Specialty Care Team Description 03/20/2021 Office Visit Cardiology Tyrese Castrejon MD [address] [place] [address] Scheduled Orders Name Type Priority Associated Diagnoses Order S chedule ECG 12 lead ECG STAT Once for 1 Occu rrences starting 02/11/2021 unti l 02/11/2021 Scheduled Referrals Name Type Priority Associated Order Schedule Diagnoses Ambulatory Referral to Outpatient Routine NSTEMI (non-ST 1 O ccurrences Cardiac Rehabilitation Referral elevated start ing myocardial 02/11/2021 unti l infarction) 08/13/2021 ([facility]) documented as of this encounter Implants Implanted Type Area [employer] Inspector Device Shelf Model / Identifier Expiration Date Ser ial / Lot Stent, Universa 6fr*26cm [facility] - [id number] - [id number] Stent Left: COOK 10/23/2020 [id number] / Implanted: Qty: 1 on 01/14/2018 by Pippa Rivas MD at [facility] Ureter [id number] / [id number] Stent Xience Linda 3.0*12 - [id number] [place] [id number] / Implanted: Qty: 1 on 02/11/2021 at [facility] / documented as of this encounter Procedures Procedure Name Priority Date/Time Associated Comments Diagnosis POCT GLUCOSE Routine 02/13/2021 8:54 Results for this AM PDT procedure are i n the results section. DISCHARGE PATIENT Routine 02/13/2021 8:48 AM PDT COMPLETE BLOOD COUNT Routine 02/13/2021 4:38 Res ults for this WITH DIFF RESULT AM PDT procedure a re in the results section. COMPLETE BLOOD COUNT Routine 02/13/2021 4:38 Res ults for this WITH DIFF AM PDT procedure are i n the results section. COMPREHENSIVE METABOLIC Routine 02/13/2021 4:38 Results for this PANEL AM PDT procedure are i n the results section. HEMOGLOBIN A1C Add-On 02/13/2021 4:33 Results f or this AM PDT procedure are i n the results section. POCT GLUCOSE Routine 02/12/2021 8:01 Results for this PM PDT procedure are i n the results section. POCT GLUCOSE Routine 02/12/2021 5:23 Results for this PM PDT procedure are i n the results section. EXTRA TUBES Routine 02/12/2021 1:59 Results for this PM PDT procedure are i n the results section. PST - LIHEPARIN Routine 02/12/2021 1:59 Results for this PM PDT procedure are i n the results section. COMPLETE BLOOD COUNT Routine 02/12/2021 1:53 Res ults for this PM PDT procedure are i n the results section. POCT GLUCOSE Routine 02/12/2021 12:17 Results for this PM PDT procedure are i n the results section. POCT GLUCOSE Routine 02/12/2021 8:28 Results for this AM PDT procedure are i n the results section. COMPREHENSIVE METABOLIC Routine 02/12/2021 6:51 Results for this PANEL AM PDT procedure are i n the results section. COMPLETE BLOOD COUNT Routine 02/12/2021 5:53 Res ults for this WITH DIFF RESULT AM PDT procedure a re in the results section. COMPLETE BLOOD COUNT Routine 02/12/2021 5:53 Res ults for this WITH DIFF AM PDT procedure are i n the results section. LIPOPROTEIN (A) Routine 02/12/2021 5:52 Results for this AM PDT procedure are i n the results section. POCT GLUCOSE Routine 02/12/2021 12:09 Results for this AM PDT procedure are i n the results section. TROPONIN Timed 02/11/2021 6:34 Results for this PM PDT procedure are i n the results section. CK AND CK-MB Timed 02/11/2021 6:34 Results for this PM PDT procedure are i n the results section. POCT GLUCOSE Routine 02/11/2021 2:08 Results for this PM PDT procedure are i n the results section. ECG 12-LEAD STAT 02/11/2021 1:59 Results for this PM PDT procedure are i n the results section. SI LEFT HEART CATH Routine 02/11/2021 1:32 Resul ts for this PM PDT procedure are i n the results section. SI STENT AIDE - CORONARY Routine 02/11/2021 1:32 Results for this PM PDT procedure are i n the results section. POCT GLUCOSE Routine 02/11/2021 12:14 Results for this PM PDT procedure are i n the results section. EXTRA TUBES Routine 02/11/2021 10:29 Results for this AM PDT procedure are i n the results section. LAVENDER TOP Routine 02/11/2021 10:29 Results for this AM PDT procedure are i n the results section. HEPARIN ANTI-XA (UFH) Timed 02/11/2021 9:40 Re sults for this UNFRACTIONATED AM PDT procedure are in the results section. TROPONIN Timed 02/11/2021 9:40 Results for this AM PDT procedure are i n the results section. CK AND CK-MB Timed 02/11/2021 9:40 Results for this AM PDT procedure are i n the results section. ECHOCARDIOGRAM COMPLETE Routine 02/11/2021 9:01 Results for this AM PDT procedure are i n the results section. ECG 12-LEAD STAT 02/11/2021 8:10 Results for this AM PDT procedure are i n the results section. POCT GLUCOSE Routine 02/11/2021 6:09 Results for this AM PDT procedure are i n the results section. COMPLETE BLOOD COUNT Routine 02/11/2021 6:01 Res ults for this WITH DIFF RESULT AM PDT procedure a re in the results section. HEPARIN INDUCED Routine 02/11/2021 6:01 Results for this PLATELET AUTOANTIBODY AM PDT proced ure are in the results section. COMPLETE BLOOD COUNT Routine 02/11/2021 6:01 Res ults for this WITH DIFF AM PDT procedure are i n the results section. TROPONIN Timed 02/11/2021 6:01 Results for this AM PDT procedure are i n the results section. CK AND CK-MB Timed 02/11/2021 6:01 Results for this AM PDT procedure are i n the results section. TELEMETRY EXTERNAL 02/11/2021 Results f or this RESULTS procedure are i n the results section. ECG EXTERNAL RESULTS 02/11/2021 Results for this procedure are i n the results section. XR EXTERNAL RESULTS 02/11/2021 Results for this procedure are i n the results section. documented in this encounter Results POCT glucose (02/13/2021 8:54 AM PDT) POCT Glucose, 175 (A) 65 - 99 mg/dL [facility] POCT (CLIA [id number]) POCT Glucose Test Note: Reference [facility] Comment Ranges revised HOSPITAL POCT July 12, (CLIA [id number]) 2018. Specimen Blood - Capillary blood (substance) Performing Organization Address City/State/ZIP Code Phon e Number [facility] [address] [facility] [place] [address] POCT (CLIA [id number]) Complete blood count with diff (02/13/2021 4:38 AM PDT) Pathologist Sig nature WBC Auto 6.9 3.8 - 10.1 [facility] x10e3/uL [facility] RBC 4.60 4.40 - 5.80 [facility] x10e6/uL [facility] Hemoglobin 14.6 13.8 - 17.2 [facility] g/dL [facility] Hematocrit 43.0 41.0 - 50.0 % [facility] MCV 94 81 - 100 [facility] MCH 31.7 27.0 - 35.0 pg [facility] MCHC 34.0 32.0 - 37.0 [facility] g/dL [facility] RDW 12.3 12.3 - 15.4 % [facility] Platelets 129 (L) 150 - 400 [facility] x10e3/uL [facility] MPV 10.5 (H) 7.4 - 10.4 [facility] NRBC % 0 0 /100 WBCs [facility] Abs. NRBC 0.0 x10e3/uL [facility] % Neutrophils 46 % [facility] % Lymphocytes 41 % [facility] % Monocytes 10 % [facility] % Eosinophils 2 % [facility] % Basophils 1 % [facility] Abs. Neutrophils 3.2 1.6 - 6.9 [facility] x10e3/uL [facility] Abs. Lymphocytes 2.9 1.1 - 4.8 [facility] x10e3/uL [facility] Abs. Monocytes 0.7 0.0 - 1.0 [facility] x10e3/uL [facility] Abs. Eosinophils 0.1 0.0 - 0.5 [facility] x10e3/uL [facility] Abs. Basophils 0.0 0.0 - 0.4 [place] [id number] Abs. Neutrophils 3,200.0 1,600.0-6,900.0 [facility] (Auto) [facility] Specimen Blood - Venous blood (substance) Performing Organization Address City/State/ZIP Code Phon e Number [facility] [address] [facility] [place] [address] Comprehensive Metabolic Panel (02/13/2021 4:38 AM PDT) Pathologist Sig nature Sodium 135 134 - 144 mmol/L [facility] Potassium 4.2 3.5 - 5.2 mmol/L [facility] Chloride 102 97 - 108 mmol/L [facility] CO2 21 18 - 29 mmol/L [facility] Anion Gap 12 (H) 3 - 11 mmol/L [facility] BUN 15.0 8.0 - 27.0 mg/dL [facility] Creatinine 0.87 0.76 - 1.27 [facility] mg/dL [facility] Glucose, Serum 175 (H) 65 - 99 mg/dL [facility] Calcium 8.9 8.5 - 10.1 mg/dL [facility] AST 33 0 - 50 U/L [facility] ALT 32 0 - 44 U/L [facility] Alkaline Phosphatase 59 25 - 160 U/L [facility] Total Protein 6.2 (L) 6.4 - 8.4 g/dL [facility] eGFR (CKD-EPI) 86 >60 (CKD-EPI) [facility] mL/min/1.73 m2 [facility] Albumin 3.8 3.4 - 5.0 g/dL [facility] Bilirubin, Total 0.6 <=1.2 mg/dL [facility] BUN/Creatinine Ratio 17.2 7.0 - 24.0 [facility] Specimen Blood - Venous blood (substance) Performing Organization Address [facility] Soni Sow [facility] [address] [facility] [place] [address] Hemoglobin A1c (02/13/2021 4:33 AM PDT) Hemoglobin A1c 8.1 (H) 4.8 - 5.6 % [facility] Estimated 186 No Reference [facility] Average Glucose Range Established HOSPITAL LAB (eAG) mg/dL Hemoglobin A1C See Below [facility] Comment Comment: HOSPITAL LAB Reference Ranges: Normal: 4.8% to 5.6% Prediabetes: 5.7% to 6.4% Diabetes: 6.5% or higher Glycemic control for adults with diabetes: greater humberto n 7.0% (DCCT/NGSP) 2010 [place] [employer]'s Summary of Glycemic Recommendations for Adults with Diabetes: Hemoglobin A1c <7.0%. ?? For selected individual patients, providers might reasonably suggest even l ower A1c goals than the gene ral goal of <7%, if this can be achieved without significant hypoglycemia or other adverse effects of treatment. Such patients might include those with short duration of d iabetes, long life expectanc y, and no significant CVD. Conversely, less- stringent A1c goals than the general goal of <7% may be appropriate for patients with a history of severe hypoglycemia, limited life expectancy, advanced m icrovascular or macrovascular complications, and extensive comorbid conditions and those with longstanding diabetes in whom the general goal is difficult to attain. Source: [place] [employer] Summary of revisions for the 2010 Clinical Practice Recommendations. Diabetes Care. 2009 33(suppl 1): S3 PubMed [id number] Specimen Blood - Venous blood (substance) Performing Organization Address [facility] ana Sow [facility] [address] [facility] [place] [address] POCT glucose (02/12/2021 8:01 PM PDT) POCT Glucose, 163 (A) 65 - 99 mg/dL [facility] POCT (CLIA [id number]) POCT Glucose Test Note: Reference [facility] Comment Ranges revised HOSPITAL POCT July 12, (CLIA [id number]) 2018. Specimen Blood - Capillary blood (substance) Performing Organization Address [facility] Phon e Number [facility] [address] [facility] [place] [address] POCT (CLIA [id number]) POCT glucose PRN (02/12/2021 5:23 PM PDT) POCT Glucose, 146 (A) 65 - 99 mg/dL [facility] POCT (CLIA [id number]) POCT Glucose Test Note: Reference [facility] Comment Ranges revised HOSPITAL POCT July 12 (CLIA [id number]) 2018. Specimen Blood - Capillary blood (substance) Performing Organization Address [facility] Phon e Number [place] [id number] [facility] [place] [address] POCT (CLIA [id number]) Hold Green Top - PST LiHeparin (02/12/2021 1:59 PM PDT) Pathologist Sig nature Extra Tube Hold for [facility] add-ons.Comment: LAB Auto resulted. Specimen Blood - Venous blood (substance) Performing Organization Address [facility] [address] [facility] A [id number] Complete blood count (02/12/2021 1:53 PM PDT) Pathologist Sig nature WBC Auto 6.4 3.8 - 10.1 x10e3/uL [facility]OS[facility] L LAB RBC 4.63 4.40 - 5.80 x10e6/uL [facility] LAB Hemoglobin 14.6 13.8 - 17.2 g/dL [facility] Hematocrit 41.2 41.0 - 50.0 % [facility] MCV 89 81 - 100 fL [facility] MCH 31.5 27.0 - 35.0 pg [facility] MCHC 35.4 32.0 - 37.0 g/dL [facility] RDW 12.2 (L) 12.3 - 15.4 % [facility] Platelets 132 (L) 150 - 400 x10e3/uL [facility] MPV 10.4 7.4 - 10.4 fL [facility] NRBC % 0 0 /100 WBCs [facility] Abs. NRBC 0.0 x10e3/uL [facility] Specimen Blood - Venous blood (substance) Performing Organization Address City/[facility] Phon e Number [facility] [address] [facility] [place] [address] POCT glucose (02/12/2021 12:17 PM PDT) POCT Glucose, 268 (A) 65 - 99 mg/dL [facility] POCT (CLIA [id number]) POCT Glucose Test Note: Reference [facility] Ranges [facility] POCT July 12 (CLIA [id number]) 2018. Specimen Blood - Capillary blood (substance) Performing Organization Address [facility] Phon e Number [facility] [address] [facility] [place] [address] POCT (CLIA [id number]) POCT glucose (02/12/2021 8:28 AM PDT) POCT Glucose, 196 (A) 65 - 99 mg/dL [facility] POCT (CLIA [id number]) POCT Glucose Test Note: Reference [facility] POCT July 12 (CLIA [id number]) 2018. Specimen Blood - Capillary blood (substance) Performing Organization Address [facility] Phon e Number [facility] [address] [facility] [place] [address] POCT (CLIA [id number]) Comprehensive Metabolic Panel (02/12/2021 6:51 AM PDT) Pathologist Sig nature Sodium 135 134 - 144 mmol/L [facility] Potassium 4.3 3.5 - 5.2 mmol/L [facility] Chloride 105 97 - 108 mmol/L [facility] CO2 24 18 - 29 mmol/L [facility] Anion Gap 6 3 - 11 mmol/L [facility] BUN 15.0 8.0 - 27.0 mg/dL [facility] Creatinine 0.87 0.76 - 1.27 [facility] mg/dL [facility] Glucose, Serum 197 (H) 65 - 99 mg/dL [facility] Calcium 8.9 8.5 - 10.1 mg/dL [facility] AST 53 (H) 0 - 50 U/L [facility] ALT 37 0 - 44 U/L [facility] Alkaline Phosphatase 55 25 - 160 U/L [facility] Total Protein 6.1 (L) 6.4 - 8.4 g/dL [facility] eGFR (CKD-EPI) 86 >60 (CKD-EPI) [facility] mL/min/1.73 m2 [facility] Albumin 3.8 3.4 - 5.0 g/dL [facility] Bilirubin, Total 0.6 <=1.2 mg/dL [facility] BUN/Creatinine Ratio 17.2 7.0 - 24.0 [facility] Specimen Blood - Venous blood (substance) Performing Organization Address City/State/ZIP Code Phon e Number [facility] [address] [facility] [id number] Complete blood count with diff (02/12/2021 5:53 AM PDT) Pathologist Sig nature WBC Auto 5.3 3.8 - 10.1 [facility] x10e3/uL [facility] RBC 4.43 4.40 - 5.80 [facility] x10e6/uL [facility] Hemoglobin 14.0 13.8 - 17.2 [facility] g/dL [facility] Hematocrit 42.0 41.0 - 50.0 % [facility] MCV 95 81 - 100 fL [facility] MCH 31.6 27.0 - 35.0 pg [facility] MCHC 33.3 32.0 - 37.0 [place] g/dL HOSPITAL LAB RDW 12.3 12.3 - 15.4 % [facility] Platelets 59 (L) 150 - 400 [facility] x10e3/uL [facility] MPV 11.3 (H) 7.4 - 10.4 fL [facility] NRBC % 0 0 /100 WBCs [facility] Abs. NRBC 0.0 x10e3/uL [facility] % Neutrophils 48 % [facility] % Lymphocytes 39 % [facility] % Monocytes 10 % [facility] % Eosinophils 2 % [facility] % Basophils 1 % [facility] Abs. Neutrophils 2.6 1.6 - 6.9 [facility] x10e3/uL [facility] Abs. Lymphocytes 2.0 1.1 - 4.8 [facility] x10e3/uL [facility] Abs. Monocytes 0.5 0.0 - 1.0 [place] [id number] [facility] Abs. Eosinophils 0.1 0.0 - 0.5 [facility] x10e3/uL [facility] Abs. Basophils 0.0 0.0 - 0.4 [facility] x10e3/uL [facility] Abs. Neutrophils 2,600.0 1,600.0-6,900.0 [facility] (Auto) /uL [facility] Specimen Blood - Venous blood (substance) Performing Organization Address City/State/ZIP Code Phon e Number [facility] [address] [facility] [id number] Lipoprotein (a) (02/12/2021 5:52 AM PDT) Lipoprotein(a) 12.4 <75.0 nmol/L [facility] Comment: Note: ??Values greater than or equal to 75.0 nmol/L ma y ? indicate an independent risk factor for CHD, ? but must be evaluated with caution when appl ied ? to non- populations due to the ? influence of genetic factors on Lp(a) across ? ethnicities. Specimen Blood - Venous blood (substance) Narrative Performed At Performed at: ??01 - [facility] [address] ??[id number] Consultant: Jordy Farley MD, Phone: ??[phone] Performing Organization Address [facility] [place] [address] [facility] [address] [place] [address] POCT glucose (02/12/2021 12:09 AM PDT) POCT Glucose, 178 (A) 65 - 99 mg/dL [facility] POCT (CLIA [id number]) POCT Glucose Test Note: Reference [facility] Comment Ranges revised HOSPITAL POCT July 12, (CLIA [id number]) 2018. Specimen Blood - Capillary blood (substance) Performing Organization Address [facility]/[place] [address] [facility] [place] [address] POCT (CLIA [id number]) CK and CK-MB (02/11/2021 6:34 PM PDT) Pathologist Sig nature Total CK 417 (H) 21 - 232 U/L [facility] CK-MB Index 10.4 (H) 0.0 - 5.0 % [facility] CK-MB 43.2 (HC) <=10.4 ng/mL [facility] Specimen Blood - Venous blood (substance) Performing Organization Address [facility] [address] [facility] A [id number] Troponin (02/11/2021 6:34 PM PDT) Pathologist Sig nature Troponin T 1.040 (HC) <0.020 ug/L [facility] Comment: HOSPITAL LAB Note: Reference Ranges revised August 02, 2020 Note: Critical Value parameters revised August 02, 2020. Specimen Blood - Venous blood (substance) Performing Organization Address [facility] [address] [facility] A [phone] POCT glucose (02/11/2021 2:08 PM PDT) POCT Glucose, 149 (A) 65 - 99 mg/dL [facility] POCT (CLIA [id number]) POCT Glucose Test Note: Reference [facility] Comment Ranges revised HOSPITAL POCT July 12, (CLIA [id number]) 2018. Specimen Blood - Capillary blood (substance) Performing Organization Address City/[facility]/ZIP Code Phon e Number [facility] [address] [facility] [place] [address] POCT (CLIA [id number]) ECG 12 lead- now if intervention performed (02/11/2021 1:59 PM PDT) Pathologist Sig nature HR 53 bpm [facility] RR 1,140 ms [facility] GA 159 ms [facility] QRSD 136 ms [facility] QT 457 ms [facility] QTc 428 ms [facility] QRS 72 deg [facility] T 83 deg [facility] Impression - ABNORMAL ECG - [facility] Impression Sinus rhythm [facility] Impression Left bundle branch [facility] block Impression When compared with ECG [facility] SYS TEM of 11-Feb-2021 08:10:39, Impression No significant change [facility] SYST EM Specimen Narrative Performed At This result has an attachment that is no t available. Result approved by Yadira Valles MD on 02/11/21 [facility] Performing Organization Address City/State/ZIP Code Phon e Number [facility] [address] [place] [address] SI STENT AIDE - CORONARY (02/11/2021 1:32 PM PDT) Specimen Narrative Performed At This result has an attachment that is no t available. PATIENT PROFILE: The patient is a 71-year-old male who [facility] presented with non ST elevated myocardial infarction. PROCEDURE: 1. ??Moderate sedation for 22 minutes. 2. ??Balloon angioplasty and stenting to the distal ?right coronary artery. VASCULAR CLOSURE DEVICE: Angio-Seal. COMPLICATIONS: None. METHOD: Additional moderate sedation was achieved with IV Versed and IV fentanyl under my direct supervision for 22 minutes. A 6-Micronesian hockey-stick guide was advanced to the righ t coronary ostium. ??A Runthrough wire was placed inside the right coronary artery. ??The distal right coronary art lorrie lesion was pre-dilated with a 2.5 x 12 mm balloon. ??A Xience 3.0 x 12 mm stent was placed inside the lesion and deployed at 20 atmospheres for 20 seconds. ??Final ang iogram was obtained. Following sheath removal, hemostasis was achieved by u sing Angio-Seal device. ??The patient tolerated the procedu re well. ??He was transferred to [facility] in good condition. TOTAL CONTRAST USED: 70 cc. FLUOROSCOPY TIME: 2.5 minutes. RESULTS: Successful balloon angioplasty and stenting t o the critical distal right coronary artery lesion by deploy ing one drug-eluting stent (3.0 x 12 mm), to achieve an excellent angiographic result with MARIA DE JESUS-3 flow distall y. Performing Organization Address City/State/ZIP Code [facility] e Number [facility] [address] [place] [address] SI LEFT HEART CATH (02/11/2021 1:32 PM PDT) Specimen Narrative Performed At This result has an attachment that is no t available. Cardiac Cath Report Date of Service 02/11/2021 Procedure: [facility] Indications: chest pain Patient is a 71-year-old man with non-STEMI. ??Troponi n T peaked at 0.[address] changes. ??He experienced dizzin ess, sweatiness, clamminess and chest pain across his chest. ??He has p reviously documented coronary artery disease with occluded ostial circumfle x and 80% ostial diagonal lesion. Vascular Access Right Femoral Artery using 6 Fr sheath. Diagnostic Catheters Left main: JL, 4.0, 6 Fr RCA: JR, 4.0, 6 Fr Procedure Details Left heart cath details: Following informed consent, patient was prepped and dr friedman in the usual sterile fashion. ??Patient was sedated with Versed and Fentanyl. ?? A 6-Micronesian sheath was placed in the right common femoral artery under dynamic ultrasound g uidance. ?? JL4 and JR4 catheters were used to engage left main and right coronary artery ostia, respectively. ??Hand injection and craniocaudal angulation was used to obtain selective coronary angiograms. ??All exchang es were performed over a wire. Pigtail was advanced into the LV; end diastolic pressu re was recorded. Pigtail was withdrawn into the aorta, and pullback was recorded. Case was turned over for intervention Medications/Fluoro Time Fluorscopy Time: 1.3 minutes Contrast (Isovue): 60 mls Blood loss: 5 mls Findings CORONARY ANGIOGRAPHY Lm is a long vessel which gives rise to LAD only. LCX had been found to be occluded during 2018 angiogram, and remains occluded o stially today LAD is a medium caliber vessel which gives rise to a m edium D1 with 80% ostial lesion, medium bifurcating D2 and small D3. RCA is a large dominant vessel, which gives rise to a large PDA and PL branch. 90% distal RCA stenosis is present. RCA is fed via L-R collaterals. ?? FEMORAL ANGIOGRAM - right bag machine set up operator gives rise to SFA and Pr ofunda femoris. There is no stenosis present. Sheath enters right [employer] at the 50th percentile hallie of the femoral head. No contrast extra vasation or dissection HEMODYNAMICS - edp 27 mm Hg; no aortic stenosis based on pullback Complications There were no periprocedural complications identified Summary: Severe coronary artery disease with 90% distal RCA senait nosis proximal to PDA takeoff. Previously documented occluded circumflex 90% ostial diagonal lesion. Recommendations: Proceed with RCA intervention Eufemia Way MD POCT glucose (02/11/2021 12:14 PM PDT) POCT Glucose, 164 (A) 65 - 99 mg/dL [facility] POCT (CLIA [id number]) POCT Glucose Test Note: Reference [facility] Comment Ranges revised HOSPITAL POCT July 12, (CLIA [id number]) 2018. Specimen Blood - Capillary blood (substance) Performing Organization Address [facility] Phon e Number [facility] [address] [facility] [place] [address] POCT (CLIA [id number]) Hold Lav Top - EDTA (02/11/2021 10:29 AM PDT) Pathologist Sig nature Extra Tube Hold for [facility] add-ons.Comment: LAB Auto resulted. Specimen Blood - Venous blood (substance) Performing Organization Address [facility] Phon e [facility] LAB [address] [facility] A [id number] Heparin Anti-Xa, Unfractionated (UFH) (02/11/2021 9:40 AM PDT) Heparin Anti-Xa 0.52Comment: 0.30 - 0.70 [facility] UF Consult with the [facility] HOSPITAL LAB Pharmacy for updated Heparin protocols. Specimen Blood - Venous blood (substance) Performing Organization Address [facility] [address] [facility] [address] CK and CK-MB (02/11/2021 9:40 AM PDT) Pathologist Sig nature Total CK 253 (H) 21 - 232 U/L [facility] CK-MB Index 11.0 (H) 0.0 - 5.0 % [facility] CK-MB 27.8 (HC) <=10.4 ng/mL [facility] LAB Specimen Blood - Venous blood (substance) Performing Organization Address [facility] [address] [facility] [address] Troponin (02/11/2021 9:40 AM PDT) Pathologist Sig nature Troponin T 0.134 (HC) <0.020 ug/L [facility] Comment: HOSPITAL LAB Note: Reference Ranges revised August 02, 2020 Note: Critical Value parameters revised August 02, 2020. Specimen Blood - Venous blood (substance) Performing Organization Address [facility] [address] [facility] [address] ECHOCARDIOGRAM COMPLETE (02/11/2021 9:01 AM PDT) Specimen Narrative Performed At ? [facility] [place] [facility] ? [facility] ?+---------+ : ?: ?[address] ?: ? : : ?: ?[address] ?: ? : : ?: ?[place], ? : ? : : ?: ? [place] [address] ?: ? : : ?: ?Phon e: 360- ?+-- -------+ + + ? [phone] ? Echocardiog ariadne Report + --- + :Name: BRADEN MARTIN Study Date: ?Height: 67.5 in: :Hospital ? ReadingLocation: ?Weight: 185 lb : : ?Gende r: Male ?BSA: 2.0 m2 ?: :: 1950 ? Age: 71 yrs ? BP: 127/79 mmHg: :Reason For Study: NSTEMI ? : :Ordering Physician: EMILY, ?: :SHELLIE ? Performe d By: Kaylin Arauz ? : :Referring: BLUE TEAM ? : + --- + Interpretation Summary Normal left ventricle size with ejection fraction 55%. Mild dyssynchronous contraction pattern, consistent wi th a conduction abnormality. Mild hypokinesis of mid inferior wall. Mild aortic valve sclerosis. Mild mitral regurgitation. Comparison is made with the echocardiogram of , there has been no significant change. Procedure: ?? A two-dimensional transthoracic echocardiogram with color flow and Doppler was performed. The study quality was technically adequate. Comparison is made with the echocardiogram of . The patient was in sinus rhythm with heart rates between 52-64 bpm during the exam. Left Ventricle: ?? The left ventricle is normal in siz e and wall thickness. Left ventricular ejection fraction is estimated to be 55%. There is a mild dyssynchronous contraction pattern, consistent with a conduction abnormality. There is mid inferior wall mild hypokinesis. There are no other obvious focal wall motion abnormalities. Right Ventricle: ?? The right ventricle is normal in s ize and function. Atria: ?? Both atria are normal in size. There is no Doppler evidence for an interatrial shunt. Mitral Valve: ?? The mitral valve is normal in structu re and function. There is mild mitral regurgitation. Aortic Valve: ?? The aortic valve is trileaflet. The aortic valve opens well. There is mild aortic valve sclerosis. No aortic regurgitation is present. Tricuspid Valve: ?? The tricuspid valve is normal in structure and function. There is a trace or physiologic amount of tricuspid regurgitation. Pulmonary artery pressures cannot be estimated because of the la ck of a measurable TR jet velocity but the IVC suggests a CVP of around 3 mmHg. Pulmonic Valve: ?? The pulmonic valve is not well seen , but is grossly normal. Great Vessels: ?? The aortic root is mildly dilated. T he ascending aorta is normal in size. The pulmonary artery is not well visualized, but is probably normal size. The IVC is of normal diameter and collaps es greater than 50% with a sniff. This suggests a low right atrial pressure of 3 mm Hg. Pericardium/ Pleura ?? There is no peric ardial effusion. MMode/2D Measurements & Calculations LVIDd: 3.7 cm ?LVOT diam: 2.1 cm LVIDs: 2.5 cm ?Ao root diam: 4.0 cm IVSd: 0.81 cm ?asc Aorta Diam: 3.1 cm LVPWd: 0.83 cm ? Ao Arch Diam (distal): 2.6 cm LV farias. diameter/BSA (cm/m^2): 1.9 LV sys. diameter/BSA (cm/m^2): 1.2 FS: 33.6 % ? ___ LA A2 area: 15.9 cm2 ? RA long axis: 4.3 cm LA A4 area: 14.3 cm2 ? RA area: 12.0 cm2 LA length (vol): 4.4 cm ?R A vol: 28.0 ml LA vol: 43.7 ml ?RA : 14.2 ml/m2 LA vol index: 22.2 ml/m2 ? ___ RVD1 (basal): 3.1 cm ? IVC diam: 0.98 cm RVD2 (mid): 1.9 cm TAPSE: 1.9 cm Doppler Measurements & Calculations Ao V2 max: 102.7 cm/sec ?L VOT Max Howard: 91.5 cm/sec Ao V2 mean: 72.7 cm/sec ?L V V1 max P.4 mmHg Ao V2 VTI: 22.5 cm ? LV V1 VTI: 20.4 cm Ao max P.2 mmHg Ao mean P.3 mmHg ? ___ SEAN(I,D): 3.0 cm2 ?MV E max howard: 79.6 cm/sec SEAN(V,D): 3.0 cm2 ?MV A max howard: 68.9 cm/sec SEAN indexed to BSA (cm^2/m^2): 1.5 ? MV E/A: 1.2 sev ratio: 0.91 ? Med Peak E' Howard: 4.8 cm/sec ? E/E' med: 16.7 ? Lat Peak E' Howard: 10.4 cm/sec ? E/E' lat: 7.7 ? E/e' average: 12.2 ? ___ MV P1/2t: 50.2 msec ?PA V2 max: 74.6 cm/sec MVA(P1/2t): 4.4 cm2 ?PA V2 mean: 49.1 cm/sec ? PA mean P.1 mmHg ? PA Accel Time: 0.06 sec ? ___ SV(LVOT): 67.6 ml ___ ?Electronically signed by: Yadira Charles on Reading Physician:02/11/2021 09:47 AM Procedure Note Interface, Radiology Results In - 2020 9:48 AM PDT Sandeep Borrego + + Hospi [facility] +---------+ : : [address] : : : : [place], : : : : [place] [address] : : : : Phone: [phone] Echocardiog ariadne Report + + :Name: KIRKSERGIO BRADEN MORROW Study D ate: 02/11/2021 Height: 67.5 in: :[facility] Reading Location: Weight: 185 lb : : Gender: Male BSA: 2.0 m2 : :: 1950 Age: 71 yrs BP: 127/79 mmHg: :Reason For Study: NSTEMI : :Ordering Physician: EMILY, : :SHELLIE Perform ed By: Kaylin Arauz : :Referring: ELIZABETH TEAM : + + Interpretation Summary Normal left ventricle size with ejection fraction 55%. Mild dyssynchronous contraction pattern, consistent with a conduction abnormality. Mild hypokinesis of mid inferior wall. Mild aortic valve sclerosis. Mild mitral regurgitation. Comparison is made with the echocardiogr am of 01/26/2019, there has been no significant change. Procedure: A two-dimensional transthor acic echocardiogram with color flow and Doppler was performed. The study bart lity was technically adequate. Comparison is made with the echocardiogr am of 01/26/2019. The patient was in sinus rhythm with heart rates between 52 -64 bpm during the exam. Left Ventricle: The left ventricle is normal in size and wall thickness. Left ventricular ejection fraction is es timated to be 55%. There is a mild dyssynchronous contraction pattern, cons istent with a conduction abnormality. There is mid inferior wall mild hypokine sis. There are no other obvious focal wall motion abnormalities. Right Ventricle: The right ventricle i s normal in size and function. Atria: Both atria are normal in size. There is no Doppler evidence for an interatrial shunt. Mitral Valve: The mitral valve is norm al in structure and function. There is mild mitral regurgitation. Aortic Valve: The aortic valve is tril eaflet. The aortic valve opens well. There is mild aortic valve sclerosis. No aortic regurgitation is present. Tricuspid Valve: The tricuspid valve i s normal in structure and function. There is a trace or physiologic amount o f tricuspid regurgitation. Pulmonary artery pressures cannot be estimated bec ause of the lack of a measurable TR jet velocity but the IVC suggests a CVP of around 3 mmHg. Pulmonic Valve: The pulmonic valve is not well seen, but is grossly normal. Great Vessels: The aortic root is mild ly dilated. The ascending aorta is normal in size. The pulmonary artery is not well visualized, but is probably normal size. The IVC is of normal diamet er and collapses greater than 50% with a sniff. This suggests a low right atria l pressure of 3 mm Hg. Pericardium/ Pleura There is no perica rdial effusion. MMode/2D Measurements & Calculations LVIDd: 3.7 cm LVOT diam: 2.1 cm LVIDs: 2.5 cm Ao root diam: 4.0 cm IVSd: 0.81 cm asc Aorta Diam: 3.1 cm LVPWd: 0.83 cm Ao Arch Diam (distal): 2.6 cm LV farias. diameter/BSA (cm/m^2): 1.9 LV sys. diameter/BSA (cm/m^2): 1.2 FS: 33.6 % LA A2 area: 15.9 cm2 RA long axis: 4.3 cm LA A4 area: 14.3 cm2 RA area: 12.0 cm2 LA length (vol): 4.4 cm RA vol: 28.0 ml LA vol: 43.7 ml RA : 14.2 ml/m2 LA vol index: 22.2 ml/m2 RVD1 (basal): 3.1 cm IVC diam: 0.98 cm RVD2 (mid): 1.9 cm TAPSE: 1.9 cm Doppler Measurements & Calculations Ao V2 max: 102.7 cm/sec LVOT Max Howard: 91.5 cm/sec Ao V2 mean: 72.7 cm/sec LV V1 max P.4 mmHg Ao V2 VTI: 22.5 cm LV V1 VTI: 20.4 cm Ao max P.2 mmHg Ao mean P.3 mmHg SEAN(I,D): 3.0 cm2 MV E max howard: 79.6 cm/sec SEAN(V,D): 3.0 cm2 MV A max howard: 68.9 cm/sec SEAN indexed to BSA (cm^2/m^2): 1.5 MV E/A: 1.2 sev ratio: 0.91 Med Peak E' Howard: 4.8 cm/sec E/E' med: 16.7 Lat Peak E' Howard: 10.4 cm/sec E/E' lat: 7.7 E/e' average: 12.2 MV P1/2t: 50.2 msec PA V2 max: 74.6 cm/sec MVA(P1/2t): 4.4 cm2 PA V2 mean: 49.1 cm/sec PA mean P.1 mmHg PA Accel Time: 0.06 sec SV(LVOT): 67.6 ml Electronically signed by: Yadira Charles on Reading Physician:02/11/2021 09:47 AM Performing Organization Address City/[facility]/ZIP Code [facility] e Number [facility] [address] [place] [address] ECG 12 lead (02/11/2021 8:10 AM PDT) Pathologist Sig nature HR 58 bpm [facility] RR 1,034 ms [facility] GA 151 ms [facility] QRSD 140 ms [facility] QT 440 ms [facility] QTc 433 ms [facility] QRS 51 deg [facility] T 67 deg [facility] Impression - ABNORMAL ECG - [facility] Impression Sinus rhythm [facility] Impression Left bundle branch [facility] block Impression When compared with ECG [facility] TEM of 23-Jun-2018 08:00:59, Impression No significant change [facility] SYST EM Specimen Narrative Performed At This result has an attachment that is no t available. Performing Organization Address [facility] e Number [facility] [address] [place] [address] POCT glucose PRN (02/11/2021 6:09 AM PDT) POCT Glucose, 208 (A) 65 - 99 mg/dL [facility] POCT (CLIA [id number]) POCT Glucose Test Note: Reference [facility] Comment [facility] revised HOSPITAL POCT July 12, (CLIA [id number]) 2018. Specimen Blood - Capillary blood (substance) Performing Organization Address City/[facility] Code Phon e Number [facility] [address] [facility] [id number] POCT (CLIA [id number]) Heparin Induced Platelet Autoantibody (02/11/2021 6:01 AM PDT) Pathologist Sig nature Heparin Induced Platelet 0.086 0.000 - 0.400 OD [facility] SEAT TLE Ab Specimen Blood - Venous blood (substance) Narrative Performed At Performed at: ??01 - [facility] [address] ??[id number] [facility] Consultant: Jordy Farley MD, Phone: ??[phone] Performing Organization Address [facility]/ZIP Code [facility] e Number [facility] [address] [address] CK and CK-MB (02/11/2021 6:01 AM PDT) Pathologist Sig nature Total CK 187 21 - 232 U/L [facility] CK-MB Index 10.4 (H) 0.0 - 5.0 % [facility] CK-MB 19.4 (HC) <=10.4 ng/mL [facility] LAB Specimen Blood - Venous blood (substance) Performing Organization Address [facility] Magi [facility] [address] [facility] [id number] Troponin (02/11/2021 6:01 AM PDT) Pathologist Sig nature Troponin T 0.084 (HC) <0.020 ug/L [facility] Comment: HOSPITAL LAB Note: Reference Ranges revised August 02, 2020 Note: Critical Value parameters revised August 02, 2020. Specimen Blood - Venous blood (substance) Performing Organization Address [facility] e Magi [facility] [address] [facility] [id number] Complete blood count with diff (02/11/2021 6:01 AM PDT) Pathologist Sig nature WBC Auto 6.8 3.8 - 10.1 [facility] x10e3/uL [facility]OSPITAL LAB RBC 4.33 (L) 4.40 - 5.80 [facility] x10e6/uL [facility]OS[facility]ITAL LAB Hemoglobin 13.7 (L) 13.8 - 17.2 [facility] g/dL HOSPITAL LAB Hematocrit 40.0 (L) 41.0 - 50.0 % [facility] MCV 92 81 - 100 fL [facility] MCH 31.6 27.0 - 35.0 pg [facility] MCHC 34.3 32.0 - 37.0 [facility] g/dL [facility] RDW 12.1 (L) 12.3 - 15.4 % [facility] Platelets 133 (L) 150 - 400 [facility] x10e3/uL [facility] MPV 10.6 (H) 7.4 - 10.4 fL [facility] NRBC % 0 0 /100 WBCs [facility] Abs. NRBC 0.0 x10e3/uL [facility] % Neutrophils 44 % [facility] % Lymphocytes 45 % [facility] % Monocytes 8 % [facility] % Eosinophils 2 % [facility] % Basophils 1 % [facility] Abs. Neutrophils 3.0 1.6 - 6.9 [facility] x10e3/[facility] LAB Abs. Lymphocytes 3.1 1.1 - 4.8 [place] [id number] LAB Abs. Monocytes 0.6 0.0 - 1.0 [place] [id number] LAB Abs. Eosinophils 0.1 0.0 - 0.[address] [place] [id number] LAB Abs. Basophils 0.0 0.0 - 0.4 [place] [id number] LAB Abs. Neutrophils 3,000.0 1,600.0-6,900.0 [facility] (Auto) [facility] LAB Specimen Blood - Venous blood (substance) Performing Organization Address City/State/ZIP Code Phon e Number [facility] [address] [facility] [address] TELEMETRY EXTERNAL RESULTS (02/11/2021) Narrative Performed At This result has an attachment that is no t available. Ordered by an unspecified provider. XR EXTERNAL RESULTS (02/11/2021) Narrative Performed At This result has an attachment that is no t available. Ordered by an unspecified provider. ECG EXTERNAL RESULTS (02/11/2021) Narrative Performed At This result has an attachment that is no t available. Ordered by an unspecified provider. documented in this encounter Visit Diagnoses Diagnosis NSTEMI (non-ST elevated myocardial infar ction) (CMS/[facility]) - Primary Acute myocardial infarction, subendocard ial infarction, episode of care unspecified documented in this encounter Administered Medications Inactive Administered Medications - up to 3 most recent administrations Medication Order MAR Action Action Date Dose Rate Site acetaminophen (TYLENOL) tablet Given 02/11/2021 8:47 PM PDT 650 mg 650 mg 650 mg, oral, Every 4 hours PRN, mild pain, headaches, fever, Starting on Thu02/11/21 at 2044 aspirin EC tablet 81 mg Given 02/13/2021 9:06 AM PDT 81 mg 81 mg, oral, Daily, First dose on Thu02/11/21 at 0900 Given 02/12/2021 8:27 AM PDT 81 mg Given 02/11/2021 9:27 AM PDT 81 mg atorvastatin (LIPITOR) tablet 40 mg Given 02/12/2021 8:09 PM PDT 40 mg 40 mg, oral, Nightly, First dose on Thu02/11/21 at 2100 Given 02/11/2021 8:47 PM PDT 40 mg atropine injection (abboject) 1 mg 1 mg, intravenous, Every 5 min PRN, sherwin ycardia, As directed by Provider or ACLS Protocol for symptomatic bradycardia, Starting on Thu02/11/21 at 1348, Postprocedure (SI), Repeat as directed. clopidogreL (PLAVIX) tablet 75 mg Given 02/13/2021 9:06 AM PDT 75 mg 75 mg, oral, Daily, First dose on Thu02/12/21 at 0900 Given 02/12/2021 8:27 AM PDT 75 mg dextrose 50 % in water (D50W) g injectio n 12.5-50 g 12.5-50 g, intravenous, As needed, low blood sugar, St arting on Thu02/11/21 at 0558, For blood glucose less than 50 if the patient is NPO and/or non-responsive and an IV is in place. Check BG every 1 5 minutes and repeat rescue therapy until BG greater than 100 ml/dL. If BG less th an 50 mg/dL OR hypoglycemia persists at 40 min, notify provider STAT to evaluate. Once BG greater than 100 ml/dL, re-check BG in 1 hr to detect recurrent hypoglycemia . Notify Provider of hypoglycemic incident and document hypoglycemia management., B G 50-70 OR symptomatic BG 71-89: 12.5 g (25 mL) of Dextrose 50%, BG less than 50: 25 g (50 mL) of Dextrose 50% fentaNYL (SUBLIMAZE) injection Given 02/11/2021 12:56 PM PDT 100 mcg intravenous, Code/trauma/sedation medication, Starting on Thu02/11/21 at 1256 flumazeniL (ROMAZICON) injection 0.2 mg 0.2 mg, intravenous, As needed, for susp ected benzodiazepine overdose, Starting on Thu02/11/21 at 1348, Postprocedure (SI), every 20 min prn for suspected benzodiazepine overdose heparin (porcine) injection Given 02/11/2021 1:25 PM PDT 8,500 Units intravenous, Code/trauma/sedation medication, Starting on Thu02/11/21 at 1325 heparin 25,000 units Rate/Dose Change 02/11/2021 11:45 11 Units/kg/ hr 18.26 mL/hr in 500 mL 0.45% NS AM PDT (premix) 11 Units/kg/hr ? 83 kg Order-Specific weight (18.26 mL/hr), intravenous, at 18.26 mL/hr, Titrated, Starting on Thu02/11/21 at 0600, If patient weight greater than 83 kg, use a dosing weight of 83 kg for entire infusion., Indications: acute coronary syndrome Rate/Dose Verify 02/11/2021 8:55 AM PDT 12 Units/kg/hr 19.92 mL/hr Rate/Dose Verify 02/11/2021 6:00 AM PDT 12 Units/kg/hr 19.92 mL/hr insulin lispro injection 0-5 Units 0-5 Units, subcutaneous, Nightly, First dose on Thu at 2100, Observe Hazardous Substance Precautions; Dispose of Product and Packaging in Black Waste Container, BG 141-180 mg/dL: 0 units, BG 181-225 mg/dL: 0 units, BG 226-250 mg/dL: 0 units, BG 251-300 mg/dL: 2 units, BG 3 01-350 mg/dL: 4 units, BG 351-400 mg/dL: 5 units, BG greater than 400 mg/dL: rechec k BG now, then give 5 units and recheck BG in 1 hour. Notify Provider., BG greater than 500 mg/dL: send STAT Lab Glucose AND notify Provider. insulin lispro injection Given 02/13/2021 9:06 AM PDT 1 Units Left Upper Arm 0-6 Units (Back) 0-6 Units, subcutaneous, 3 times daily with meals, First dose on Thu02/12/21 at 0900, Low Dose Correctional Insulin Observe Hazardous Substance Precautions; Dispose of Product and Packaging in Black Waste Container, BG 141-180 mg/dL: 1 unit, BG 181-225 mg/dL: 2 units, BG 226-250 mg/dL: 3 units, BG 251-300 mg/dL: 4 units, BG 301-350 mg/dL: 5 units, BG 351-400 mg/dL: 6 units, BG greater than 400 mg/dL: recheck BG now, then give 6 units and recheck BG in 1 hour. Notify Provider., BG greater than 500 mg/dL: send STAT Lab Glucose AND notify Provider Given 02/12/2021 5:23 PM PDT 1 Units Left Lower Abdomen Given 02/12/2021 12:17 PM PDT 4 Units Left Lower Abdomen iopamidoL (ISOVUE-370) 76 % injection Given 02/11/2021 1:33 PM PDT 50 mL Code/trauma/sedation medication, Starting on Thu02/11/21 at 1333 iopamidoL (ISOVUE-370) 76 % injection Given 02/11/2021 1:33 PM PDT 20 mL Code/trauma/sedation medication, Starting on Thu02/11/21 at 1333 lidocaine (XYLOCAINE) 10 mg/mL (1 %) inj ection 1 mL 1 mL, infiltration, Once as needed, for use as anesthetic for IV start, Starting on Thu02/11/21 at 0550, For 1 dose lidocaine (XYLOCAINE) 10 mg/mL (1 %) inj ection 1 mL 1 mL, infiltration, Once as needed, for use as anesthetic for IV start, Starting on Thu02/11/21 at 1220, For 1 dose, Preprocedure (SI) metoprolol succinate XL (TOPROL-XL) 24 hr Given 02/13/2021 9:06 AM PDT 50 mg tablet 50 mg 50 mg, oral, Every morning, First dose on Thu02/11/21 at 0900 Given 02/12/2021 8:27 AM PDT 50 mg Given 02/11/2021 9:27 AM PDT 50 mg midazolam (VERSED) injection Given 02/11/2021 12:56 PM PDT 2 mg intravenous, Code/trauma/sedation medication, Starting on Thu02/11/21 at 1256 nitroglycerin (NITROSTAT) SL tablet 0.4 mg 0.4 mg, sublingual, Every 5 min PRN, juan david st pain, Starting on Thu02/11/21 at 1220, For 3 doses, Preprocedure (SI), May admi nister up to 3 doses per episode. Fall Risk Category 4 prasugreL (EFFIENT) tablet Given 02/11/2021 1:34 PM PDT 60 mg oral, Code/trauma/sedation medication, Starting on Thu02/11/21 at 1334 REGULAR INSULIN (HumuLIN R) Given 02/12/2021 5:59 AM PDT 1 Unit s Left Upper Arm injection 0-6 Units (Back) 0-6 Units, subcutaneous, Every 6 hours, First dose on Thu02/11/21 at 0600, Low Dose Correctional Insulin Observe Hazardous Substance Precautions; Dispose of Product and Packaging in Black Waste Container, BG 141-180 mg/dL: 1 unit, BG 181-225 mg/dL: 2 units, BG 226-250 mg/dL: 3 units, BG 251-300 mg/dL: 4 units, BG 301-350 mg/dL: 5 units, BG 351-400 mg/dL: 6 units, BG greater than 400 mg/dL: recheck BG now, then give 6 units and recheck BG in 1 hr. Notify provider., BG greater than 500 mg/dL: send STAT Lab Glucose and notify provider., Indications: hyperglycemia Given 02/12/2021 12:07 AM PDT 1 Units Left Upper Arm (Back) Given 02/11/2021 6:16 AM PDT 2 Units Righ t Upper Arm (Back) sodium chloride 0.9 % flush 10 mL 10 mL, intravenous, As needed, line care, Starting on Thu02/11/21 at 0550 sodium chloride 0.9 % flush 10 mL 10 mL, intravenous, As needed, line care, Starting on Thu02/11/21 at 1220, Preprocedure (SI) documented in this encounter Active and Recently Administered Medications Times are shown in PDT. Scheduled Medication Order 02/11/2021 02/12/2021 02/13/2021 aspirin EC tablet 81 mg 0927 (Given - Provider: Kerry finnegan RN) 0827 (Given - Provider: Amber Henry RN) 0906 (Given - Provider: Jenny Olvera RN) 81 mg, oral, Daily, First dose on Thu02/11/21 at 0900 atorvastatin (LIPITOR) tablet 40 mg 2046 (Given - Prov ider: Ashanti Timmons RN) 2008 (Given - Provider: Pushpa Morris) 40 mg, oral, Nightly, First dose on Thu02/11/21 at 2100 clopidogreL (PLAVIX) tablet 75 mg 08 ( Given - Provider: Amber Henry RN) 09 (Given - Provider: Jenny Olvera RN) 75 mg, oral, Daily, First dose on Thu02/12/21 at 0900 diphenhydrAMINE (BENADRYL) injection 12.5-25 mg 1230 ( Canceled Entry - Provider: [facility] Discharge Provider, Automatic - Comment: Automatically canceled at discontinue of medication order) 12.5-25 mg, intravenous, Once, On Thu at 1230, For 1 dose, Preprocedure (SI), Give 1 hour prior to procedure. For patients 65 yrs or older. insulin lispro injection 0-5 Units 2099 (Not Given - Provider: Pushpa Morris - Reason: Order parameters not met) 0-5 Units, subcutaneous, Nightly, First dose on Thu02/12/21 at 2100, Observe Hazardous Substance Precautions; Dispose of Product and Packaging in Black Waste Container, BG 141-180 mg/dL: 0 units, BG 181 -225 mg/dL: 0 units, BG 226-250 mg/dL: 0 units, BG 251-300 mg/dL: 2 units, BG 301-350 mg/dL: 4 units, BG 351-400 mg/dL: 5 units, BG greater than 400 mg/dL: recheck BG now, then give 5 units and recheck BG in 1 hour. Notify Provider., BG great er than 500 mg/dL: send STAT Lab Glucose AND notify Provider. insulin lispro injection 0-6 Units 08 (Given - Provider: Amber Henry RN)1217 (Given - Provider: Amber Henry RN)1723 (Given - Provider: Amber Henry RN) 09 (Given - Provider: Jenny Olvera RN)1200 (Canceled Entry - Provider: [facility] Discharge Provider, Automatic - Comment: Automatically canceled at discontinue of medication order) 0-6 Units, subcutaneous, 3 times daily w ith meals, First dose on Thu02/12/21 at 0900, Low Dose Correctional Insulin Observe Hazardous Substance Precautions; Dispose of Product and Packaging in Black Was te Container, BG 141-180 mg/dL: 1 unit, BG 181-225 mg/dL: 2 units, BG 226-250 mg/dL: 3 units, BG 251-300 mg/dL: 4 units, BG 301-350 mg/dL: 5 units, BG 351-400 mg/dL: 6 units, BG greater than 400 mg/dL: recheck BG now, then give 6 units and re check BG in 1 hour. Notify Provider., BG greater than 500 mg/dL: send STAT Lab Glucose AND notify Provider LORazepam (ATIVAN) injection 0.5 mg 1230 (Canceled Ent ry - Provider: [facility] Discharge Provider, Automatic - Comment: Automatically canceled at discontinue of medication order) 0.5 mg, intravenous, Once, On Thu 1 at 1230, For 1 dose, Preprocedure (SI), if patient 65 years or older., Indications: anxiety metoprolol succinate XL (TOPROL-XL) 24 hr tablet 50 mg 0927 (Given - Provider: Kerry Richmond RN) 0827 (Given - Provider: Amber Henry RN) 0906 (Given - Provider: Jenny Olvera RN) 50 mg, oral, Every morning, First dose on Thu02/11/21 at 0900 REGULAR INSULIN (HumuLIN R) injection 0-6 Units (CANCE LED) 0616 (Given - Provider: Harris Arias)1200 (Not Given - Provider: Kerry Richmond RN - Reason: NPO - Comment: BG 164)1800 (Not Given - Provider: Kerry Richmond RN - Reason: Order parameters not met - Comment: BG 149 0007 (Given - Provider: Ashanti Timmons, KYLEE)0559 (Given - Provider: Ashanti Timmons RN) 0-6 Units, subcutaneous, Every 6 hours, First dose on Thu02/11/21 at 0600, Low Dose Correctional Insulin Observe Hazardous Substance Precautions; Dispose of Product and Packaging in Black Waste Containe while in [place], ate dinner) r, BG 141-180 mg/dL: 1 unit, BG 181-225 mg/dL: 2 units, BG 226-250 mg/dL: 3 units, BG 251-300 mg/dL: 4 units, BG 301-350 mg/dL: 5 units, BG 351-400 mg/dL: 6 units, BG greater than 400 mg/dL: recheck BG now, then give 6 units and recheck BG in 1 hr. Notify provider., BG greater than 500 mg/dL: send STAT Lab Glucose and notify provider., Indications: hyperglycemia Continuous Medication Order 02/11/2021 02/12/2021 02/13/2021 heparin 25,000 units in 500 mL 0.45% NS (premix) (CANC ELED) 0600 (Rate/Dose Verify - Provider: Harris Arias)0855 (Rate/Dose Verify - Provider: Kerry Richmond, RN)1145 (Rate/Dose Change - Provider: Kerry Richmond, RN)1528 (Stopped - Provider: Brad Herron, KYLEE) 11 Units/kg/hr ? 83 kg Order-Specific weight (18.26 mL/hr), intravenous, at 18.26 mL/hr, Titrated, Starting on Thu02/11/21 at 0600, If patient weight greater than 83 kg, use a dosing weight of 83 kg fo r entire infusion., Indications: acute coronary syndrome PRN Medication Order 02/11/2021 02/12/2021 02/13/2021 acetaminophen (TYLENOL) tablet 650 mg 2046 (Given - Pr ovider: Ashanti Timmons, KYLEE) 650 mg, oral, Every 4 hours PRN, mild pa in, headaches, fever, Starting on Thu02/11/21 at 2044 atropine injection (abboject) 1 mg 1 mg, intravenous, Every 5 min PRN, sherwin ycardia, As directed by Provider or ACLS Protocol for symptomatic bradycardia, Starting on Thu02/11/21 at 1348, Postprocedure (SI), Repeat as directed. dextrose 50 % in water (D50W) g injection 12.5-50 g 12.5-50 g, intravenous, As needed, low b lood sugar, Starting on Thu02/11/21 at 0558, For blood glucose less than 50 if the patient is NPO and/or non-responsive and an IV is in place. Check BG every 15 minutes and repeat rescue therapy until BG greater than 100 ml/dL. If BG less than 50 mg/dL OR hypoglycemia persists at 40 min, notify provider STAT to evaluate. Once BG greater than 100 ml/dL, re-chec k BG in 1 hr to detect recurrent hypogly cemia. Notify Provider of hypoglycemic incident and document hypoglycemia management., BG 50-70 OR symptomatic BG 71- 89: 12.5 g (25 mL) of Dextrose 50%, BG less than 50: 25 g (50 mL) of Dextrose 50% fentaNYL (SUBLIMAZE) injection (COMPLETED) 1256 (Given - Provider: Brad Herron RN) intravenous, Code/trauma/sedation medication, Starting on Thu at 1256 flumazeniL (ROMAZICON) injection 0.2 mg 0.2 mg, intravenous, As needed, for susp ected benzodiazepine overdose, Starting on Thu02/11/21 at 1348, Postprocedure (SI), every 20 min prn for suspected benzodiazepine overdose heparin (porcine) injection (COMPLETED) 1325 (Given - Provider: Brad Herron RN) intravenous, Code/trauma/sedation medication, Starting on Thu at 1325 iopamidoL (ISOVUE-370) 76 % injection (COMPLETED) 1333 (Given - Provider: Eufemia Way MD) Code/trauma/sedation medication, Starting on Thu02/11/21 at 1333 iopamidoL (ISOVUE-370) 76 % injection (COMPLETED) 1333 (Given - Provider: Yadira Valles MD) Code/trauma/sedation medication, Starting on Thu02/11/21 at 1333 lidocaine (XYLOCAINE) 10 mg/mL (1 %) injection 1 mL(Linked Group 1) 1 mL, infiltration, Once as needed, for use as anesthetic for IV start, Starting on Thu02/11/21 at 0550, For 1 dose lidocaine (XYLOCAINE) 10 mg/mL (1 %) injection 1 mL(Linked Group 2) 1 mL, infiltration, Once as needed, for use as anesthetic for IV start, Starting on Thu02/11/21 at 1220, For 1 dose, Preprocedure (SI) midazolam (VERSED) injection (COMPLETED) 1256 (Given - Provider: Brad Jossue B Gopal, RN) intravenous, Code/trauma/sedation medication, Starting on Thu at 1256 naloxone (NARCAN) injection 0.04 mg 0.04 mg, intravenous, As needed, opioid reversal, respiratory depression, respiratory rate less than 8, Starting on Thu02/11/21 at 0550, Every 1 Minute PRN For Opiate Reversal 1. Draw up 0.4 mg (1 mL) in 10 mL syringe, and dilute with 9 mL o f saline for an naloxone concentration of 0.04 mg/mL. 2. Give 0.04 mg (1 mL) IV push flushing solution into vein and repeat every min until resp rate greater humberto n 10 per min and level of sedation impro vivi. 3. Notify Provider STAT., Indications: opiate-induced respiratory depression nitroglycerin (NITROSTAT) SL tablet 0.4 mg 0.4 mg, sublingual, Every 5 min PRN, juan david st pain, Starting on Thu02/11/21 at 1220, For 3 doses, Preprocedure (SI), May administer up to 3 doses per episode. Fall Risk Category 4 prasugreL (EFFIENT) tablet (COMPLETED) 1334 (Given - P rovider: Brad Herron, RN) oral, Code/trauma/sedation medication, Starting on Thu02/11/21 a t 1334 sodium chloride 0.9 % flush 10 mL(Linked Group 1) 10 mL, intravenous, As needed, line care, Starting on Thu 1 at 0550 sodium chloride 0.9 % flush 10 mL(Linked Group 2) 10 mL, intravenous, As needed, line care , Starting on Thu02/11/21 at 1220, Preprocedure (SI) Linked Groups Order Group 1: Insert peripheral IV (CANCELED) Once, On Thu02/11/21 at 0551, For 1 occu rrence And lidocaine (XYLOCAINE) 10 mg/mL (1 %) injection 1 mLJump to med 1 mL, infiltration, Once as needed, for use as anesthetic for IV start, Starting on Thu02/11/21 at 0550, For 1 dose And Maintain IV access (CANCELED) Until discontinued, Starting on 02/11 at 0551, Until Specified And Saline lock IV (CANCELED) Once, On Thu02/11/21 at 0551, For 1 occu rrence And sodium chloride 0.9 % flush 10 mLJump to med 10 mL, intravenous, As needed, line care , Starting on Thu02/11/21 at 0550 Group 2: Insert peripheral IV (CANCELED) Once, On Thu02/11/21 at 1221, For 1 occu rrence
Left arm access unless otherwise instructed by Provider., Preprocedure (SI) And lidocaine (XYLOCAINE) 10 mg/mL (1 %) injection 1 mLJump to med 1 mL, infiltration, Once as needed, for use as anesthetic for IV start, Starting on Thu02/11/21 at 1220, For 1 dose, Preprocedure (SI) And Maintain IV access (CANCELED) Until discontinued, Starting on 02/11 at 1221, Until Specified
Preprocedure (SI) And Saline lock IV (CANCELED) Once, On Thu02/11/21 at 1221, For 1 occu rrence
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
--- NOTE | 2021-05-07 16:35 | DIAB.FU ---
Diabetes Education Class Series: Diabetes Lifestyle Change and Ongoing Support Name: Braden Umaña Date: 05/07/21 Time: [id number] Braden presents today for the final diabetes education class with his , Naila. States he is looking forward to getting new labs to see his improved HgA1c. Reports attending cardiac rehab this morning and looking forward to restarting that program. Reports continued physical activity goals. Class topics covered: ? Discuss the difference between physical activity and exercise ? Determine physical activity benefits and impact on diabetes ? Review physical activity recommendations and safety ? Discuss emergency preparedness ? Discuss diabetes and emotions (diabetes burnout/distress) ? Review and practice stress management techniques ? Review support groups and community resources ? Discuss the role of family support in diabetes care ? What is going well? Challenges of diabetes? ? Set SMART goals Goal Set: walk 2 mi in 30 min Follow-up: 1:1 visit follow-up Светлана Castillo RDN, [facility] Registered Dietitian, Certified Diabetes Care and Independent Agent Music Education [phone] [email or web address]
== END 2021-08-07 10:30 ==
LOC: CAR 08:30
PROVIDERS: Family Provider Specialist; PCP Family Medicine; Referring Provider Physician Assistant Medical; Visit Provider Internal Medicine Interventional Cardiology
DX: I21.4 Non-ST elevation (NSTEMI) myocardial infarction (principal)
CPT/HCPCS: 93798; G0109

== ENCOUNTER → 2021-09-09 07:04 | Outpatient (CLI) | payer MEDICARE, SELFPAY ==
[2019-08-29 09:33] VITALS: BMI 26.4
[2021-09-09 07:57] LABS: Alanine Aminotransferase 23 IU/L (<50); Albumin 4.3 g/dL (3.5-5.0); Albumin Globulin Ratio 1.7 (1.0-2.8); Alkaline Phosphatase 45 U/L (38-126); Aspartate Aminotransferase 26 IU/L (17-59); BUN Creatinine Ratio 18.4 (6-22); Bilirubin Total 0.5 mg/dL (0.2-1.3); Blood Urea Nitrogen 18 mg/dL (9-20); Calcium 9.5 mg/dL (8.4-10.2); Carbon Dioxide 31 mmol/L (22-32); Chloride 104 mmol/L (98-107); Estimated Glomerular Filt Rate > 60.0 mL/min (>60); Globulin 2.5 g/dL (1.7-4.1); Glucose 130 mg/dL (80-110); HEMOLYSIS < 15 (0-50); Magnesium 1.6 mg/dL (1.6-2.3); Potassium 4.2 mmol/L (3.4-5.1); Sodium 139 mmol/L (137-145); Total Protein 6.8 g/dL (6.3-8.2)
[2021-09-11 08:43] LABS: Cholesterol, Total 108 mg/dL (100-199); HDL-Cholesterol 45 mg/dL (>39); HDL-Particle (Total) 35.6 umol/L (>=30.5); LDL Particle 605 nmol/L (<1000); LDL Size 20.1 nm (>20.5); LDL-Cholsterol 38 mg/dL (0-99); LP-IR Score 56 (<=45); Small LDL- Particle 371 nmol/L (<=527); Triglycerides 146 mg/dL (0-149)
== END ==
PROVIDERS: Family Provider Specialist; PCP Family Medicine; Referring Provider Physician Assistant Medical; Visit Provider Physician Assistant Medical
DX: R55 Syncope and collapse (principal); E78.00 Pure hypercholesterolemia, unspecified; E11.9 Type 2 diabetes mellitus without complications
CPT/HCPCS: 36415; 80053; 80061; 83704; 83735

== ENCOUNTER → 2021-10-08 10:42 | Outpatient (CLI) | payer MEDICARE, SELFPAY ==
[2019-08-29 09:33] VITALS: BMI 26.4
--- NOTE | 2021-10-09 09:47 | DIAB.MNTFU ---
Follow-up Diabetes Medical Nutrition Therapy Assessment Name: Braden Umaña Date: 10/08/21 Time: [id number] Dx: Type II Diabetes Braden presents for follow-up visit regarding T2Dm. States he continues to follow nutrition recs. Reports Naila, his , does cont to worry quite a bit about what he eats, ie PBJ before his workout. Though carbs in this example do not seem excessive and he is using higher fiber bread. BG cont in range when checked. Overall, doing well. Having fish q other week. Interested in more frequently. Diet recall indicates three meals per day. Adequate carb/pro combinations. Great fiber intake. Added veggies to lunch. 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 Has not been to dentist in three years due to no dental insurance and finances. His mother unfortunately passed last month. He is waiting on some inheritance and plans to go to the dentist with these finances. No changes to DM meds. Anthropometrics: Ht: 68 Wt: 178.5# last PCP visit Physical Activity: 2 mi walk twice per week (16 min mile). Walking 1-1.5 mi per day in between. Tue and Fri attends cardiac rehab maintenance program. Self-Monitoring Blood Glucose: Checks BG twice per week. All <114 mg/dL. Checks FBG: usually 104-106 mg/dL. In goal. Pertinent Labs: 05/22/21: hgA1c 6.3% Diabetes Medications: Metformin 1000 mg BID Past Medical History: (Last Reviewed 05/27/21 @ 10:03 by Eneida Gross DO) Asthma CAD (coronary artery disease) HI 06/2018, too small to stent, normal EF Dr. Castrejon NSTEMI 02/11/21 with stenting of the RCA Diabetes mellitus Essential hypertension Hearing loss (~2015) Multiple actinic keratoses (09/09/17) Nephrolithiasis Rosacea (09/09/17) Type 2 diabetes mellitus without complication, without long-term current use of insulin (09/09/17) Vision disorder Nutrition Rx: Carbohydrates: Meal:30-45g Snack:15-30g Nutrition Diagnosis: Nutrition and food related knowledge deficit r/t min DM ed previously aeb pt report- improved Inadequate fiber intake r/t limited fruit or whole grain intake aeb diet recall- improved Suboptimal omega 3 foods intake r/t limited meal planning with fish incorporated aeb pt report- new Intervention: This participant was very receptive. Provided appropriate educational handouts. Discussed the following topics: Blood sugar trends. Successes he is having with lifestyle changes. Ways to incorporate fish weekly. Barriers and potential solutions for dental care deficits Fiber intake Meal planning Family support network and challenges Physical activity plan and progress Created SMART goals for patient self-care and success. Goals: Add veg to lunch (ie salad to chili) - met Check BG at 845a prior to morning walk and after breakfast- met Try to see dentist this year- new Fish once per week- new Follow-up: [facility] follow-up prn. Robin is doing very well with lifestyle changes. Encouraged him to contact me with any questions, concerns, or future follow-up needs. he agreed to this plan. Светлана Castillo RDN, CDCES Certified Diabetes Care and Poultry Vaccinator P: [phone] Thank you for this referral
== END ==
PROVIDERS: Family Provider Specialist; PCP Family Medicine; Referring Provider Family Medicine; Visit Provider Family Medicine
DX: E11.9 Type 2 diabetes mellitus without complications (principal); Z71.3 Dietary counseling and surveillance; Z79.84 Long term (current) use of oral hypoglycemic drugs
CPT/HCPCS: 97803

== ENCOUNTER → 2022-08-21 07:27 | Outpatient (CLI) | payer MEDICARE, SELFPAY ==
[2019-08-29 09:33] VITALS: BMI 26.4
[2022-08-21 08:21] LABS: Add Manual Diff / Slide Review NO; Basophils Absolute Auto 0 /uL (0-100); Basophils Percent Auto 0.7 % (0-2); Eosinophils Absolute Auto 100 /uL (0-450); Eosinophils Percent Auto 2.5 % (2-4); Hematocrit 44.5 % (41-53); Hemoglobin 14.9 g/dL (13.5-17.5); Lymphocytes Absolute Auto 1900 /uL (1100-4500); Lymphocytes Percent Auto 33.1 % (25-40); Mean Corpuscular HGB Conc 33.6 % (30-36); Mean Corpuscular Volume 92.4 fL (80-100); Monocytes Absolute Auto 400 /uL (0-900); Monocytes Percent Auto 7.7 % (3-14); Neutrophils Absolute Auto 3200 /uL (1500-7000); Platelet Count 142 X10^3/uL (150-400); Red Blood Cell Count 4.81 X10^6/uL (4.5-5.9); Red Cell Distribution Width 13.2 % (11.6-14.8); White Blood Cell Count 5.7 X10^3/uL (4.5-11.0)
[2022-08-21 08:30] LABS: Hemoglobin A1C% w Est Avg Glu 8.1 % (4.0-6.0)
[2022-08-21 08:49] LABS: Alanine Aminotransferase 35 IU/L (<50); Albumin 4.3 g/dL (3.5-5.0); Albumin Globulin Ratio 1.6 (1.0-2.8); Alkaline Phosphatase 62 U/L (38-126); Aspartate Aminotransferase 30 IU/L (17-59); Bilirubin Total 0.6 mg/dL (0.2-1.3); Blood Urea Nitrogen 15 mg/dL (9-20); Calcium 8.8 mg/dL (8.4-10.2); Carbon Dioxide 29 mmol/L (22-32); Chloride 101 mmol/L (98-107); Cholesterol 121 mg/dL (140-199); Estimated Glomerular Filt Rate > 60 mL/min (>60); Globulin 2.7 g/dL (1.7-4.1); Glucose 179 mg/dL (80-110); HDL Cholesterol 45 mg/dL (40-60); HEMOLYSIS < 15 (0-50); LDL Cholesterol Calculated 44 mg/dL (<100); Potassium 4.2 mmol/L (3.4-5.1); Sodium 138 mmol/L (137-145); Triglycerides 162 mg/dL (35-150)
[2022-08-21 08:49] LABS: Magnesium 1.8 mg/dL (1.6-2.3)
[2022-08-21 09:17] LABS: Thyroid Stimulating Hormone 1.58 uIU/mL (0.47-4.68)
== END ==
PROVIDERS: Family Provider Specialist; PCP Family Medicine; Referring Provider Specialist; Visit Provider Specialist
DX: I10 Essential (primary) hypertension (principal); E11.9 Type 2 diabetes mellitus without complications; E78.00 Pure hypercholesterolemia, unspecified; I25.10 Atherosclerotic heart disease of native coronary artery without angina pectoris; Z79.899 Other long term (current) drug therapy
CPT/HCPCS: 36415; 80053; 80061; 83036; 83735; 84443; 85025

== ENCOUNTER → 2022-11-24 07:01 | Outpatient (CLI) | payer MEDICARE, SELFPAY ==
[2019-08-29 09:33] VITALS: BMI 26.4
[2022-11-24 09:43] LABS: Creatinine Urine Random 160.9 mg/dL
[2022-11-24 09:46] LABS: Microalbumi Creatinin Ratio Ur 6.8 ug/mg CR (<30); Microalbumin Urine Random 1.1 mg/dL (0-1.6)
[2022-11-25 08:14] LABS: Labcorp Hemoglobin (Hb) A1c 7.2 % (4.8-5.6)
== END ==
PROVIDERS: Family Provider Specialist; PCP Family Medicine; Referring Provider Family Medicine; Visit Provider Family Medicine
DX: E11.9 Type 2 diabetes mellitus without complications (principal)
CPT/HCPCS: 82043; 82570; 83036

== ENCOUNTER 2023-06-26 14:18 | Emergency (ER) | payer MEDICARE, SELFPAY ==
[2019-08-29 09:33] VITALS: BMI 26.4
[2023-06-26] VITALS (26 sets, daily range): BP systolic 103–180; BP diastolic 53–72; PULSE 37–72; RESP 13–26; TEMP 36.6; O2SAT 95–99; BMI 26.6
--- NOTE | 2023-06-26 14:23 | DI.RAD.S_ITS ---
PROCEDURE: XR CHEST 1V INDICATIONS: Shortness of breath TECHNIQUE: One view of the chest was acquired. COMPARISON: [facility], CR, XR CHEST 1V, 02/11/2021, 0:02. FINDINGS: Surgical changes and devices: None. Lungs and pleura: Lungs are clear. No pleural effusions or pneumothorax. Mediastinum: Mediastinal contours appear normal. Heart size is normal. Bones and chest wall: No suspicious bony lesions. Overlying soft tissues appear unremarkable. IMPRESSION: No evidence acute pulmonary process. Dictated by: Alan Vallejo M.D. on 06/26/2023 at 15:05 Approved by: Alan Vallejo M.D. on 06/26/2023 at 15:06
--- NOTE | 2023-06-26 14:35 | ED_ITS ---
HPI - Dizziness <Meredith Cary MD - Last Filed: 07/08/23 18:50> General Chief Complaint: Chest Pain Stated Complaint: sent by wic/dizziness/SOB/chest pain Time Seen by Provider: 06/26/23 14:29 History of Present Illness HPI Narrative: 73-year-old male with history of coronary artery disease presents by private vehicle for 2 days of lightheadedness and chest tightness. Patient initially presented to the walk-in clinic but was referred to the emergency department. In the emergency department triage vitals were notable for a heart rate in the 40s. Patient states that his resting heart rate is usually in the 50s. While resting in the ED bed his symptoms are lessened, but not entirely gone. Related Data Home Medications Medication Instructions Recorded Confirmed aspirin 81 mg tablet,delayed 81 mg PO QDAY ##0 05/25/17 11/28/22 release multivitamin 1 cap PO DAILY 12/30/17 11/28/22 loratadine 10 mg tablet (Allergy 10 mg PO DAILY PRN Allergy Symptoms 02/10/18 11/28/22 Relief (loratadine)) nitroglycerin 0.3 mg sublingual 0.3 mg sublingual Q5-15M PRN 07/02/18 11/28/22 tablet metronidazole 0.75 % topical cream 1 applictn topical DAILY PRN 08/02/18 11/28/22 rosacea metoprolol succinate 25 mg 50 mg PO DAILY 02/28/19 11/28/22 tablet,extended release 24 hr atorvastatin 20 mg tablet 40 mg PO BEDTIME 02/26/21 11/28/22 cyanocobalamin (vitamin B-12) 1,000 mcg PO DAILY 02/26/21 11/28/22 1,000 mcg tablet (Vitamin B-12) magnesium oxide 400 mg PO DAILY 03/26/21 11/28/22 Previous Rx's Medication Instructions Recorded lisinopril 5 mg tablet 5 mg PO DAILY #90 tabs 07/20/18 cholecalciferol (vitamin D3) 50 2,000 unit PO DAILY #90 caps 08/02/18 mcg (2,000 unit) capsule blood-glucose meter (Blood Glucose #1 ea 05/09/21 Monitoring kit) blood sugar diagnostic (Blood #100 ea 05/17/21 Glucose Test strips) lancets #100 ea 05/17/21 metformin 1,000 mg tablet 1,000 mg PO BID #180 tabs 10/13/22 Allergies Allergy/AdvReac Type Severity Reaction Status Date / Time naproxen [From NAPROSYN] Allergy Unknown stomach Verified 11/28/22 08:49 pain Review of Systems <Meredith Cary MD - Last Filed: 07/08/23 18:50> Review of Systems Narrative: Negative except as noted above Patient History <Meredith Cary MD - Last Filed: 07/08/23 18:50> Medical History (Updated 06/26/23 @ 16:23 by Meredith Cary MD) COVID-19 Essential hypertension CAD (coronary artery disease) Vision disorder Asthma Hearing loss (~2015) Nephrolithiasis Diabetes mellitus Type 2 diabetes mellitus without complication, without long-term current use of insulin (09/09/17) Rosacea (09/09/17) Multiple actinic keratoses (09/09/17) Surgical History Anesthesia Ganglion cyst Status post knee surgery Family History Father Heart disease Diabetes mellitus Mother Age: 94 Cancer Hypertension Social History marital status: household members: spouse lives independently: Yes occupational status: other Smoking Status: Never smoker Smoking Status: Never smoker alcohol intake frequency: a few times a week Substance Use Type: does not use Exam <Meredith Cary MD - Last Filed: 07/08/23 18:50> Initial Vital Signs Initial Vital Signs: Vital Signs Pulse Rate 51 L 06/26/23 14:27 Respiratory Rate 16 06/26/23 14:27 Blood Pressure 180/67 H 06/26/23 14:27 Pulse Oximetry 99 06/26/23 14:27 Const: Awake, alert, no acute distress, nontoxic appearing Eyes: PERRL, EOMI, conjunctiva normal ENT: Atraumatic, dentition normal, mucous membranes moist Cardiac: Bradycardia, regular rhythm RESP: unlabored, clear bilaterally, no wheezing GI: Atraumatic, soft, nontender, nondistended, no rebound, no guarding MSK: Atraumatic, full range of motion, pulses equal Skin: Warm, Dry, intact, no rashes Neuro: AO x3, CN II-XII grossly intact, moves all extremities Psych: affect normal, mood normal, not suicidal, not homicidal <Krysta Avalos MD - Last Filed: 06/27/23 02:13> Initial Vital Signs Initial Vital Signs: Vital Signs Pulse Rate 51 L 06/26/23 14:27 Respiratory Rate 16 06/26/23 14:27 Blood Pressure 180/67 H 06/26/23 14:27 Pulse Oximetry 99 06/26/23 14:27 Course <Meredith Cary MD - Last Filed: 07/08/23 18:50> Course Course Narrative: Two days of dizziness and chest tightness. Found to be profoundly bradycardic on exam. EKG is concerning for bradycardia, possible third-degree heart block versus second-degree type 2 heart block 2:1 ratio. Discussed case with cardiology, who recommended transfer to [facility] for monitoring and EP evaluation. Patient placed on dowel maker, defibrillation pads applied. Orders Ordered: ED Orders 06/26/23 14:23 XR chest 1V Stat Measure peak expiratory flow ONCE RT Consult Eval and Treat NOW 06/26/23 14:29 EKG-12 Lead Stat 06/26/23 14:35 Complete Blood Count AUTO DIFF Stat Comprehensive Metabolic Panel Stat Lactate (Lactic Acid) Stat NT-proBNP (BNP-Adult 18+) Stat Prothrombin Time INR Stat Troponin I Stat Reevaluation(s) Reevaluation #1: Labs reviewed. 1800: still pending formal acceptance at [facility] for transfer. Reevaluation #2: Still pending acceptance at [facility]. Care of patient is signed to Dr. Avalos at 1800 Vital Signs Vital signs: Vital Signs - 8 hr 06/26/23 18:19 06/26/23 18:19 06/26/23 18:30 Pulse Rate 39 L 72 Respiratory Rate Blood Pressure 133/62 Pulse Oximetry 97 06/26/23 18:45 06/26/23 18:45 06/26/23 19:00 Pulse Rate 39 L Respiratory Rate 22 Blood Pressure 138/63 117/56 L Pulse Oximetry 97 06/26/23 19:00 06/26/23 19:30 06/26/23 19:31 Pulse Rate 39 L 37 L 38 L Respiratory Rate 23 23 24 Blood Pressure Pulse Oximetry 96 96 96 06/26/23 19:31 06/26/23 20:00 06/26/23 20:01 Pulse Rate 37 L 37 L Respiratory Rate 20 26 H Blood Pressure 134/58 L Pulse Oximetry 97 95 06/26/23 20:01 Pulse Rate Respiratory Rate Blood Pressure 115/56 L Pulse Oximetry <Krysta Avalos MD - Last Filed: 06/27/23 02:13> Orders Ordered: ED Orders 06/26/23 14:23 XR chest 1V Stat Measure peak expiratory flow ONCE RT Consult Eval and Treat NOW 06/26/23 14:29 EKG-12 Lead Stat 06/26/23 14:35 Complete Blood Count AUTO DIFF Stat Comprehensive Metabolic Panel Stat Lactate (Lactic Acid) Stat NT-proBNP (BNP-Adult 18+) Stat Prothrombin Time INR Stat Troponin I Stat Vital Signs Vital signs: Vital Signs - 8 hr 06/26/23 18:19 06/26/23 18:19 06/26/23 18:30 Pulse Rate 39 L 72 Respiratory Rate Blood Pressure 133/62 Pulse Oximetry 97 06/26/23 18:45 06/26/23 18:45 06/26/23 19:00 Pulse Rate 39 L Respiratory Rate 22 Blood Pressure 138/63 117/56 L Pulse Oximetry 97 06/26/23 19:00 06/26/23 19:30 06/26/23 19:31 Pulse Rate 39 L 37 L 38 L Respiratory Rate 23 23 24 Blood Pressure Pulse Oximetry 96 96 96 06/26/23 19:31 06/26/23 20:00 06/26/23 20:01 Pulse Rate 37 L 37 L Respiratory Rate 20 26 H Blood Pressure 134/58 L Pulse Oximetry 97 95 06/26/23 20:01 Pulse Rate Respiratory Rate Blood Pressure 115/56 L Pulse Oximetry MDM - Dizziness <Meredith Cary MD - Last Filed: 07/08/23 18:50> Lab Data 06/26/23 14:35 06/26/23 14:35 Labs: Lab Results 06/26/23 06/26/23 Range/Units 14:35 16:51 WBC 7.8 (4.5-11.0) X10^3/uL RBC 4.82 (4.5-5.9) X10^6/uL Hgb 15.3 (13.5-17.5) g/dL Hct 43.8 (41-53) % MCV 91.0 (80-100) fL MCH 31.8 (26-34) PG MCHC 35.0 (30-36) % RDW 13.1 (11.6-14.8) % Plt Count 143 L (150-400) X10^3/uL Neut % (Auto) 52.0 (50-75) % Lymph % (Auto) 36.3 (25-40) % [place] % (Auto) 9.0 (3-14) % Eos % (Auto) 2.0 (2-4) % Baso % (Auto) 0.7 (0-2) % Neut # (Auto) 4100 (1482-6286) /uL Lymph # (Auto) 2800 (2066-8857) /uL [place] # (Auto) 700 (0-900) /uL Eos # (Auto) 200 (0-450) /uL Baso # (Auto) 100 (0-100) /uL PT 11.1 (10.1-12.7) SECONDS INR 1.0 (0.9-1.3) Sodium 135 L (137-145) mmol/L Potassium 4.4 (3.4-5.1) mmol/L Chloride 96 L (98-107) mmol/L Carbon Dioxide 27 (22-32) mmol/L BUN 23 H (9-20) mg/dL Creatinine 1.14 (0.66-1.25) mg/dL Estimated GFR > 60 (>60) mL/min BUN/Creatinine Ratio 20.2 (6-22) Glucose 203 H (80-110) mg/dL Lactate 4.1 H* 3.3 H (0.7-2.1) mmol/L Calcium 10.0 (8.4-10.2) mg/dL Total Bilirubin 0.6 (0.2-1.3) mg/dL AST 35 (17-59) IU/L ALT 39 (<50) IU/L Alkaline Phosphatase 46 (38-126) U/L Troponin I < 0.012 (0.01-0.034) ng/mL NT-Pro-B Natriuret Pep 214 H (<125) pg/mL Total Protein 7.3 (6.3-8.2) g/dL Albumin 4.7 (3.5-5.0) g/dL Globulin 2.6 (1.7-4.1) g/dL Albumin/Globulin Ratio 1.8 (1.0-2.8) ECG Data Interpretation: Complete heart block, bradycardia rate 42bpm. LBBB (previously seen), no STEMI <Krysta Avalos MD - Last Filed: 06/27/23 02:13> Lab Data Labs: Lab Results 06/26/23 06/26/23 Range/Units 14:35 16:51 WBC 7.8 (4.5-11.0) X10^3/uL RBC 4.82 (4.5-5.9) X10^6/uL Hgb 15.3 (13.5-17.5) g/dL Hct 43.8 (41-53) % MCV 91.0 (80-100) fL MCH 31.8 (26-34) PG MCHC 35.0 (30-36) % RDW 13.1 (11.6-14.8) % Plt Count 143 L (150-400) X10^3/uL Neut % (Auto) 52.0 (50-75) % Lymph % (Auto) 36.3 (25-40) % [place] % (Auto) 9.0 (3-14) % Eos % (Auto) 2.0 (2-4) % Baso % (Auto) 0.7 (0-2) % Neut # (Auto) 4100 (7289-6551) /uL Lymph # (Auto) 2800 (2412-5580) /uL [place] # (Auto) 700 (0-900) /uL Eos # (Auto) 200 (0-450) /uL Baso # (Auto) 100 (0-100) /uL PT 11.1 (10.1-12.7) SECONDS INR 1.0 (0.9-1.3) Sodium 135 L (137-145) mmol/L Potassium 4.4 (3.4-5.1) mmol/L Chloride 96 L (98-107) mmol/L Carbon Dioxide 27 (22-32) mmol/L BUN 23 H (9-20) mg/dL Creatinine 1.14 (0.66-1.25) mg/dL Estimated GFR > 60 (>60) mL/min BUN/Creatinine Ratio 20.2 (6-22) Glucose 203 H (80-110) mg/dL Lactate 4.1 H* 3.3 H (0.7-2.1) mmol/L Calcium 10.0 (8.4-10.2) mg/dL Total Bilirubin 0.6 (0.2-1.3) mg/dL AST 35 (17-59) IU/L ALT 39 (<50) IU/L Alkaline Phosphatase 46 (38-126) U/L Troponin I < 0.012 (0.01-0.034) ng/mL NT-Pro-B Natriuret Pep 214 H (<125) pg/mL Total Protein 7.3 (6.3-8.2) g/dL Albumin 4.7 (3.5-5.0) g/dL Globulin 2.6 (1.7-4.1) g/dL Albumin/Globulin Ratio 1.8 (1.0-2.8) MDM Narrative Medical decision making narrative: Consult VM: Emperatriz Ferguson Accepts patient for transfer, rec Tele bed, hold beta lucy. Dr Alba, hospitalist. Except patient in transfer. Transfer center will contact us with bed and we will arrange for ALS transport CC: 2 days of lightheadedness and intermittent chest tightness Complicating co-morbidities: Coronary artery disease most recent NSTEMI was 2020, he is on a beta-lucy, hyperlipidemia, diet controlled with metformin diabetes Data collected from: patient, Medical records reviewed: Primary care notes from May of 2022 and May of 2021 are reviewed. Cardiology notes from August of 2022 are reviewed Differential considered: Exam documented above, pertinent findings include: Asymptomatic at rest and remainder of exam is otherwise benign. No clinical signs or symptoms of congestive heart failure Lab Test results independently reviewed as above. Pertinent findings: CBC is unremarkable Chemistries are notable for a creatinine at 1.1 and glucose at 2:03 a.m. Initial lactic acid is 4.1 on repeat is 3.3 there is no history no clinical signs of symptoms of infection. I suspect that this is poor perfusion related to his bradycardia over the last 48 hours Independently reviewed EKG third-degree block, rate of 42. No ischemic changes Imaging studies independently reviewed: Chest x-ray is unremarkable, no cardiomegaly or congestive heart failure Consultations: Initially reviewed with auxiliary powerplant operator at [facility] with recommendation to transfer. Unfortunately beds were not available. Eventual bed found at [facility] please see consult above. Reviewed with Cardiology and accepted by hospitalist service Treatments: Telemetry observation and no additional medical treatment while in the emergency department Re-evaluations: Patient has been hemodynamically stable. Heart rates dipping as low as the mid 30s. As long as he is at rest he is not dizzy, having chest pain or feeling weak. Discussion: 73-year-old gentleman presenting with most likely third-degree heart block increasing chest pain weakness and dizziness over the past 48 hours. We will need further evaluation. Will be admitted to [facility] for continued care, telemetry bed, beta-lucy will be held. He will need ALS transport to [facility]. Findings and plans for transfer to [place] rather than [facility] are reviewed with the patient questions are answered and at this time he is safe for transfer Critical Care Time <Krysta Avalos MD - Last Filed: 06/27/23 02:13> Critical Care Time Critical Care Time: Yes Total Critical Care Time: 47 Attestation: Critical care time is separate from other billable procedures. There is a high probability of a significant, sudden or life-threatening deterioration that requires my full and direct attention, intervention and personal management. This critical care time includes consultation with family and other consulting doctors, review of records, and interpretation of data from labs, EKGs and imaging as well as managements of complete heart block with extensive time put into consultation with multiple hospitals to find appropriate placement for cardiac evaluation. Discharge Plan Departure Patient Disposition: [facility] Clinical Impression: Complete heart block Prescriptions: No Action metoprolol succinate 25 mg tablet extended release 24 hr 50 mg PO DAILY magnesium oxide 400 mg magnesium tablet 400 mg PO DAILY atorvastatin 20 mg tablet 40 mg PO BEDTIME cyanocobalamin (vitamin B-12) [Vitamin B-12] 1,000 mcg tablet 1,000 mcg PO DAILY metformin 1,000 mg tablet 1,000 mg PO BID Qty: 180 3RF aspirin 81 MG tablet,delayed release (DR/EC) 81 mg PO QDAY Qty: 0 lisinopril 5 mg tablet 5 mg PO DAILY Qty: 90 3RF (DME) blood-glucose meter [Blood Glucose Monitoring] Kit See Rx Instructions .Route Qty: 1 0RF Rx Instructions: As directed (DME) Blood Glucose Test Strip See Rx Instructions .ROUTE .MEDSUPPLY Qty: 100 11RF Rx Instructions: Use to test blood sugar daily as directed by physician (KAVITHA) vaishnavi [facility] See Rx Instructions .ROUTE .MEDSUPPLY Qty: 100 11RF Rx Instructions: Use to test bood sugar daily as directed by physician nitroglycerin 0.3 mg tablet, sublingual 0.3 mg SL Q5-15M PRN metronidazole 0.75 % cream 1 applictn TOP DAILY PRN (Reason: rosacea) cholecalciferol (vitamin D3) 2,000 unit capsule 2,000 unit PO DAILY Qty: 90 0RF multivitamin capsule 1 cap PO DAILY loratadine [Allergy Relief (loratadine)] 10 mg tablet 10 mg PO DAILY PRN (Reason: Allergy Symptoms) Referrals: Eneiad Gross DO [Primary Care Provider] -
[2023-06-26 14:48] LABS: Add Manual Diff / Slide Review NO; Basophils Absolute Auto 100 /uL (0-100); Basophils Percent Auto 0.7 % (0-2); Eosinophils Absolute Auto 200 /uL (0-450); Hematocrit 43.8 % (41-53); Hemoglobin 15.3 g/dL (13.5-17.5); Lymphocytes Absolute Auto 2800 /uL (1100-4500); Lymphocytes Percent Auto 36.3 % (25-40); Mean Corpuscular Hemoglobin 31.8 PG (26-34); Monocytes Absolute Auto 700 /uL (0-900); Neutrophils Absolute Auto 4100 /uL (1500-7000); Platelet Count 143 X10^3/uL (150-400); Red Blood Cell Count 4.82 X10^6/uL (4.5-5.9); Red Cell Distribution Width 13.1 % (11.6-14.8); White Blood Cell Count 7.8 X10^3/uL (4.5-11.0)
[2023-06-26 15:02] LABS: Prothrombin Time 11.1 SECONDS (10.1-12.7)
[2023-06-26 15:07] LABS: Alanine Aminotransferase 39 IU/L (<50); Albumin 4.7 g/dL (3.5-5.0); Albumin Globulin Ratio 1.8 (1.0-2.8); Alkaline Phosphatase 46 U/L (38-126); Aspartate Aminotransferase 35 IU/L (17-59); BUN Creatinine Ratio 20.2 (6-22); Bilirubin Total 0.6 mg/dL (0.2-1.3); Blood Urea Nitrogen 23 mg/dL (9-20); Carbon Dioxide 27 mmol/L (22-32); Chloride 96 mmol/L (98-107); Estimated Glomerular Filt Rate > 60 mL/min (>60); Globulin 2.6 g/dL (1.7-4.1); Glucose 203 mg/dL (80-110); HEMOLYSIS < 15 (0-50); Potassium 4.4 mmol/L (3.4-5.1); Sodium 135 mmol/L (137-145); Total Protein 7.3 g/dL (6.3-8.2)
[2023-06-26 15:09] LABS: Lactate (Lactic Acid) 4.1 mmol/L (0.7-2.1)
--- NOTE | 2023-06-26 15:11 | PC.NURSE ---
This RN called Sd from Respiratory therapy and asked him to come do the Consult eval and treat and measure peak expiratory flow.
[2023-06-26 15:18] LABS: Troponin I < 0.012 ng/mL (0.01-0.034)
[2023-06-26 15:37] LABS: NT-proBNP (BNP-Adult 18+) 214 pg/mL (<125)
[2023-06-26 16:40] LABS: Reflexed Lactate in 2 Hours Y
[2023-06-26 17:21] LABS: Lactate 2HR (Lactic Acid Rflx) 3.3 mmol/L (0.7-2.1)
--- NOTE | 2023-06-26 18:22 | PC.NURSE ---
PROJECT CONTROLS SCHEDULER NOTE: received a call back from Lynne the electrician apprentice powerhouse at [facility] who said they filled up their CCU and wont have a bed until tomorrow Spoke to Camilla at [facility] and she will see what they have available @ 1811 Spoke to Nick at [facility] and I was unable to place the patient on a wait list due to them being @ capacity; was told to try other places because it will probably be two days Spoke to Alka at [facility] and after telling Alka pt will need a ICU bed she said to try after 2199; Alka then called back and spoke to KYLEE Quevedo and told her they have 1 ICU bed faxed facesheet and pushed images
--- NOTE | 2023-06-26 19:57 | PC.NURSE ---
pt aao x 3 denies any c/o at this time at bedside
== END 2023-06-26 20:29 | disposition short-term general hospital (02) ==
PROVIDERS: Emergency Medicine; Emergency Provider Emergency Medicine; Family Provider Specialist; PCP Family Medicine
DX: I44.2 Atrioventricular block, complete (principal); R06.02 Shortness of breath; R00.1 Bradycardia, unspecified
CPT/HCPCS: 36415; 71045; 80053; 83605; 83880; 84484; 85025; 85610; 93005; 99284; 99291